=== PATIENT | female | born 1965 | race Caucasian/White ===

== ENCOUNTER 2017-11-10 19:30 | Inpatient (IN) | payer MEDICARE, MEDICAID ==
[2017-11-10 20:46] LABS: ABS Basophils 0.1 10^3/ul (0-0.2); ABS Eosinophils 0 10^3/ul (0-0.6); ABS Lymphocytes 2.2 10^3/ul (1.0-4.8); ABS Monocytes 0.8 10^3/ul (0-0.8); ABS Neutrophils 5.8 10^3/ul (1.5-7.7); ABS Nucleated RBC 0.01 10^3/ul; Eosinophil % 0.1 % (0-6); Hematocrit 45 % (35-47); Hemoglobin 15.4 g/dl (12.0-16.0); Lymphocyte % 24.7 % (25-47); Mean Corpuscular HGB Conc 34 g/dl (31-36); Mean Corpuscular Hemoglobin 29 pg (27-31); Mean Corpuscular Volume 86 fL (80-97); Mean Platelet Volume 9 um3 (7.4-10.4); Nucleated Red Blood Cells % 0.1; Platelet Count 198 10^3/ul (150-450); Red Blood Count 5.23 10^6/ul (4.0-5.4); Red Cell Distribution Width 16 % (10.5-15)
[2017-11-10 20:58] LABS: EGFR Non-African American 79.3 (>60)
[2017-11-10] MEDS ORDERED: Ibuprofen TAB* 600 MG PO ONE (21:26)
[2017-11-10 22:59] LABS: Urine Appearance Cloudy; Urine Blood Negative (Negative); Urine Color Amber; Urine Ketones Negative (Negative); Urine Protein Negative (Negative); Urine Specific Gravity 1.025 (1.010-1.030); Urine Urobilinogen Negative (Negative)
--- NOTE | 2017-11-11 | ED ---
Psychiatric Complaint - HPI Summary HPI Summary: Patient presents to the ED with CC of depression, SI and anxiety. She states she just feels "sick" with heart racing, nausea, fatigue. She also has been burning herself frequently on the bilateral arms and there are new and old scars to the arms. Denies urinary symptoms, chest pain. Notes to pain in the bilateral arms. Last suicide attempt many years ago, but states she has been feeling sick for 8 months. Denies HI. Notes to SI, but denies currently. - History Of Current Complaint Chief Complaint: EDMentalHealth Time Seen by Provider: 11/10/17 19:53 Hx Obtained From: Patient Hx Last Menstrual Period: one month ago ?: No Onset/Duration: Sudden Onset Timing: Constant Severity Initially: Moderate Severity Currently: Moderate Aggravating Factor(s): Nothing Alleviating Factor(s): Nothing Associated Signs And Symptoms: Positive: Negative Related History: Positive For: Prior Psychiatric Issues Has Suicidal: Reports: Thoughts - Risk Factor(s) Completed Suicide Risk Factors: Negative - Allergies/Home Medications Allergies/Adverse Reactions: Allergies Allergy/AdvReac Type Severity Reaction Status Date / Time Lurasidone [From Latuda] Allergy Swelling Verified 11/10/17 21:02 Of Face,Lips,& Throat Home Medications: Home Medications Aclidinium [place] [Tudorza Pressair] 400 mcg INHH BID 11/11/17 [History Confirmed 11/11/17] Budesonide/Formote 160/4.5(NF) [Symbicort 160/4.5 (NF)] 2 puff INH BID 11/11/17 [History Confirmed 11/11/17] Clozapine [Clozaril] 100 mg PO BID 11/11/17 [History Confirmed 11/11/17] Ibuprofen TAB* [Motrin TAB* 400 MG] 400 mg PO Q8HR PRN 11/11/17 [History Confirmed 11/11/17] Loperamide CAP* [Imodium CAP*] 2 mg PO SEE INSTRUCTIONS PRN MDD 4 tabs/24hr period 11/11/17 [History Confirmed 11/11/17] Lorazepam [Ativan 0.5 MG TAB] 0.5 mg PO DAILY 11/11/17 [History Confirmed ] Olanzapine [Zyprexa] 10 mg PO QAM 11/11/17 [History Confirmed 11/11/17] Paroxetine HCl [Paxil] 10 mg PO QAM 11/11/17 [History Confirmed 11/11/17] Pindolol 5 mg PO QAM 11/11/17 [History Confirmed 11/11/17] busPIRone TAB* [Buspar TAB *] 30 mg PO BID 11/11/17 [History Confirmed 11/11/17] PMH/Surg Hx/FS Hx/Imm Hx Previously Healthy: No Endocrine/Hematology History: Reports: Hx Anticoagulant Therapy, Hx Systemic Lupus Erythematosus, Hx Thyroid Disease Denies: Hx Blood Disorders, Hx Blood Transfusions, Hx Bone Marrow Disease, Hx Diabetes, Hx Sickle Cell Disease, Hx Anemia, Hx Unexplained Bleeding, Other Endocrine/Hematological Disorders Cardiovascular History: Reports: Hx Angina, Hx Deep Vein Thrombosis, Hx Hypercholesterolemia Denies: Hx Aneurysm, Hx Angioplasty, Hx Auto Implanted Cardiovert Defib, Hx Cardiac Arrest, Hx Cardiomegaly, Hx Congenital Heart Disease, Hx Congestive Heart Failure, Hx Coronary Artery Disease, Hx Hypotension, Hx Hypertension, Hx Myocardial Infarction, Hx Pacemaker/ICD, Hx Peripheral Vascular Disease, Hx Rheumatic Fever, Hx Syncope, Hx Valvular Heart Disease, Other Cardiovascular Problems/Disorders Respiratory History: Reports: Hx Asthma, Hx Chronic Bronchitis, Hx Chronic Obstructive Pulmonary Disease (COPD), Hx Lung Cancer - surgery 1999, Hx Pleural Effusion, Hx Pneumonia, Hx Pulmonary Embolism, Other Respiratory Problems/ Disorders Denies: Hx Cystic Fibrosis, Hx Pulmonary Edema, Hx Seasonal Allergies, Hx Sleep Apnea GI History: Reports: Hx Gastroesophageal Reflux Disease, Hx Irritable Bowel Denies: Hx Cirrhosis, Hx Crohn's Disease, Hx Diverticulosis, Hx Gall Bladder Disease, Hx Gastrointestinal Bleed, Hx Hiatal Hernia, Hx Jaundice, Hx Obstructive Bowel, Hx Ileostomy, Hx Pyloric Stenosis, Hx Ulcer, Other GI Disorders History: Denies: Hx Acute Renal Failure, Hx Benign Prostatic Hyperplasia, Hx Chronic Renal Failure, Hx Dialysis, Hx Kidney Infection, Hx Kidney Stones, Hx Renal Disease, Other Problems/Disorders Musculoskeletal History: Reports: Hx Back Problems Denies: Hx Arthritis, Hx Bursitis, Hx Congenital Bone Abnormalities, Hx Fibromyalgia, Hx Gout, Hx Orthopedic Injury, Hx Osteoporosis, Hx Scoliosis, Hx Tendonitis, Other Musculoskeletal History Sensory History: Reports: Hx Contacts or Glasses, Hx Vision Problem Denies: Hx Cataracts, Hx Eye Injury, Hx Eye Prosthesis, Hx Glaucoma, Hx Macular Degeneration, Hx Deafness, Hx Hearing Aid, Hx Hearing Problem, Other Sensory Impairments Opthamlomology History: Reports: Hx Contacts or Glasses, Hx Vision Problem Denies: Hx Cataracts, Hx Eye Injury, Hx Eye Prosthesis, Hx Glaucoma, Hx Macular Degeneration, Other Sensory Impairments Neurological History: Reports: Other Neuro Impairments/Disorders - tardive dyskinesia Denies: Hx Dementia, Hx Developmental Delay, Hx Headaches, Hx Migraine, Hx Seizures, Hx Spinal Cord Injury, Hx Transient Ischemic Attacks (TIA) Psychiatric History: Reports: Hx Anxiety, Hx Depression, Hx Panic Disorder - TAKES MEDICATION FOR ANXIETY, Hx Post Traumatic Stress Disorder, Hx Inpatient Treatment, Hx Community Mental Health Tx, Hx Schizophrenia - Schizodepressive discorder, Hx Bipolar Disorder, Hx Suicide Attempt, Hx Substance Abuse, Other Psychiatric Issues/Disorders - schioeffect disorder Denies: Hx Attention Deficit Hyperactivity Disorder, Hx Eating Disorder, Hx of Violent Episodes Against Others - Cancer History Cancer Type, Location and Year: rt lung 2006 Hx Chemotherapy: No Hx Radiation Therapy: No - Surgical History Surgery Procedure, Year, and Place: partial lobectomy right lung 2006, LSP SURGERY February 2014, back surgery 2014 Hx Anesthesia Reactions: No - Immunization History Date of Tetanus Vaccine: 2011 Date of Influenza Vaccine: None Hx Pertussis Vaccination: No Immunizations Up to Date: Unable to Obtain/Confirm Infectious Disease History: No Infectious Disease History: Denies: Hx Clostridium Difficile, Hx Hepatitis, Hx Human Immunodeficiency Virus (HIV), Hx Shingles, Hx Tuberculosis, Traveled Outside the in Last 30 Days - Social History Occupation: Unemployed Lives: With Family Alcohol Use: None Alcohol Amount: Pt denies Hx Substance Use: No Substance Use Type: Reports: None Hx Tobacco Use: Yes Smoking Status (MU): Heavy Every Day Tobacco Smoker Type: Cigarettes Amount Used/How Often: 1PPD X 30 YRS Length of Time of Smoking/Using Tobacco: 30 YEARS Have You Smoked in the Last Year: Yes Review of Systems Constitutional: Negative Negative: Fever, Chills, Fatigue Eyes: Negative Cardiovascular: Negative Respiratory: Negative Gastrointestinal: Negative Positive: no symptoms reported, see HPI Musculoskeletal: Negative Neurological: Negative Psychological: Normal All Other Systems Reviewed And Are Negative: Yes Physical Exam Triage Information Reviewed: Yes Vital Signs On Initial Exam: Initial Vitals Temp Pulse Resp BP Pulse Ox 97.1 F 109 22 131/79 96 11/10/17 19:51 11/10/17 19:51 11/10/17 19:51 11/10/17 19:51 11/10/17 19:51 Vital Signs Reviewed: Yes Appearance: Positive: Well-Appearing, Well-Nourished Skin: Positive: Warm, Skin Color Reflects Adequate Perfusion, Other - bilateral arms with perry Eyes: Positive: EOMI, SHANIA, Conjunctiva Clear Neck: Positive: Supple, No Lymphadenopathy Respiratory/Lung Sounds: Positive: Clear to Auscultation Cardiovascular: Positive: RRR, Pulses are Symmetrical in both Upper and Lower Extremities Musculoskeletal: Positive: Normal, Strength/ROM Intact Neurological: Positive: Speech Normal Psychiatric: Positive: Normal, Affect/Mood Appropriate AVPU Assessment: Alert Diagnostics - Vital Signs Vital Signs Temp Pulse Resp BP Pulse Ox 11/10/17 19:51 97.1 F 109 22 131/79 96 - Laboratory Lab Results: Lab Results 11/10/17 11/10/17 11/10/17 Range/Units 20:31 20:31 22:40 WBC 9.0 (3.5-10.8) 10^3/ul RBC 5.23 (4.0-5.4) 10^6/ul Hgb 15.4 (12.0-16.0) g/dl Hct 45 (35-47) % MCV 86 (80-97) fL MCH 29 (27-31) pg MCHC 34 (31-36) g/dl RDW 16 H (10.5-15) % Plt Count 198 (150-450) 10^3/ul MPV 9 (7.4-10.4) um3 Neut % (Auto) 65.2 (38-83) % Lymph % (Auto) 24.7 L (25-47) % [facility] % (Auto) 9.3 H (1-9) % Eos % (Auto) 0.1 (0-6) % Baso % (Auto) 0.7 (0-2) % Absolute Neuts (auto) 5.8 (1.5-7.7) 10^3/ul Absolute Lymphs (auto) 2.2 (1.0-4.8) 10^3/ul Absolute Monos (auto) 0.8 (0-0.8) 10^3/ul Absolute Eos (auto) 0 (0-0.6) 10^3/ul Absolute Basos (auto) 0.1 (0-0.2) 10^3/ul Absolute Nucleated RBC 0.01 10^3/ul Nucleated RBC % 0.1 Sodium 139 (133-145) mmol/L Potassium 3.8 (3.5-5.0) mmol/L Chloride 106 (101-111) mmol/L Carbon Dioxide 24 (22-32) mmol/L Anion Gap 9 (2-11) mmol/L BUN 13 (6-24) mg/dL Creatinine 0.76 (0.51-0.95) mg/dL Est GFR ( Amer) 102.0 (>60) Est GFR (Non-Af Amer) 79.3 (>60) BUN/Creatinine Ratio 17.1 (8-20) Glucose 113 H (70-100) mg/dL Calcium 9.0 (8.6-10.3) mg/dL Total Bilirubin 0.30 (0.2-1.0) mg/dL AST 14 (13-39) U/L ALT 14 (7-52) U/L Alkaline Phosphatase 105 H (34-104) U/L Total Protein 6.5 (6.4-8.9) g/dL Albumin 3.6 (3.2-5.2) g/dL Globulin 2.9 (2-4) g/dL Albumin/Globulin Ratio 1.2 (1-3) TSH 5.43 (0.34-5.60) mcIU/mL Urine Color Urine Appearance Urine pH (5-9) Ur Specific [place] (1.010-1.030) Urine Protein (Negative) Urine Ketones (Negative) Urine Blood (Negative) Urine Nitrate (Negative) Urine Bilirubin (Negative) Urine Urobilinogen (Negative) Ur Leukocyte Esterase (Negative) Urine WBC (Auto) (Absent) Urine RBC (Auto) (Absent) Ur Squamous Epith Cells (Absent) Urine Bacteria (Absent) Urine Glucose (Negative) Urine Ascorbic Acid (Negative) Salicylates < 2.50 (<30) mg/dL Urine Opiates Screen None detected (None Detect) Acetaminophen < 15 mcg/mL Ur Barbiturates Screen None detected (None Detect) Ur Phencyclidine Scrn None detected (None Detect) Ur Amphetamines Screen None detected (None Detect) U Benzodiazepines Scrn None detected (None Detect) Urine Cocaine Screen None detected (None Detect) U Cannabinoids Screen None detected (None Detect) Serum Alcohol < 10 (<10) mg/dL 11/10/17 Range/Units 22:40 WBC (3.5-10.8) 10^3/ul RBC (4.0-5.4) 10^6/ul Hgb (12.0-16.0) g/dl Hct (35-47) % MCV (80-97) fL MCH (27-31) pg MCHC (31-36) g/dl RDW (10.5-15) % Plt Count (150-450) 10^3/ul MPV (7.4-10.4) um3 Neut % (Auto) (38-83) % Lymph % (Auto) (25-47) % [facility] % (Auto) (1-9) % Eos % (Auto) (0-6) % Baso % (Auto) (0-2) % Absolute Neuts (auto) (1.5-7.7) 10^3/ul Absolute Lymphs (auto) (1.0-4.8) 10^3/ul Absolute Monos (auto) (0-0.8) 10^3/ul Absolute Eos (auto) (0-0.6) 10^3/ul Absolute Basos (auto) (0-0.2) 10^3/ul Absolute Nucleated RBC 10^3/ul Nucleated RBC % Sodium (133-145) mmol/L Potassium (3.5-5.0) mmol/L Chloride (101-111) mmol/L Carbon Dioxide (22-32) mmol/L Anion Gap (2-11) mmol/L BUN (6-24) mg/dL Creatinine (0.51-0.95) mg/dL Est GFR ( Amer) (>60) Est GFR (Non-Af Amer) (>60) BUN/Creatinine Ratio (8-20) Glucose (70-100) mg/dL Calcium (8.6-10.3) mg/dL Total Bilirubin (0.2-1.0) mg/dL AST (13-39) U/L ALT (7-52) U/L Alkaline Phosphatase (34-104) U/L Total Protein (6.4-8.9) g/dL Albumin (3.2-5.2) g/dL Globulin (2-4) g/dL Albumin/Globulin Ratio (1-3) TSH (0.34-5.60) mcIU/mL Urine Color Maty Urine Appearance Cloudy Urine pH 5.0 (5-9) Ur Specific [place] 1.025 (1.010-1.030) Urine Protein Negative (Negative) Urine Ketones Negative (Negative) Urine Blood Negative (Negative) Urine Nitrate Positive H (Negative) Urine Bilirubin Negative (Negative) Urine Urobilinogen Negative (Negative) Ur Leukocyte Esterase 1+ H (Negative) Urine WBC (Auto) 3+(>20/hpf) H (Absent) Urine RBC (Auto) Absent (Absent) Ur Squamous Epith Cells Present H (Absent) Urine Bacteria 1+ H (Absent) Urine Glucose Negative (Negative) Urine Ascorbic Acid * H (Negative) Salicylates (<30) mg/dL Urine Opiates Screen (None Detect) Acetaminophen mcg/mL Ur Barbiturates Screen (None Detect) Ur Phencyclidine Scrn (None Detect) Ur Amphetamines Screen (None Detect) U Benzodiazepines Scrn (None Detect) Urine Cocaine Screen (None Detect) U Cannabinoids Screen (None Detect) Serum Alcohol (<10) mg/dL Result Diagrams: 11/10/17 20:31 11/10/17 20:31 Lab Statement: Any lab studies that have been ordered have been reviewed, and results considered in the medical decision making process. Course/Dx - Course Course Of Treatment: Patient presents to the ED with CC of SI, feeling sick, and self harm. She is cleared for MHU at this time. - Differential Dx/Clinical Impression Provider Diagnosis: Depression Discharge - Discharge Plan Condition: Stable Disposition: ADMITTED TO [facility]
[2017-11-11] MEDS ORDERED: Al Hydrox/Mg Hydrox/Simet LIQ* 30 ML UDC PO PRN (02:53)
[2017-11-11] MEDS ORDERED: Acetaminophen TAB* 325 MG PO PRN (02:53)
[2017-11-11] MEDS ORDERED: Loperamide CAP* 2 MG PO PRN (03:22)
[2017-11-11] MEDS: Albuterol HFA INHALER* 8 gm MDI INH SCH ×5 (06:15→21:48)
[2017-11-11] MEDS: LORazepam TAB(*) 0.5 MG PO SCH ×2 (06:30→08:48)
[2017-11-11] MEDS ORDERED: LORazepam TAB(*) 0.5 MG ONE (06:33)
[2017-11-11] MEDS: Nicotine PATCH 21 MG/24 HR* PATCH TRANSDERM SCH (08:44)
[2017-11-11] MEDS: Gabapentin CAP(*) 300 MG PO SCH ×2 (08:46→21:47)
[2017-11-11] MEDS: CloZAPine TAB* 100 MG TAB PO SCH (08:47)
[2017-11-11] MEDS: OLANzapine TAB* 10 MG PO SCH (08:47)
[2017-11-11] MEDS: busPIRone TAB* 30 MG PO SCH ×2 (08:47→21:47)
[2017-11-11] MEDS: PARoxetine HCL TAB* 10 MG PO SCH (08:47)
[2017-11-11] MEDS: Vitamin B Complex TAB PO SCH (08:47)
[2017-11-11] MEDS: Vitamin THERAPEUTIC TAB PO SCH (08:48)
[2017-11-11] MEDS: Atorvastatin* 10 MG TAB PO SCH (08:48)
[2017-11-11] MEDS: Mouth Piece, Nicotine* 1 EACH CARTRIDGE INH SCH (08:52)
[2017-11-11] MEDS: Nicotine Inhaler* 10 MG AMP INH PRN ×2 (08:52→18:51)
[2017-11-11] MEDS: PTO: Aclidinium POWDER MDI(NF) INH SCH ×2 (09:02→21:48)
[2017-11-11] MEDS: PINDOLOL 10 MG PO SCH (09:08)
[2017-11-11] MEDS: Mometasone/Formoter 200/5 MDI INH SCH ×2 (09:09→21:49)
[2017-11-11] MEDS: Gabapentin CAP(*) 400 MG PO SCH (13:06)
[2017-11-11] MEDS: Warfarin TAB(*) 7.5 MG PO SCH (17:49)
[2017-11-11] MEDS: Omeprazole CAP* 20 MG PO SCH (17:49)
[2017-11-11] MEDS ORDERED: CloZAPine TAB* 100 MG TAB PO SCH (21:00)
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
[2017-11-11] MEDS: traZODone TAB* 100 MG PO SCH (21:48)
[2017-11-11] MEDS: Nicotine Patch Removal NOTE PATCH OFF SCH (21:49)
[2017-11-12] MEDS: Albuterol HFA INHALER* 8 gm MDI INH SCH ×6 (01:19→20:13)
[2017-11-12] MEDS: PTO: Aclidinium POWDER MDI(NF) INH SCH ×2 (07:25→20:11)
[2017-11-12 08:32] LABS: INR 1.44 (0.77-1.02)
[2017-11-12] MEDS: PINDOLOL 10 MG PO SCH (08:50)
[2017-11-12] MEDS: Atorvastatin* 10 MG TAB PO SCH (09:19)
[2017-11-12] MEDS: Mometasone/Formoter 200/5 MDI INH SCH ×2 (09:20→20:10)
[2017-11-12] MEDS: CloZAPine TAB* 100 MG TAB PO SCH (09:20)
[2017-11-12] MEDS: busPIRone TAB* 30 MG PO SCH ×2 (09:20→20:12)
[2017-11-12] MEDS: Gabapentin CAP(*) 300 MG PO SCH ×2 (09:20→20:12)
[2017-11-12] MEDS: Nicotine PATCH 21 MG/24 HR* PATCH TRANSDERM SCH (09:21)
[2017-11-12] MEDS: PARoxetine HCL TAB* 10 MG PO SCH (09:21)
[2017-11-12] MEDS: OLANzapine TAB* 10 MG PO SCH (09:21)
[2017-11-12] MEDS: Vitamin B Complex TAB PO SCH (09:21)
[2017-11-12] MEDS: Vitamin THERAPEUTIC TAB PO SCH (09:22)
[2017-11-12] MEDS: LORazepam TAB(*) 0.5 MG PO SCH (09:52)
[2017-11-12] MEDS: Nicotine Inhaler* 10 MG AMP INH PRN ×2 (10:08→18:07)
[2017-11-12] MEDS: Gabapentin CAP(*) 400 MG PO SCH (14:56)
[2017-11-12] MEDS ORDERED: CloZAPine TAB* 100 MG TAB PO SCH (15:44)
[2017-11-12] MEDS ORDERED: DiMENhydriNATE TAB* 50 MG TAB PO PRN (16:08)
--- NOTE | 2017-11-12 16:17 | PN ---
Subjective - Subjective Subjective: Patient reports increase in anxiety. She endorses command AH telling her to hurt herself. She states that burning her arms distracts from the AH. She reports ambivalence about being alive. She states she is isolative to her home and spends most of every day on her couch. She states that she had to put her 14yo dog to sleep a few months ago and this is still difficult for her. She endorses nausea, weakness and feeling "shaky." We discuss her current medical diagnoses. She declines desire to stop smoking and states that she smokes in her house most of the day. Varun states her VNS nurse, Brooklynn, told her that clozapine may be causing physical symptoms. Technical Illustrator informed patient that I spoke with Dr Ortiz and he mentioned that she was less symptomatic when taking higher dose. She agrees to increase dose in hospital setting. Technical Illustrator notifies her of message received from Dr Bradley and suggestion for amoxicillin for UTI. She c/o dizziness and board writer assists her to bed. Objective - Appearance Appearance: Well Developed/Nourished Dysmorphic Features: Yes Hygiene: Dirty Grooming: Disheveled - Behavior Psychomotor Activities: Abnormal-Increased - jaw movement back and forth Exhibits Abnormal Movement: Yes - Attitude and Relatedness Attitude and Relatedness: Cooperative Eye Contact: Good - Speech Quality: Unpressured Latencies: Normal Quantity: Appropriate - Mood Patient's Decription of Mood: "Anxious" - Affect Observed Affect: Depressed Affect Consistent with: Dysphoria - Thought Process Patient's Thought Process: Coherent, Goal Directed Thought Content: Yes Passive Wish, No Suicidal Planning, No Homicidal Ideation, No Paranoid Ideation - Sensorium Experiencing Hallucinations: Yes Type of Hallucinations: Visual: No, Auditory: Yes, Command: Yes - Level of Consciousness Level of Consciousness: Alert Orientation: Yes Intact, Yes Orientated to Time, Yes Orientated to Place, Yes Orientated to Person - Impulse Control Impulse Control: Tenuous - Insight and Judgement Insight and Judgement: Fair - Group Participation Particating in Group Activities: Yes - Medication Management Medication Management Adherence: Yes Assessment - Assessment Merits Inpatient Hospitalization: For Immediate Safety, For Stabilization, Pending Safe DC Plan Inpatient DSM-IV Dx: schizoaffective d/o; borderline personality d/o. UTI; HTN ; hypercholesteremia; COPD Clinical Impression: 52yo white female with hx of schizoaffective d/o, severe trauma history, borderline personality d/o. Admitted voluntary due to increase in command hallucinations and SIB. Clozapine dose decreased in outpatient setting per her request. According to outpatient psychiatrist, she was asymptomatic at 600mg. Patient agrees to titrate dose in hospital setting. She merits hospitalization for immediate safety and stabilization. Plan - Plan Treatment Plan: Name: VARUN GARCIA Birthdate: 1965 [id number] continue acute intensive psychiatric treatment. titrate clozapine hs dose 50mg/ day. increase lorazepam dose. Continue to collaborate with PCP and outpatient MH providers. Add amoxicillin for UTI. Continued Medication Management: Start Medication Medications: Current Medications Acetaminophen (Tylenol Tab*) 650 mg PO Q4H PRN PRN Reason: PAIN or TEMP > 101 F Aclidinium [place] (Tudorza Pressair Mdi(Nf)) 1 puff INH BID [facility] Last Admin: 11/12/17 07:25 Dose: Not Given Al Hydrox/Mg Hydrox/Simethicone (Maalox Plus*) 30 ml PO Q4H PRN PRN Reason: INDIGESTION Albuterol (Ventolin Hfa Inhaler*) 2 puff INH Q4H [facility] Last Admin: 11/12/17 11:20 Dose: 2 puff Amoxicillin (Amoxicillin Po (*)) 500 mg PO BID [facility] Atorvastatin Calcium (Lipitor*) 10 mg PO DAILY [facility] Last Admin: 11/12/17 09:19 Dose: 10 mg Buspirone HCl (Buspar Tab*) 30 mg PO BID [facility] Last Admin: 11/12/17 09:20 Dose: 30 mg Clozapine (Clozapine Tab*) 100 mg PO QAM [facility] Last Admin: 11/12/17 09:20 Dose: 100 mg Clozapine (Clozapine Tab*) 350 mg PO BEDTIME [facility] Stop: 11/13/17 09:00 Clozapine (Clozapine Tab*) 400 mg PO DAILY [facility] Stop: 11/14/17 09:00 Device (Nicotine Mouth Piece*) 1 each INH .CARTRIDGE [facility] Last Admin: 11/11/17 08:52 Dose: 1 each Dimenhydrinate (Dramamine Tab*) 50 mg PO Q6H PRN PRN Reason: dizziness Gabapentin (Neurontin Cap(*)) 600 mg PO BID [facility] Last Admin: 11/12/17 09:20 Dose: 600 mg Gabapentin (Neurontin Cap(*)) 1,200 mg PO DAILY@1400 [facility] Last Admin: 11/12/17 14:56 Dose: 1,200 mg Ibuprofen (Motrin Tab*) 400 mg PO Q8H PRN PRN Reason: PAIN Loperamide HCl (Imodium Cap*) 2 mg PO .SEE INSTRUCTIONS PRN PRN Reason: LOOSE STOOL Lorazepam (Ativan Tab(*)) 0.5 mg PO TID PRN PRN Reason: ANXIETY Mometasone Furoate/Formoterol Fumar (Dulera 200/5 Mdi*) 2 puff INH BID [facility] Last Admin: 11/12/17 09:20 Dose: 2 puff Multivitamins (Theragran Tab*) 1 tab PO DAILY [facility] Last Admin: 11/12/17 09:22 Dose: 1 tab Nicotine (Nicotine Inhaler*) 10 mg INH Q2H PRN PRN Reason: CRAVING Last Admin: 11/12/17 10:08 Dose: 10 mg Nicotine (Nicotine Patch 21 Mg/24 Hr*) 1 patch TRANSDERM DAILY [facility] Last Admin: 11/12/17 09:21 Dose: 1 patch Nicotine Polacrilex (Nicotine Gum*) 2 mg PO Q2H PRN PRN Reason: CRAVING Olanzapine (Zyprexa Tab*) 10 mg PO QAM [facility] Last Admin: 11/12/17 09:21 Dose: 10 mg Omeprazole (Prilosec Cap*) 20 mg PO DAILY@1700 [facility] Last Admin: 11/11/17 17:49 Dose: 20 mg Paroxetine HCl (Paxil Tab*) 10 mg PO QAM [facility] Last Admin: 11/12/17 09:21 Dose: 10 mg Pharmacy Profile Note (Nicotine Patch Removal Note*) 1 note PATCH OFF 2100 [facility] Last Admin: 11/11/17 21:49 Dose: 1 note Pindolol (Pindolol(Nf)) 5 mg PO QAM [facility] Last Admin: 11/12/17 08:50 Dose: Not Given Trazodone HCl (Desyrel Tab*) 100 mg PO BEDTIME [facility] Last Admin: 11/11/17 21:48 Dose: 100 mg Vitamin B Complex/Vitamin E (Complex B-100*) 1 tab PO DAILY [facility] Last Admin: 11/12/17 09:21 Dose: 1 tab Warfarin Sodium (Coumadin Tab(*)) 5 mg PO SuMoWeFrSa@1700 [facility] Warfarin Sodium (Coumadin Tab(*)) 7.5 mg PO TuTh@1700 [facility] Last Admin: 11/11/17 17:49 Dose: 7.5 mg - Discharge Plan Discharge Plan: Outpatient Follow Up Outpatient Program: [facility]
[2017-11-12] MEDS: Omeprazole CAP* 20 MG PO SCH (16:35)
[2017-11-12] MEDS: Warfarin TAB(*) 5 MG PO SCH (16:35)
[2017-11-12] MEDS ORDERED: Warfarin TAB(*) 5 MG PO ONE (17:00)
[2017-11-12] MEDS: LORazepam TAB(*) 0.5 MG PO PRN (17:41)
[2017-11-12] MEDS: traZODone TAB* 100 MG PO SCH (20:12)
[2017-11-12] MEDS: Amoxicillin PO (*) 500 MG CAP PO SCH (20:15)
[2017-11-12] MEDS: Nicotine Patch Removal NOTE PATCH OFF SCH (20:19)
[2017-11-12] MEDS: Meclizine TAB* 12.5 MG PO SCH (22:54)
[2017-11-13] MEDS: Albuterol HFA INHALER* 8 gm MDI INH SCH ×6 (04:00→22:12)
[2017-11-13] MEDS: Meclizine TAB* 12.5 MG PO SCH ×3 (07:38→22:18)
[2017-11-13] MEDS: Atorvastatin* 10 MG TAB PO SCH (09:12)
[2017-11-13] MEDS: OLANzapine TAB* 10 MG PO SCH (09:12)
[2017-11-13] MEDS: Vitamin THERAPEUTIC TAB PO SCH (09:12)
[2017-11-13] MEDS: CloZAPine TAB* 100 MG TAB PO SCH ×2 (09:13)
[2017-11-13] MEDS: busPIRone TAB* 30 MG PO SCH ×2 (09:14→22:13)
[2017-11-13] MEDS: Amoxicillin PO (*) 500 MG CAP PO SCH ×2 (09:14→22:15)
[2017-11-13] MEDS: Gabapentin CAP(*) 300 MG PO SCH ×2 (09:14→22:13)
[2017-11-13] MEDS: PARoxetine HCL TAB* 10 MG PO SCH (09:15)
[2017-11-13] MEDS: Vitamin B Complex TAB PO SCH (09:15)
[2017-11-13] MEDS: Mometasone/Formoter 200/5 MDI INH SCH ×2 (09:16→22:13)
[2017-11-13] MEDS: PINDOLOL 10 MG PO SCH (09:17)
[2017-11-13] MEDS: Nicotine PATCH 21 MG/24 HR* PATCH TRANSDERM SCH (09:22)
[2017-11-13] MEDS: PTO: Aclidinium POWDER MDI(NF) INH SCH ×2 (09:25→22:14)
[2017-11-13] MEDS: Gabapentin CAP(*) 400 MG PO SCH (13:05)
[2017-11-13] MEDS: Nicotine Inhaler* 10 MG AMP INH PRN ×3 (13:20→23:50)
[2017-11-13] MEDS: LORazepam TAB(*) 0.5 MG PO PRN ×3 (15:37→23:51)
--- NOTE | 2017-11-13 16:39 | PN ---
Subjective - Subjective Date of Service: 11/13/17 Service Type: 38124 Hosp care 15 min low complexity Subjective: Was laying on the couch in dayroom when I saw her. She wasnt willing to talk to me because of her fear that I might take her to [facility] if she talks to me. Even after reassurance she was reluctant to be open. Says she burs self to reduce the voices which tall he all negative staffs and at times to harm self. Complaining of insomnia. Denies SI/HI. Objective - Appearance Appearance: Obese Dysmorphic Features: No Hygiene: Normal Grooming: Fairly Well Kept - Behavior Psychomotor Activities: Normal Exhibits Abnormal Movement: No - Attitude and Relatedness Attitude and Relatedness: Superficially Cooperative Eye Contact: Fair - Speech Quality: Unpressured Latencies: Normal Quantity: Appropriate - Mood Patient's Decription of Mood: "Okay" - Affect Observed Affect: Constricted Affect Consistent with: Dysphoria - Thought Process Patient's Thought Process: Coherent Thought Content: No Passive Wish, No Suicidal Planning, No Homicidal Ideation, No Paranoid Ideation - Sensorium Experiencing Hallucinations: Yes Type of Hallucinations: Visual: No, Auditory: Yes, Command: Yes - Level of Consciousness Level of Consciousness: Alert Orientation: Yes Intact, Yes Orientated to Time, Yes Orientated to Place, Yes Orientated to Person - Impulse Control Impulse Control: Impaired - Insight and Judgement Insight and Judgement: Poor - Group Participation Particating in Group Activities: No - Medication Management Medication Management Adherence: Yes Assessment - Assessment Merits Inpatient Hospitalization: For Immediate Safety, For Stabilization, Pending Safe DC Plan Inpatient DSM-IV Dx: schizoaffective d/o; borderline personality d/o. UTI; HTN ; hypercholesteremia; COPD Plan - Plan Treatment Plan: Name: VARUN GARCIA Birthdate: 1965 [id number] Continued Medication Management: Continue Outpt Medication Medications: Current Medications Acetaminophen (Tylenol Tab*) 650 mg PO Q4H PRN PRN Reason: PAIN or TEMP > 101 F Aclidinium [place] (Tudorza Pressair Mdi(Nf)) 1 puff INH BID [facility] Last Admin: 11/13/17 09:25 Dose: Not Given Al Hydrox/Mg Hydrox/Simethicone (Maalox Plus*) 30 ml PO Q4H PRN PRN Reason: INDIGESTION Albuterol (Ventolin Hfa Inhaler*) 2 puff INH Q4H [facility] Last Admin: 11/13/17 15:37 Dose: 2 puff Amoxicillin (Amoxicillin Po (*)) 500 mg PO BID [facility] Last Admin: 11/13/17 09:14 Dose: 500 mg Atorvastatin Calcium (Lipitor*) 10 mg PO DAILY [facility] Last Admin: 11/13/17 09:12 Dose: 10 mg Buspirone HCl (Buspar Tab*) 30 mg PO BID [facility] Last Admin: 11/13/17 09:14 Dose: 30 mg Clozapine (Clozapine Tab*) 100 mg PO QAM [facility] Last Admin: 11/13/17 09:13 Dose: 100 mg Clozapine (Clozapine Tab*) 400 mg PO DAILY [facility] Stop: 11/14/17 09:00 Last Admin: 11/13/17 09:13 Dose: 400 mg Device (Nicotine Mouth Piece*) 1 each INH .CARTRIDGE [facility] Last Admin: 11/11/17 08:52 Dose: 1 each Gabapentin (Neurontin Cap(*)) 600 mg PO BID [facility] Last Admin: 11/13/17 09:14 Dose: 600 mg Gabapentin (Neurontin Cap(*)) 1,200 mg PO DAILY@1400 [facility] Last Admin: 11/13/17 13:05 Dose: 1,200 mg Ibuprofen (Motrin Tab*) 400 mg PO Q8H PRN PRN Reason: PAIN Loperamide HCl (Imodium Cap*) 2 mg PO .SEE INSTRUCTIONS PRN PRN Reason: LOOSE STOOL Lorazepam (Ativan Tab(*)) 0.5 mg PO TID PRN PRN Reason: ANXIETY Last Admin: 11/13/17 15:37 Dose: 0.5 mg Meclizine HCl (Antivert Tab*) 12.5 mg PO Q8HR [facility] Last Admin: 11/13/17 14:30 Dose: 12.5 mg Mometasone Furoate/Formoterol Fumar (Dulera 200/5 Mdi*) 2 puff INH BID [facility] Last Admin: 11/13/17 09:16 Dose: 2 puff Multivitamins (Theragran Tab*) 1 tab PO DAILY [facility] Last Admin: 11/13/17 09:12 Dose: 1 tab Nicotine (Nicotine Inhaler*) 10 mg INH Q2H PRN PRN Reason: CRAVING Last Admin: 11/13/17 13:20 Dose: 10 mg Nicotine (Nicotine Patch 21 Mg/24 Hr*) 1 patch TRANSDERM DAILY [facility] Last Admin: 11/13/17 09:22 Dose: 1 patch Nicotine Polacrilex (Nicotine Gum*) 2 mg PO Q2H PRN PRN Reason: CRAVING Olanzapine (Zyprexa Tab*) 10 mg PO QAM [facility] Last Admin: 11/13/17 09:12 Dose: 10 mg Omeprazole (Prilosec Cap*) 20 mg PO DAILY@1700 [facility] Last Admin: 11/12/17 16:35 Dose: 20 mg Paroxetine HCl (Paxil Tab*) 10 mg PO QAM [facility] Last Admin: 11/13/17 09:15 Dose: 10 mg Pharmacy Profile Note (Nicotine Patch Removal Note*) 1 note PATCH OFF 2100 [facility] Last Admin: 11/12/17 20:19 Dose: 1 note Pindolol (Pindolol(Nf)) 5 mg PO QAM [facility] Last Admin: 11/13/17 09:17 Dose: 5 mg Trazodone HCl (Desyrel Tab*) 100 mg PO BEDTIME [facility] Last Admin: 11/12/17 20:12 Dose: 100 mg Vitamin B Complex/Vitamin E (Complex B-100*) 1 tab PO DAILY [facility] Last Admin: 11/13/17 09:15 Dose: 1 tab Warfarin Sodium (Coumadin Tab(*)) 5 mg PO SuMoWeFrSa@1700 [facility] Last Admin: 11/12/17 16:35 Dose: 5 mg Warfarin Sodium (Coumadin Tab(*)) 7.5 mg PO TuTh@1700 [facility] Last Admin: 11/11/17 17:49 Dose: 7.5 mg - Discharge Plan Discharge Plan: Outpatient Follow Up Outpatient Program: [facility]
[2017-11-13] MEDS: Omeprazole CAP* 20 MG PO SCH (17:26)
[2017-11-13] MEDS: Warfarin TAB(*) 5 MG PO SCH (17:27)
[2017-11-13] MEDS: traZODone TAB* 100 MG PO SCH (22:15)
[2017-11-13] MEDS: Nicotine Patch Removal NOTE PATCH OFF SCH (22:20)
[2017-11-14] MEDS: Albuterol HFA INHALER* 8 gm MDI INH SCH ×6 (00:13→20:44)
[2017-11-14] MEDS: Meclizine TAB* 12.5 MG PO SCH ×3 (05:56→20:46)
[2017-11-14] MEDS: Nicotine Inhaler* 10 MG AMP INH PRN ×3 (07:30→23:49)
[2017-11-14] MEDS: Vitamin THERAPEUTIC TAB PO SCH (10:44)
[2017-11-14] MEDS: CloZAPine TAB* 100 MG TAB PO SCH ×2 (10:46→10:47)
[2017-11-14] MEDS: PINDOLOL 10 MG PO SCH (10:46)
[2017-11-14] MEDS: Vitamin B Complex TAB PO SCH (10:47)
[2017-11-14] MEDS: Atorvastatin* 10 MG TAB PO SCH (10:47)
[2017-11-14] MEDS: busPIRone TAB* 30 MG PO SCH ×2 (10:47→20:46)
[2017-11-14] MEDS: PARoxetine HCL TAB* 10 MG PO SCH (10:48)
[2017-11-14] MEDS: Amoxicillin PO (*) 500 MG CAP PO SCH ×2 (10:48→20:46)
[2017-11-14] MEDS: OLANzapine TAB* 10 MG PO SCH (10:48)
[2017-11-14] MEDS: Nicotine PATCH 21 MG/24 HR* PATCH TRANSDERM SCH (10:48)
[2017-11-14] MEDS: Mometasone/Formoter 200/5 MDI INH SCH ×2 (10:48→20:44)
[2017-11-14] MEDS: Gabapentin CAP(*) 300 MG PO SCH ×2 (10:49→20:45)
[2017-11-14] MEDS: PTO: Aclidinium POWDER MDI(NF) INH SCH ×2 (10:58→20:48)
[2017-11-14] MEDS: Gabapentin CAP(*) 400 MG PO SCH (14:40)
[2017-11-14] MEDS: Omeprazole CAP* 20 MG PO SCH (16:07)
[2017-11-14] MEDS: Warfarin TAB(*) 5 MG PO SCH (16:08)
[2017-11-14] MEDS: LORazepam TAB(*) 0.5 MG PO PRN (18:19)
[2017-11-14] MEDS: Nicotine GUM* 2 MG PO PRN (19:51)
[2017-11-14] MEDS: traZODone TAB* 100 MG PO SCH (20:46)
[2017-11-14] MEDS: Nicotine Patch Removal NOTE PATCH OFF SCH (20:48)
[2017-11-15] MEDS: Albuterol HFA INHALER* 8 gm MDI INH SCH ×6 (00:30→19:50)
[2017-11-15] MEDS: LORazepam TAB(*) 0.5 MG PO PRN ×3 (00:45→10:20)
[2017-11-15] MEDS: Nicotine Inhaler* 10 MG AMP INH PRN ×5 (06:06→18:41)
[2017-11-15] MEDS: Meclizine TAB* 12.5 MG PO SCH ×3 (06:06→21:31)
[2017-11-15] MEDS: Gabapentin CAP(*) 300 MG PO SCH ×2 (10:11→20:36)
[2017-11-15] MEDS: Vitamin THERAPEUTIC TAB PO SCH (10:12)
[2017-11-15] MEDS: OLANzapine TAB* 10 MG PO SCH (10:12)
[2017-11-15] MEDS: CloZAPine TAB* 100 MG TAB PO SCH ×2 (10:13→20:35)
[2017-11-15] MEDS: PARoxetine HCL TAB* 10 MG PO SCH (10:13)
[2017-11-15] MEDS: Mometasone/Formoter 200/5 MDI INH SCH ×2 (10:13→20:40)
[2017-11-15] MEDS: busPIRone TAB* 30 MG PO SCH ×2 (10:14→20:35)
[2017-11-15] MEDS: Amoxicillin PO (*) 500 MG CAP PO SCH ×2 (10:14→20:34)
[2017-11-15] MEDS: Atorvastatin* 10 MG TAB PO SCH (10:14)
[2017-11-15] MEDS: Vitamin B Complex TAB PO SCH (10:14)
[2017-11-15] MEDS: PINDOLOL 10 MG PO SCH (10:15)
[2017-11-15] MEDS: Nicotine PATCH 21 MG/24 HR* PATCH TRANSDERM SCH (10:16)
[2017-11-15] MEDS: PTO: Aclidinium POWDER MDI(NF) INH SCH ×2 (10:18→20:39)
--- NOTE | 2017-11-15 13:51 | PN ---
Subjective - Subjective Date of Service: 11/15/17 Service Type: 95359 Hosp care 15 min low complexity Subjective: Varun was unhappy the entire day today pe all reports and wasn't willing to take a call from he mom. Later went back to bed saying she wasn't feeling well physically. Reports of ongoing command auditory hallucinations, voices telling her to hurt self. However, she doesn't have any plan or desire to do so. Unable to fall asleep at night most possibly for sleeping during the day ( poor sleep hygiene ). Objective - Appearance Appearance: Obese Dysmorphic Features: No Hygiene: Mal-odorous Grooming: Disheveled - Behavior Psychomotor Activities: Abnormal-Decreased Exhibits Abnormal Movement: No - Attitude and Relatedness Attitude and Relatedness: Minimally Cooperative Eye Contact: Poor - Speech Quality: Unpressured Latencies: Normal Quantity: Terse - Mood Patient's Decription of Mood: "Terrible" - Affect Observed Affect: Constricted Affect Consistent with: Dysphoria - Thought Process Patient's Thought Process: Coherent, Circumstantial, Impoverished Thought Content: No Passive Wish, No Suicidal Planning, No Homicidal Ideation, No Paranoid Ideation - Sensorium Experiencing Hallucinations: Yes Type of Hallucinations: Visual: No, Auditory: Yes, Command: Yes - Level of Consciousness Level of Consciousness: Alert Orientation: Yes Intact, Yes Orientated to Time, Yes Orientated to Place, Yes Orientated to Person - Impulse Control Impulse Control: Tenuous - Insight and Judgement Insight and Judgement: Poor - Group Participation Particating in Group Activities: No - Medication Management Medication Management Adherence: Yes Assessment - Assessment Merits Inpatient Hospitalization: For Stabilization, Pending Safe DC Plan Inpatient DSM-IV Dx: schizoaffective d/o; borderline personality d/o. UTI; HTN ; hypercholesteremia; COPD Plan - Plan Treatment Plan: Name: VARUN GARCIA Birthdate: 1965 [id number] No improvement of mental status yet and unsafe for discharge. Continued Medication Management: Continue Outpt Medication Medications: Current Medications Acetaminophen (Tylenol Tab*) 650 mg PO Q4H PRN PRN Reason: PAIN or TEMP > 101 F Aclidinium [place] (Tudorza Press Mdi(Nf)) 1 puff INH BID [facility] Al Hydrox/Mg Hydrox/Simethicone (Maalox Plus*) 30 ml PO Q4H PRN PRN Reason: INDIGESTION Albuterol (Ventolin Hfa Inhaler*) 2 puff INH Q4H [facility] Last Admin: 11/15/17 12:22 Dose: 2 puff Amoxicillin (Amoxicillin Po (*)) 500 mg PO BID [facility] Last Admin: 11/15/17 10:14 Dose: 500 mg Atorvastatin Calcium (Lipitor*) 10 mg PO DAILY [facility] Last Admin: 11/15/17 10:14 Dose: 10 mg Buspirone HCl (Buspar Tab*) 30 mg PO BID [facility] Last Admin: 11/15/17 10:14 Dose: 30 mg Clozapine (Clozapine Tab*) 100 mg PO QAM [facility] Last Admin: 11/15/17 10:13 Dose: 100 mg Device (Nicotine Mouth Piece*) 1 each INH .CARTRIDGE [facility] Last Admin: 11/11/17 08:52 Dose: 1 each Gabapentin (Neurontin Cap(*)) 600 mg PO BID [facility] Last Admin: 11/15/17 10:11 Dose: 600 mg Gabapentin (Neurontin Cap(*)) 1,200 mg PO DAILY@1400 [facility] Last Admin: 11/14/17 14:40 Dose: 1,200 mg Ibuprofen (Motrin Tab*) 400 mg PO Q8H PRN PRN Reason: PAIN Loperamide HCl (Imodium Cap*) 2 mg PO .SEE INSTRUCTIONS PRN PRN Reason: LOOSE STOOL Lorazepam (Ativan Tab(*)) 0.5 mg PO TID PRN PRN Reason: ANXIETY Last Admin: 11/15/17 10:20 Dose: 0.5 mg Meclizine HCl (Antivert Tab*) 12.5 mg PO Q8HR [facility] Last Admin: 11/15/17 06:06 Dose: 12.5 mg Mometasone Furoate/Formoterol Fumar (Dulera 200/5 Mdi*) 2 puff INH BID [facility] Last Admin: 11/15/17 10:13 Dose: 2 puff Multivitamins (Theragran Tab*) 1 tab PO DAILY [facility] Last Admin: 11/15/17 10:12 Dose: 1 tab Nicotine (Nicotine Inhaler*) 10 mg INH Q2H PRN PRN Reason: CRAVING Last Admin: 11/15/17 09:57 Dose: 10 mg Nicotine (Nicotine Patch 21 Mg/24 Hr*) 1 patch TRANSDERM DAILY [facility] Last Admin: 11/15/17 10:16 Dose: 1 patch Nicotine Polacrilex (Nicotine Gum*) 2 mg PO Q2H PRN PRN Reason: CRAVING Last Admin: 11/14/17 19:51 Dose: 2 mg Olanzapine (Zyprexa Tab*) 10 mg PO QAM [facility] Last Admin: 11/15/17 10:12 Dose: 10 mg Omeprazole (Prilosec Cap*) 20 mg PO DAILY@1700 [facility] Last Admin: 11/14/17 16:07 Dose: 20 mg [facility]ox[facility] (Paxil Tab*) [facility] Last Admin: 11/15/17 10:13 Dose: 10 mg Pharmacy Profile Note (Nicotine Patch Removal Note*) 1 note PATCH OFF 2100 [facility] Last Admin: 11/14/17 20:48 Dose: 1 note Pindolol (Pindolol(Nf)) [facility] Last Admin: 11/15/17 10:15 Dose: 5 mg Trazodone HCl (Desyrel Tab*) 100 mg PO BEDTIME [facility] Last Admin: 11/14/17 20:46 Dose: 100 mg Vitamin B Complex/Vitamin E (Complex B-100*) 1 tab PO DAILY [facility] Last Admin: 11/15/17 10:14 Dose: 1 tab Warfarin Sodium (Coumadin Tab(*)) 5 mg PO SuMoWeFrSa@1700 [facility] Last Admin: 11/14/17 16:08 Dose: 5 mg Warfarin Sodium (Coumadin Tab(*)) 7.5 mg PO TuTh@1700 [facility] Last Admin: 11/11/17 17:49 Dose: 7.5 mg - Discharge Plan Discharge Plan: Consider Longer Term Tx
[2017-11-15] MEDS: Gabapentin CAP(*) 400 MG PO SCH (14:04)
[2017-11-15] MEDS: Nicotine GUM* 2 MG PO PRN (15:51)
[2017-11-15] MEDS: Omeprazole CAP* 20 MG PO SCH (16:38)
[2017-11-15] MEDS: Warfarin TAB(*) 5 MG PO SCH (16:38)
[2017-11-15] MEDS: traZODone TAB* 100 MG PO SCH (20:36)
[2017-11-15] MEDS: Nicotine Patch Removal NOTE PATCH OFF SCH (20:40)
[2017-11-16] MEDS: Albuterol HFA INHALER* 8 gm MDI INH SCH ×6 (04:00→20:38)
[2017-11-16] MEDS: PTO: Aclidinium POWDER MDI(NF) INH SCH ×2 (10:39→20:40)
[2017-11-16] MEDS: busPIRone TAB* 30 MG PO SCH (10:40)
[2017-11-16] MEDS: Mometasone/Formoter 200/5 MDI INH SCH ×2 (10:40→20:40)
[2017-11-16] MEDS: Atorvastatin* 10 MG TAB PO SCH (10:40)
[2017-11-16] MEDS: OLANzapine TAB* 10 MG PO SCH (10:41)
[2017-11-16] MEDS: Gabapentin CAP(*) 300 MG PO SCH ×2 (10:41→20:31)
[2017-11-16] MEDS: CloZAPine TAB* 100 MG TAB PO SCH ×2 (10:42→20:30)
[2017-11-16] MEDS: Meclizine TAB* 12.5 MG PO SCH (10:42)
[2017-11-16] MEDS: PARoxetine HCL TAB* 10 MG PO SCH (10:42)
[2017-11-16] MEDS: Vitamin B Complex TAB PO SCH (10:43)
[2017-11-16] MEDS: Amoxicillin PO (*) 500 MG CAP PO SCH ×2 (10:43→20:30)
[2017-11-16] MEDS: PINDOLOL 10 MG PO SCH (10:43)
[2017-11-16] MEDS: Vitamin THERAPEUTIC TAB PO SCH (10:43)
[2017-11-16] MEDS: Nicotine PATCH 21 MG/24 HR* PATCH TRANSDERM SCH (10:44)
[2017-11-16] MEDS: Nicotine Inhaler* 10 MG AMP INH PRN ×4 (10:46→20:32)
[2017-11-16] MEDS ORDERED: Meclizine TAB* 12.5 MG PO PRN (13:32)
--- NOTE | 2017-11-16 13:33 | RAD ---
INDICATION: Dizziness and weakness. COMPARISON: There are no prior studies available for comparison. TECHNIQUE: Contiguous axial sections of the brain were obtained from the skull base to the vertex without contrast. FINDINGS: The ventricles, cisterns and sulci are within normal limits. No significant focal abnormality or mass effect is seen. There is no evidence for hemorrhage. No significant focal osseous abnormality is seen. The visualized portion of the paranasal sinuses and mastoid air cells appear clear. IMPRESSION: NO EVIDENCE FOR ACUTE INTRACRANIAL ABNORMALITY.
[2017-11-16] MEDS: Gabapentin CAP(*) 400 MG PO SCH (15:59)
[2017-11-16] MEDS: Nicotine GUM* 2 MG PO PRN (16:01)
--- NOTE | 2017-11-16 16:18 | PN ---
Subjective - Subjective Service Type: [id number] Hosp care 35 min high complexity Subjective: Belle reports continued depressed mood. She is tearful and states "I feel like a freak. I don't want to but I feel like I have to." Patient reports frustration about isolation, low energy and loneliness when at home. She agrees to obtain brain CT due to dizziness. She also agrees to taper down on buspirone and decrease potential serotonin effect with paroxetine. She was cooperative with prompts to complete ADLs when offered a shower chair. Will obtain PT consult to evaluate mobility and assess need for walker. Assessment - Assessment Inpatient DSM-IV Dx: schizoaffective d/o; borderline personality d/o. UTI; HTN ; hypercholesteremia; COPD Clinical Impression: 52yo white female with hx of schizoaffective d/o, severe trauma history, borderline personality d/o. Admitted voluntary due to increase in command hallucinations and SIB. Clozapine dose decreased in outpatient setting per her request. According to outpatient psychiatrist, she was asymptomatic at 600mg. Patient agrees to titrate dose in hospital setting. She merits hospitalization for immediate safety and stabilization. Plan - Plan Treatment Plan: Name: BELLE GARCIA Birthdate: 1965 [id number] continue acute intensive psychiatric treatment. Change olanzapine to hs to promote sleep hygiene; start taper of buspirone; obtain brain CT due to dizziness, weakness; obtain PT/INR and CBC in am. Request PT consult to evaluate mobility and assess need for walker. Continued Medication Management: Different Medication Medications: Current Medications Aclidinium [place] (Ronaldza Jacques Mdi(Nf)) 1 puff INH BID [facility] Last Admin: 11/16/17 10:39 Dose: 1 inh Al Hydrox/Mg Hydrox/Simethicone (Maalox Plus*) 30 ml PO Q4H PRN PRN Reason: INDIGESTION Albuterol (Ventolin Hfa Inhaler*) 2 puff INH Q4H [facility] Last Admin: 11/16/17 15:59 Dose: 2 puff Amoxicillin (Amoxicillin Po (*)) 500 mg PO BID [facility] Last Admin: 11/16/17 10:43 Dose: 500 mg Atorvastatin Calcium (Lipitor*) 10 mg PO DAILY [facility] Last Admin: 11/16/17 10:40 Dose: 10 mg Buspirone HCl (Buspar Tab *) 15 mg PO DAILY [facility] Clozapine (Clozapine Tab*) 100 mg PO QAM [facility] Last Admin: 11/16/17 10:42 Dose: 100 mg Clozapine (Clozapine Tab*) 400 mg PO BEDTIME [facility] Last Admin: 11/15/17 20:35 Dose: 400 mg Device (Nicotine Mouth Piece*) 1 each INH .CARTRIDGE [facility] Last Admin: 11/11/17 08:52 Dose: 1 each Gabapentin (Neurontin Cap(*)) 600 mg PO BID [facility] Last Admin: 11/16/17 10:41 Dose: 600 mg Gabapentin (Neurontin Cap(*)) 1,200 mg PO DAILY@1400 [facility] Last Admin: 11/16/17 15:59 Dose: 1,200 mg Ibuprofen (Motrin Tab*) 400 mg PO Q8H PRN PRN Reason: PAIN Loperamide HCl (Imodium Cap*) 2 mg PO .SEE INSTRUCTIONS PRN PRN Reason: LOOSE STOOL Lorazepam (Ativan Tab(*)) 0.5 mg PO TID PRN PRN Reason: ANXIETY Last Admin: 11/15/17 10:20 Dose: 0.5 mg Meclizine HCl (Antivert Tab*) 12.5 mg PO Q8HR PRN PRN Reason: DIZZINESS Mometasone Furoate/Formoterol Fumar (Dulera 200/5 Mdi*) 2 puff INH BID [facility] Last Admin: 11/16/17 10:40 Dose: 2 puff Multivitamins (Theragran Tab*) 1 tab PO DAILY [facility] Last Admin: 11/16/17 10:43 Dose: 1 tab Nicotine (Nicotine Inhaler*) 10 mg INH Q2H PRN PRN Reason: CRAVING Last Admin: 11/16/17 16:01 Dose: 10 mg Nicotine (Nicotine Patch 21 Mg/24 Hr*) 1 patch TRANSDERM DAILY [facility] Last Admin: 11/16/17 10:44 Dose: 1 patch Nicotine Polacrilex (Nicotine Gum*) 2 mg PO Q2H PRN PRN Reason: CRAVING Last Admin: 11/16/17 16:01 Dose: 2 mg Olanzapine (Zyprexa Tab*) 10 mg PO BEDTIME [facility] Omeprazole (Prilosec Cap*) 20 mg PO DAILY@1700 [facility] Last Admin: 11/15/17 16:38 Dose: 20 mg Paroxetine HCl (Paxil Tab*) 10 mg PO QAM [facility] Last Admin: 11/16/17 10:42 Dose: 10 mg Pharmacy Profile Note (Nicotine Patch Removal Note*) 1 note PATCH OFF 2099 [facility] Last Admin: 11/15/17 20:40 Dose: 1 note Pindolol (Pindolol(Nf)) 5 mg PO QAM [facility] Last Admin: 11/16/17 10:43 Dose: 5 mg Trazodone HCl (Desyrel Tab*) 100 mg PO BEDTIME [facility] Last Admin: 11/15/17 20:36 Dose: 100 mg Vitamin B Complex/Vitamin E (Complex B-100*) 1 tab PO DAILY [facility] Last Admin: 11/16/17 10:43 Dose: 1 tab Warfarin Sodium (Coumadin Tab(*)) 5 mg PO SuMoWeFrSa@1700 [facility] Last Admin: 11/15/17 16:38 Dose: 5 mg Warfarin Sodium (Coumadin Tab(*)) 7.5 mg PO TuTh@1700 [facility] Last Admin: 11/11/17 17:49 Dose: 7.5 mg - Discharge Plan Discharge Plan: Outpatient Follow Up Outpatient Program: [facility]
[2017-11-16] MEDS: Omeprazole CAP* 20 MG PO SCH (16:57)
[2017-11-16] MEDS: Warfarin TAB(*) 7.5 MG PO SCH (16:57)
[2017-11-16] MEDS: Ibuprofen TAB* 400 MG PO PRN (18:35)
[2017-11-16] MEDS: traZODone TAB* 100 MG PO SCH (20:31)
[2017-11-16] MEDS: Nicotine Patch Removal NOTE PATCH OFF SCH (20:37)
[2017-11-17] MEDS: Albuterol HFA INHALER* 8 gm MDI INH SCH ×6 (04:00→20:01)
[2017-11-17 08:58] LABS: ABS Basophils 0 10^3/ul (0-0.2); ABS Eosinophils 0 10^3/ul (0-0.6); ABS Lymphocytes 1.8 10^3/ul (1.0-4.8); ABS Monocytes 0.5 10^3/ul (0-0.8); ABS Neutrophils 3.7 10^3/ul (1.5-7.7); ABS Nucleated RBC 0 10^3/ul; Eosinophil % 0.1 % (0-6); Hematocrit 45 % (35-47); Hemoglobin 14.8 g/dl (12.0-16.0); Lymphocyte % 29.7 % (25-47); Mean Corpuscular HGB Conc 33 g/dl (31-36); Mean Corpuscular Hemoglobin 29 pg (27-31); Mean Corpuscular Volume 87 fL (80-97); Mean Platelet Volume 9 um3 (7.4-10.4); Nucleated Red Blood Cells % 0; Platelet Count 160 10^3/ul (150-450); Red Blood Count 5.13 10^6/ul (4.0-5.4); Red Cell Distribution Width 16 % (10.5-15)
[2017-11-17] MEDS ORDERED: busPIRone TAB* 15 MG PO SCH (09:00)
[2017-11-17] MEDS: Mometasone/Formoter 200/5 MDI INH SCH ×2 (09:00→20:00)
[2017-11-17 09:01] LABS: INR 2.62 (0.77-1.02)
[2017-11-17] MEDS: PTO: Aclidinium POWDER MDI(NF) INH SCH ×2 (09:01→20:00)
[2017-11-17] MEDS: Nicotine PATCH 21 MG/24 HR* PATCH TRANSDERM SCH (09:02)
[2017-11-17] MEDS: Gabapentin CAP(*) 300 MG PO SCH ×2 (09:03→19:57)
[2017-11-17] MEDS: PINDOLOL 10 MG PO SCH (09:04)
[2017-11-17] MEDS: CloZAPine TAB* 100 MG TAB PO SCH ×2 (09:04→19:57)
[2017-11-17] MEDS: Vitamin B Complex TAB PO SCH (09:04)
[2017-11-17] MEDS: Atorvastatin* 10 MG TAB PO SCH (09:05)
[2017-11-17] MEDS: PARoxetine HCL TAB* 10 MG PO SCH (09:05)
[2017-11-17] MEDS: Amoxicillin PO (*) 500 MG CAP PO SCH ×2 (09:05→19:56)
[2017-11-17] MEDS: Vitamin THERAPEUTIC TAB PO SCH (09:05)
[2017-11-17] MEDS: Nicotine Inhaler* 10 MG AMP INH PRN ×4 (09:30→20:05)
[2017-11-17] MEDS: LORazepam TAB(*) 0.5 MG PO PRN ×2 (10:14→19:01)
[2017-11-17] MEDS ORDERED: DULoxetine DR CAP* 20 MG CAP.DR PO ONE (10:45)
--- NOTE | 2017-11-17 12:33 | PN ---
Subjective - Subjective Service Type: 86786 Hosp care 35 min high complexity Subjective: Patient ambulating with walker, c/o weakness and inability to stand on her own. According to staff, patient declined PT consult yesterday. Patient agrees to consult today. Patient continues to endorse depressed mood, passive wish and AH. She denies SIB. She reports being in milieu is a helpful distraction from command AH. She reports lower back pain. We discuss use of duloxetine in place of paroxetine and buspirone to better target mood/anxiety along with benefit of pain relief. She reports increase in drooling with clozapine titration. Patient notified of CT scan and INR results. She reports that her son encouraged her to use hemp oil at home, which may have affected efficacy of warfarin. Patient awaiting PT consult and neuro consult. Manager Auto received message from her VNS nurse, Brooklynn Kc. Returned call, awaiting call back. Objective - Appearance Appearance: Obese Dysmorphic Features: Yes Hygiene: Normal Grooming: Fairly Well Kept - Behavior Psychomotor Activities: Abnormal-Increased Exhibits Abnormal Movement: Yes - Attitude and Relatedness Attitude and Relatedness: Cooperative Eye Contact: Good - Speech Quality: Unpressured Latencies: Normal Quantity: Appropriate - Mood Patient's Decription of Mood: "Okay" - Affect Observed Affect: Depressed Affect Consistent with: Dysphoria - Thought Process Patient's Thought Process: Coherent, Goal Directed Thought Content: Yes Passive Wish, No Suicidal Planning, No Homicidal Ideation, No Paranoid Ideation - Sensorium Experiencing Hallucinations: Yes Type of Hallucinations: Visual: No, Auditory: Yes, Command: Yes - Level of Consciousness Level of Consciousness: Alert - Impulse Control Impulse Control: Tenuous - Insight and Judgement Insight and Judgement: Good - Group Participation Particating in Group Activities: Yes - Medication Management Medication Management Adherence: Yes Assessment - Assessment Merits Inpatient Hospitalization: For Immediate Safety, For Stabilization, To Initiate Treatment, Consolidate Improvements, Pending Safe DC Plan Inpatient DSM-IV Dx: schizoaffective d/o; borderline personality d/o. UTI; HTN ; hypercholesteremia; COPD Clinical Impression: 52yo white female with hx of schizoaffective d/o, severe trauma history, borderline personality d/o. Admitted voluntary due to increase in command hallucinations and SIB. Clozapine dose decreased in outpatient setting per her request. According to outpatient psychiatrist, she was asymptomatic at 600mg. Patient agrees to titrate dose in hospital setting. She merits hospitalization for immediate safety and stabilization. Plan - Plan Treatment Plan: Name: VARUN GARCIA Birthdate: 1965 [id number] continue acute intensive psychiatric treatment. DC paxil and buspirone; start duloxetine. Increase trazodone per patient request. Neuro consult requested. Awaiting PT consult to evaluate mobility and assess need for walker. Continued Medication Management: Different Medication Medications: Current Medications Aclidinium [place] (Tudorza Pressair Mdi(Nf)) 1 puff INH BID [facility] Last Admin: 11/17/17 09:01 Dose: 1 inh Al Hydrox/Mg Hydrox/Simethicone (Maalox Plus*) 30 ml PO Q4H PRN PRN Reason: INDIGESTION Albuterol (Ventolin Hfa Inhaler*) 2 puff INH Q4H [facility] Last Admin: 11/17/17 11:52 Dose: 2 puff Amoxicillin (Amoxicillin Po (*)) 500 mg PO BID [facility] Last Admin: 11/17/17 09:05 Dose: 500 mg Atorvastatin Calcium (Lipitor*) 10 mg PO DAILY [facility] Last Admin: 11/17/17 09:05 Dose: 10 mg Clozapine (Clozapine Tab*) 100 mg PO QAM [facility] Last Admin: 11/17/17 09:04 Dose: 100 mg Clozapine (Clozapine Tab*) 400 mg PO BEDTIME [facility] Last Admin: 11/16/17 20:30 Dose: 400 mg Device (Nicotine Mouth Piece*) 1 each INH .[facility] Last Admin: 11/11/17 08:52 Dose: 1 each Duloxetine HCl (Cymbalta Cap*) 30 mg PO BID [facility] Gabapentin (Neurontin Cap(*)) 600 mg PO BID [facility] Last Admin: 11/17/17 09:03 Dose: 600 mg Gabapentin (Neurontin Cap(*)) 1,200 mg PO DAILY@1400 [facility] Last Admin: 11/16/17 15:59 Dose: 1,200 mg Ibuprofen (Motrin Tab*) 400 mg PO Q8H PRN PRN Reason: PAIN Last Admin: 11/16/17 18:35 Dose: 400 mg Loperamide HCl (Imodium Cap*) 2 mg PO .SEE INSTRUCTIONS PRN PRN Reason: LOOSE STOOL Lorazepam (Ativan Tab(*)) 0.5 mg PO TID PRN PRN Reason: ANXIETY Last Admin: 11/17/17 10:14 Dose: 0.5 mg Meclizine HCl (Antivert Tab*) 12.5 mg PO Q8HR PRN PRN Reason: DIZZINESS Mometasone Furoate/Formoterol Fumar (Dulera 200/5 Mdi*) 2 puff INH BID [facility] Last Admin: 11/17/17 09:00 Dose: 2 puff Multivitamins (Theragran Tab*) 1 tab PO DAILY [facility] Last Admin: 11/17/17 09:05 Dose: 1 tab Nicotine (Nicotine Inhaler*) 10 mg INH Q2H PRN PRN Reason: CRAVING Last Admin: 11/17/17 12:20 Dose: 10 mg Nicotine (Nicotine Patch 21 Mg/24 Hr*) 1 patch TRANSDERM DAILY [facility] Last Admin: 11/17/17 09:02 Dose: 1 patch Nicotine Polacrilex (Nicotine Gum*) 2 mg PO Q2H PRN PRN Reason: CRAVING Last Admin: 11/16/17 16:01 Dose: 2 mg Olanzapine (Zyprexa Tab*) 10 mg PO BEDTIME [facility] Omeprazole (Prilosec Cap*) 20 mg PO DAILY@1700 [facility] Last Admin: 11/16/17 16:57 Dose: 20 mg Pharmacy Profile Note (Nicotine Patch Removal Note*) 1 note PATCH OFF 2100 [facility] Last Admin: 11/16/17 20:37 Dose: 1 note Pindolol (Pindolol(Nf)) 5 mg PO QAM [facility] Last Admin: 11/17/17 09:04 Dose: 5 mg Trazodone HCl (Desyrel Tab*) 200 mg PO BEDTIME [facility] Vitamin B Complex/Vitamin E (Complex B-100*) 1 tab PO DAILY [facility] Last Admin: 11/17/17 09:04 Dose: 1 tab Warfarin Sodium (Coumadin Tab(*)) 5 mg PO SuMoWeFrSa@1700 [facility] Last Admin: 11/15/17 16:38 Dose: 5 mg Warfarin Sodium (Coumadin Tab(*)) 7.5 mg PO TuTh@1700 [facility] Last Admin: 11/16/17 16:57 Dose: 7.5 mg - Discharge Plan Discharge Plan: Outpatient Follow Up Outpatient Program: [facility]
[2017-11-17] MEDS: Gabapentin CAP(*) 400 MG PO SCH (13:09)
[2017-11-17] MEDS: Nicotine GUM* 2 MG PO PRN (16:10)
[2017-11-17] MEDS: Omeprazole CAP* 20 MG PO SCH (17:18)
[2017-11-17] MEDS: Warfarin TAB(*) 5 MG PO SCH (17:19)
[2017-11-17] MEDS: traZODone TAB* 100 MG PO SCH (19:58)
[2017-11-17] MEDS: OLANzapine TAB* 10 MG PO SCH (19:58)
[2017-11-17] MEDS: Nicotine Patch Removal NOTE PATCH OFF SCH (20:04)
--- NOTE | 2017-11-18 00:31 | CONS ---
NEUROLOGY CONSULTATION: DATE OF CONSULT: 11/17/17 The patient is on the behavioral health unit. REQUESTING PHYSICIAN: Brooklynn Ho NP REASON FOR CONSULT: Weakness, dizziness, gait unsteadiness. 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 As an outpatient, her clozapine was being reduced secondary to her feeling that it was causing her physical symptoms. As a result, she had an increase in command , auditory hallucinations telling her to harm herself and kill herself, and as a result, she has been burning herself with cigarettes. She presented voluntarily for mental health evaluation and was admitted at that time. Apparently over the past 10 months or so, she has been consistently reporting symptoms including dizziness, shakiness, and generalized weakness. She denies any major changes in her medications around the time that these symptoms began. In terms of her shakiness, she says this is in her arms and her legs and it helps if she lays down, but if she is sitting or standing she feels generally shaky. In addition, she feels weak overall, but denies any focal weakness. She gets dizzy frequently and there is somewhat of a sense of motion with this, but she also describes a more nonspecific sensation of dizziness where she feels she might lose her balance. She denies any sense of lightheadedness or as though she is going to pass out. She denies any consistent falling in any particular direction. She also says that she is frequently nauseated, but does not vomit. She endorses a 10-pound weight loss in the past 2 weeks which she attributes to eating less. She indicates that Dr. Cheung told her that she should be evaluated by Neurology, but she did not do so because she did not feel well enough to go. She has had a couple of documented falls since she has been on the behavioral health unit and Neurology consultation was requested to evaluate these chronic symptoms. She denies any extremity numbness or tingling. She endorses blurry vision, but attributes this to cataracts and denies any diplopia or vision loss. She denies any dysphagia. She denies headaches. She has longstanding back pain, which radiates into her hips, but is not radiating into her buttocks or down her legs. She is treated with multiple psychiatric medications including clozapine, buspirone, trazodone, olanzapine and paroxetine. She is also on gabapentin. PAST MEDICAL HISTORY: 1. Schizoaffective disorder with a history of many psychiatric hospitalization since age 18 as well as self-injurious behavior and multiple suicide attempts via overdose. 2. Tachycardia. 3. Atrial fibrillation. 4. PEs and DVTs with a reported history of positive lupus anticoagulants. 5. Asthma and COPD. 6. Lung cancer status post partial right lobectomy in 2006. 7. Tardive dyskinesia is documented. 8. GERD. 9. Obesity. 10. Thyroid disease. 11. Hyperlipidemia. 12. Back pain with a reported history of disk herniation. PAST SURGICAL HISTORY: Includes the lung surgery as well as back surgery. HOME MEDICATIONS: 1. Aclidinium bromide 1 puff b.i.d. 2. Albuterol q.4 hours as needed. 3. Lipitor 10 mg daily. 4. Buspirone 30 mg twice daily. 5. Clozapine 100 mg in the morning. 6. Clozapine 300 mg at night. 7. Gabapentin 600 mg in the morning and at bedtime as well as 1200 mg daily at 2 p.m. 8. Ibuprofen 400 mg q.8 hours p.r.n. pain. 9. Imodium 2 mg p.r.n. loose stools. 10. Lorazepam 0.5 mg daily. 11. Dulera 200/5 two puffs b.i.d. 12. Multivitamin. 13. Olanzapine 10 mg q.a.m. 14. Omeprazole 20 mg daily. 15. Paroxetine 10 mg daily. 16. Timolol 5 mg daily. 17. Trazodone 100 mg at bedtime. 18. Vitamin B complex. 19. Vitamin E. 20. Coumadin 7.5 mg on Tuesdays and and 5 mg on other days of the week. ALLERGIES: LATUDA causes facial edema. FAMILY HISTORY: The patient denies any history of neurologic disease in the family. There is a family history of psychiatric illness including depression, psychosis and drug abuse. SOCIAL HISTORY: She is . She is a longstanding heavy smoker of a pack and a half per day. She denies any alcohol or drug use. REVIEW OF SYSTEMS: As per the HPI, otherwise negative. PHYSICAL EXAM: Vital Signs: Temperature, she is afebrile. Blood pressure measured last night at 2030 was 104/55 with a heart rate of 91 and an oxygen saturation of 97%. On general examination, Mrs. Jean Baptiste was initially sleeping on her right side when I entered the room on the behavioral health unit with the nurse. She awoke after we called her name several times. She turned on to her left side and was covered by a blanket for the initial portion of my evaluation. She had frequent restless movements of her feet and tardive movements of her mouth. Her heart is in a regular rate and rhythm with no obvious murmurs. Her lungs show coarse breath sounds bilaterally and wheezing. She has some scabs evident over her extremities. She reports her mood to be down. She was cooperative with the examiner. On neurologic examination, she is fully awake, alert, and oriented. Her speech was fluent without dysarthria or aphasia. She is edentulous. When she sat up for the physical exam, she began to exhibit large amplitude irregular movements of her trunk, her head, as well as her upper and lower extremities. These movements were distractible in that when she turned around to get something off of the window sill next to her bed, the movement ceased. In addition with certain maneuvers of the neurologic exam including testing coordination, the movements also calmed down significantly. These movements were not evident when she was laying on her side. Her pupils appeared equal, round, and reactive to light, but it was impossible to visualize her fundi and to really accurately assess her pupils because of her constant head movements. Her versions were full without nystagmus. Barrett were full to confrontation with no extinction to double simultaneous stimulation. Facial sensation is intact bilaterally to light touch. Facial musculature is full and symmetric. Hearing is intact to finger rub. Palate elevates symmetrically and the tongue is midline. Shoulder shrug was full and symmetric. Despite her nearly constant movements, her upper extremity tone was normal. Manual muscle testing was difficult secondary to diffuse give away weakness, but there was no clear lateralized weakness. There was no pronator drift. She continued to have the irregular large amplitude movements of her arms when they were outstretched as well as when they rested by her sides. Her sensation was intact to light touch in the upper and lower extremities. Reflexes were 2+ in the upper extremities and knees, but difficult to illicit at the ankles secondary to continuous movements of her feet. There was no ataxia on finger to nose testing. I did not ambulate her secondary to the recent reports of falls and indications in the chart that she is a 2-person assist and the patient's desire to be done with the physical exam by the end of the neurologic exam. DIAGNOSTIC STUDIES/LAB DATA: She had chemistry panel done on her admission which was overall unremarkable showing just a slightly elevated alkaline phosphatase of 105 and glucose of 113, which was nonfasting. Her liver functions otherwise were normal, renal function was normal, sodium was normal. TSH was 5.43. Hemoglobin A1c was elevated at 6.7%. CBC was checked this morning and was unremarkable aside from the slightly elevated RDW of 16. INR today is 2.62. Her urinalysis on admission was positive for nitrites, 1+ leukocyte esterase, 3+ wbc's, and 1+ bacteria and has grown out E. coli as well as normal maría. She was started on an antibiotic for this. Her toxicology screen was negative. She had a brain CT yesterday done without contrast which I personally reviewed and showed no evidence of an acute intracranial abnormality. She also had a chest x-ray on 10/25/17, which showed hyperinflation and otherwise no active cardiopulmonary disease. IMPRESSION: Belle Jean Baptiste is a 52-year-old woman with chronic schizoaffective disorder, on multiple psychiatric medications including clozapine, olanzapine, paroxetine, buspirone, and trazodone who has had nearly a years worth of nonspecific symptoms including weakness, shakiness, and dizziness. Much of her exam today with her abnormal movements as well as her apparent weakness appears to be functional in nature, but it is difficult to determine whether there could be some additional underlying organic problem here as well. I think it is possible that the combination of her medications could be causing at least some of these symptoms with multiple serotonergic medications as well as dopamine blocking agents. She does appear to have some tardive dyskinesia on her exam and efforts are being made by the psychiatry team to somewhat simplify her medication regimen, discontinuing Buspar and paroxetine and starting Cymbalta. It does sound as though she is dependent on clozapine at this point from a psychiatric standpoint. It is not clear that this is causing her symptoms. I suggest checking orthostatic vital signs given her complaints of nonspecific dizziness and weakness as well as her falls that she has had recently. I discussed with her whether she would be able to undergo an MRI scan of the brain or not and she says that she is significantly claustrophobic and does not think that she will be able to do so even with sedation with administration of benzodiazepines. Given her history of lung cancer, even though this is somewhat remote and I am not sure what the pathology was, I think we should check a serum paraneoplastic panel as well as other labs including vitamin B12, vitamin D, and ammonia level. I have entered those labs and the patient was agreeable to having some blood work done. If providers that she is more trusting of could continue to discuss with her whether she would be able to undergo MRI scan of the brain, as mentioned this would be helpful in helping to further evaluate whether there is any underlying organic component to her symptoms. I will follow up as her testing comes back. [id number]/[facility] #: [id number] JULIANA
[2017-11-18] MEDS: Albuterol HFA INHALER* 8 gm MDI INH SCH ×6 (02:23→20:34)
[2017-11-18] MEDS ORDERED: DULoxetine DR CAP* 30 MG CAP.DR PO SCH (09:00)
[2017-11-18] MEDS: Gabapentin CAP(*) 300 MG PO SCH ×2 (09:28→20:41)
[2017-11-18] MEDS: Vitamin B Complex TAB PO SCH (09:28)
[2017-11-18] MEDS: Atorvastatin* 10 MG TAB PO SCH (09:28)
[2017-11-18] MEDS: Vitamin THERAPEUTIC TAB PO SCH (09:28)
[2017-11-18] MEDS: CloZAPine TAB* 100 MG TAB PO SCH ×2 (09:29→20:43)
[2017-11-18] MEDS: PINDOLOL 10 MG PO SCH (09:29)
[2017-11-18] MEDS: Amoxicillin PO (*) 500 MG CAP PO SCH ×2 (09:29→20:40)
[2017-11-18] MEDS: Mometasone/Formoter 200/5 MDI INH SCH ×2 (09:32→20:36)
[2017-11-18] MEDS: PTO: Aclidinium POWDER MDI(NF) INH SCH ×2 (09:34→20:34)
[2017-11-18] MEDS: Nicotine PATCH 21 MG/24 HR* PATCH TRANSDERM SCH (10:42)
[2017-11-18] MEDS: Nicotine Inhaler* 10 MG AMP INH PRN ×5 (10:46→20:40)
[2017-11-18] MEDS: LORazepam TAB(*) 0.5 MG PO PRN (12:44)
[2017-11-18] MEDS: Nicotine GUM* 2 MG PO PRN ×2 (12:45→14:59)
[2017-11-18] MEDS: Gabapentin CAP(*) 400 MG PO SCH (14:24)
[2017-11-18] MEDS ORDERED: Mouth Piece, Nicotine* 1 EACH CARTRIDGE ONE (17:21)
[2017-11-18] MEDS: Omeprazole CAP* 20 MG PO SCH (18:28)
[2017-11-18] MEDS: Warfarin TAB(*) 7.5 MG PO SCH (18:28)
[2017-11-18] MEDS: OLANzapine TAB* 10 MG PO SCH (20:41)
[2017-11-18] MEDS: traZODone TAB* 100 MG PO SCH (20:41)
[2017-11-18] MEDS: Nicotine Patch Removal NOTE PATCH OFF SCH (20:48)
[2017-11-19] MEDS: Albuterol HFA INHALER* 8 gm MDI INH SCH ×5 (00:05→21:55)
[2017-11-19] MEDS: Vitamin THERAPEUTIC TAB PO SCH (08:43)
[2017-11-19] MEDS: Atorvastatin* 10 MG TAB PO SCH (08:43)
[2017-11-19] MEDS: DULoxetine DR CAP* 30 MG CAP.DR PO SCH (08:43)
[2017-11-19] MEDS: CloZAPine TAB* 100 MG TAB PO SCH ×2 (08:44→22:40)
[2017-11-19] MEDS: PTO: Aclidinium POWDER MDI(NF) INH SCH ×2 (08:44→22:16)
[2017-11-19] MEDS: Amoxicillin PO (*) 500 MG CAP PO SCH ×2 (08:44→22:09)
[2017-11-19] MEDS: Mometasone/Formoter 200/5 MDI INH SCH ×2 (08:45→22:17)
[2017-11-19] MEDS: PINDOLOL 10 MG PO SCH (08:45)
[2017-11-19] MEDS: Nicotine PATCH 21 MG/24 HR* PATCH TRANSDERM SCH (08:47)
[2017-11-19] MEDS: Gabapentin CAP(*) 300 MG PO SCH ×2 (08:48→22:08)
[2017-11-19] MEDS: Nicotine Inhaler* 10 MG AMP INH PRN ×5 (09:01→22:11)
[2017-11-19] MEDS: Vitamin B Complex TAB PO SCH (09:23)
[2017-11-19] MEDS: Gabapentin CAP(*) 400 MG PO SCH (14:17)
--- NOTE | 2017-11-19 15:20 | PN ---
Subjective - Subjective Service Type: 69186 Hosp care 15 min low complexity Subjective: Patient reports feeling "depressed" and "discouraged." She expresses frustration that she was discharged from [facility]. She endorses AH telling her to punish herself because "everyone is giving up on you." She reports thinking God is punishing her and wants her to . She states she is going to stop taking warfarin because voices are telling her to let God decide if she has blood clots. She goes on to describe a "pandora's box" within her and fear of exposing her thoughts and feelings. She reports an idea that she must open it but is "running out of time" [before she dies]. Patient also reports desire to be more functioning but also is easily overwhelmed. This turns to guilt and urges to harm herself. Objective - Appearance Appearance: Obese Dysmorphic Features: Yes Hygiene: Normal Grooming: Fairly Well Kept - Behavior Psychomotor Activities: Abnormal-Increased Exhibits Abnormal Movement: Yes - Attitude and Relatedness Attitude and Relatedness: Cooperative Eye Contact: Good - Speech Quality: Unpressured Latencies: Normal Quantity: Appropriate - Mood Patient's Decription of Mood: "discouraged" - Affect Observed Affect: Depressed Affect Consistent with: Dysphoria - Thought Process Patient's Thought Process: Coherent Thought Content: Yes Passive Wish, Yes Paranoid Ideation, No Suicidal Planning, No Homicidal Ideation - Sensorium Experiencing Hallucinations: Yes Type of Hallucinations: Auditory: Yes, Command: Yes - Level of Consciousness Level of Consciousness: Alert Orientation: Yes Intact, Yes Orientated to Time, Yes Orientated to Place, Yes Orientated to Person - Impulse Control Impulse Control: Tenuous - Insight and Judgement Insight and Judgement: Fair - Group Participation Particating in Group Activities: No - Medication Management Medication Management Adherence: Yes Assessment - Assessment Merits Inpatient Hospitalization: For Immediate Safety, For Stabilization, For Discharge Planning Inpatient DSM-IV Dx: schizoaffective d/o; borderline personality d/o. UTI; HTN ; hypercholesteremia; COPD Clinical Impression: 52yo white female with hx of schizoaffective d/o, severe trauma history, borderline personality d/o. Admitted voluntary due to increase in command hallucinations and SIB. Clozapine dose decreased in outpatient setting per her request. According to outpatient psychiatrist, she was asymptomatic at 600mg. Patient agrees to titrate dose in hospital setting. She merits hospitalization for immediate safety and stabilization. Plan - Plan Treatment Plan: Name: VARUN GARCIA Birthdate: 1965 [id number] continue acute intensive psychiatric treatment. titrate clozapine and increase duloxetine. add cogentin for EPS. Continued Medication Management: Different Medication Medications: Current Medications Aclidinium [place] (Tudorza Pressair Mdi(Nf)) 1 puff INH BID [facility] Last Admin: 11/19/17 08:44 Dose: 1 inh Al Hydrox/Mg Hydrox/Simethicone (Maalox Plus*) 30 ml PO Q4H PRN PRN Reason: INDIGESTION Albuterol (Ventolin Hfa Inhaler*) 2 puff INH Q4H [facility] Last Admin: 11/19/17 14:16 Dose: 2 puff Amoxicillin (Amoxicillin Po (*)) 500 mg PO BID [facility] Last Admin: 11/19/17 08:44 Dose: 500 mg Atorvastatin Calcium (Lipitor*) 10 mg PO DAILY [facility] Last Admin: 11/19/17 08:43 Dose: 10 mg Clozapine (Clozapine Tab*) 100 mg PO QAM [facility] Last Admin: 11/19/17 08:44 Dose: 100 mg Clozapine (Clozapine Tab*) 450 mg PO BEDTIME [facility] Last Admin: 11/18/17 20:43 Dose: 400 mg Device (Nicotine Mouth Piece*) 1 each INH .[facility] Last Admin: 11/11/17 08:52 Dose: 1 each Duloxetine HCl (Cymbalta Cap*) 60 mg PO DAILY [facility] Last Admin: 11/19/17 08:43 Dose: 60 mg Gabapentin (Neurontin Cap(*)) 600 mg PO BID [facility] Last Admin: 11/19/17 08:48 Dose: 600 mg Gabapentin (Neurontin Cap(*)) 1,200 mg PO DAILY@1400 [facility] Last Admin: 11/19/17 14:17 Dose: 1,200 mg Ibuprofen (Motrin Tab*) 400 mg PO Q8H PRN PRN Reason: PAIN Last Admin: 11/16/17 18:35 Dose: 400 mg Loperamide HCl (Imodium Cap*) 2 mg PO .SEE INSTRUCTIONS PRN PRN Reason: LOOSE STOOL Lorazepam (Ativan Tab(*)) 0.5 mg PO TID PRN PRN Reason: ANXIETY Last Admin: 11/18/17 12:44 Dose: 0.5 mg Meclizine HCl (Antivert Tab*) 12.5 mg PO Q8HR PRN PRN Reason: DIZZINESS Mometasone Furoate/Formoterol Fumar (Dulera 200/5 Mdi*) 2 puff INH BID [facility] Last Admin: 11/19/17 08:45 Dose: 2 puff Multivitamins (Theragran Tab*) 1 tab PO DAILY [facility] Last Admin: 11/19/17 08:43 Dose: 1 tab Nicotine (Nicotine Inhaler*) 10 mg INH Q2H PRN PRN Reason: CRAVING Last Admin: 11/19/17 12:52 Dose: 10 mg Nicotine (Nicotine Patch 21 Mg/24 Hr*) 1 patch TRANSDERM DAILY [facility] Last Admin: 11/19/17 08:47 Dose: 1 patch Nicotine Polacrilex (Nicotine Gum*) 2 mg PO Q2H PRN PRN Reason: CRAVING Last Admin: 11/18/17 14:59 Dose: 2 mg Olanzapine (Zyprexa Tab*) 5 mg PO BEDTIME [facility] Last Admin: 11/18/17 20:41 Dose: 10 mg Omeprazole (Prilosec Cap*) 20 mg PO DAILY@1700 [facility] Last Admin: 11/18/17 18:28 Dose: Not Given Pharmacy Profile Note (Nicotine Patch Removal Note*) 1 note PATCH OFF 2100 [facility] Last Admin: 11/18/17 20:48 Dose: 1 note Pindolol (Pindolol(Nf)) 5 mg PO QAM [facility] Last Admin: 11/19/17 08:45 Dose: 5 mg Trazodone HCl (Desyrel Tab*) 200 mg PO BEDTIME [facility] Last Admin: 11/18/17 20:41 Dose: 200 mg Vitamin B Complex/Vitamin E (Complex B-100*) 1 tab PO DAILY [facility] Last Admin: 11/19/17 09:23 Dose: 1 tab Warfarin Sodium (Coumadin Tab(*)) 5 mg PO SuMoWeFrSa@1700 [facility] Last Admin: 11/17/17 17:19 Dose: 5 mg Warfarin Sodium (Coumadin Tab(*)) 7.5 mg PO TuTh@1700 [facility] Last Admin: 11/18/17 18:28 Dose: Not Given add benztropine 1mg BID - Discharge Plan Discharge Plan: Outpatient Follow Up Outpatient Program: [facility]
[2017-11-19] MEDS: Benztropine TAB* 1 MG PO SCH ×2 (16:20→22:07)
[2017-11-19] MEDS: Nicotine GUM* 2 MG PO PRN (16:25)
[2017-11-19] MEDS: Warfarin TAB(*) 5 MG PO SCH (17:00)
[2017-11-19] MEDS: Omeprazole CAP* 20 MG PO SCH (17:01)
[2017-11-19] MEDS: OLANzapine TAB* 10 MG PO SCH (22:07)
[2017-11-19] MEDS: traZODone TAB* 100 MG PO SCH (22:09)
[2017-11-19] MEDS: Nicotine Patch Removal NOTE PATCH OFF SCH (22:11)
[2017-11-20] MEDS: Albuterol HFA INHALER* 8 gm MDI INH SCH ×5 (09:24→20:56)
[2017-11-20] MEDS: Nicotine PATCH 21 MG/24 HR* PATCH TRANSDERM SCH (09:30)
[2017-11-20] MEDS: DULoxetine DR CAP* 30 MG CAP.DR PO SCH (09:32)
[2017-11-20] MEDS: Atorvastatin* 10 MG TAB PO SCH (09:32)
[2017-11-20] MEDS: Vitamin B Complex TAB PO SCH (09:32)
[2017-11-20] MEDS: Benztropine TAB* 1 MG PO SCH ×2 (09:33→20:59)
[2017-11-20] MEDS: Vitamin THERAPEUTIC TAB PO SCH (09:33)
[2017-11-20] MEDS: Amoxicillin PO (*) 500 MG CAP PO SCH ×2 (09:33→21:00)
[2017-11-20] MEDS: CloZAPine TAB* 100 MG TAB PO SCH ×2 (09:34→20:57)
[2017-11-20] MEDS: PINDOLOL 10 MG PO SCH (09:34)
[2017-11-20] MEDS: Gabapentin CAP(*) 300 MG PO SCH ×2 (09:35→20:59)
[2017-11-20] MEDS: Mometasone/Formoter 200/5 MDI INH SCH ×2 (09:56→20:56)
[2017-11-20] MEDS: PTO: Aclidinium POWDER MDI(NF) INH SCH ×2 (09:57→20:55)
[2017-11-20] MEDS: Nicotine Inhaler* 10 MG AMP INH PRN ×3 (12:17→20:20)
[2017-11-20] MEDS: Gabapentin CAP(*) 400 MG PO SCH (13:33)
[2017-11-20] MEDS: Nicotine GUM* 2 MG PO PRN (14:21)
[2017-11-20] MEDS: LORazepam TAB(*) 0.5 MG PO PRN (14:30)
[2017-11-20] MEDS: Omeprazole CAP* 20 MG PO SCH (16:32)
[2017-11-20] MEDS: Warfarin TAB(*) 5 MG PO SCH (16:38)
[2017-11-20] MEDS: traZODone TAB* 100 MG PO SCH (20:57)
[2017-11-20] MEDS: OLANzapine TAB* 10 MG PO SCH (20:59)
[2017-11-20] MEDS: Nicotine Patch Removal NOTE PATCH OFF SCH (21:25)
[2017-11-21] MEDS: Albuterol HFA INHALER* 8 gm MDI INH SCH ×6 (07:30→20:54)
[2017-11-21] MEDS: PTO: Aclidinium POWDER MDI(NF) INH SCH ×2 (09:22→20:53)
[2017-11-21] MEDS: Vitamin B Complex TAB PO SCH (09:24)
[2017-11-21] MEDS: PINDOLOL 10 MG PO SCH (09:24)
[2017-11-21] MEDS: Benztropine TAB* 1 MG PO SCH ×2 (09:24→20:52)
[2017-11-21] MEDS: Atorvastatin* 10 MG TAB PO SCH (09:24)
[2017-11-21] MEDS: Vitamin THERAPEUTIC TAB PO SCH (09:24)
[2017-11-21] MEDS: Gabapentin CAP(*) 300 MG PO SCH ×2 (09:26→20:50)
[2017-11-21] MEDS: Mometasone/Formoter 200/5 MDI INH SCH ×2 (09:26→20:54)
[2017-11-21] MEDS: Nicotine PATCH 21 MG/24 HR* PATCH TRANSDERM SCH (09:26)
[2017-11-21] MEDS: CloZAPine TAB* 100 MG TAB PO SCH ×2 (09:27→20:51)
[2017-11-21] MEDS: DULoxetine DR CAP* 30 MG CAP.DR PO SCH (09:27)
[2017-11-21] MEDS: Nicotine Inhaler* 10 MG AMP INH PRN ×5 (09:33→21:00)
[2017-11-21] MEDS: Amoxicillin PO (*) 500 MG CAP PO SCH ×2 (10:07→20:50)
[2017-11-21] MEDS: Gabapentin CAP(*) 400 MG PO SCH (13:58)
[2017-11-21] MEDS: LORazepam TAB(*) 0.5 MG PO PRN (16:03)
[2017-11-21] MEDS: Nicotine GUM* 2 MG PO PRN ×2 (16:04→18:33)
[2017-11-21] MEDS: Warfarin TAB(*) 5 MG PO SCH (16:46)
[2017-11-21] MEDS: Omeprazole CAP* 20 MG PO SCH (16:46)
[2017-11-21] MEDS: traZODone TAB* 100 MG PO SCH (20:53)
[2017-11-21] MEDS: OLANzapine TAB* 10 MG PO SCH (20:53)
[2017-11-21] MEDS: Nicotine Patch Removal NOTE PATCH OFF SCH (21:02)
[2017-11-22] MEDS: Albuterol HFA INHALER* 8 gm MDI INH SCH ×6 (02:04→19:43)
[2017-11-22] MEDS: CloZAPine TAB* 100 MG TAB PO SCH ×2 (09:53→20:06)
[2017-11-22] MEDS: Vitamin B Complex TAB PO SCH (09:53)
[2017-11-22] MEDS: Atorvastatin* 10 MG TAB PO SCH (09:53)
[2017-11-22] MEDS: Amoxicillin PO (*) 500 MG CAP PO SCH ×2 (09:54→20:06)
[2017-11-22] MEDS: DULoxetine DR CAP* 30 MG CAP.DR PO SCH (09:55)
[2017-11-22] MEDS: Vitamin THERAPEUTIC TAB PO SCH (09:57)
[2017-11-22] MEDS: Benztropine TAB* 1 MG PO SCH ×3 (09:57→20:07)
[2017-11-22] MEDS: Gabapentin CAP(*) 300 MG PO SCH ×2 (09:57→20:08)
[2017-11-22] MEDS: PTO: Aclidinium POWDER MDI(NF) INH SCH ×2 (09:59→20:05)
[2017-11-22] MEDS: Mometasone/Formoter 200/5 MDI INH SCH ×2 (10:01→20:05)
[2017-11-22] MEDS: Nicotine GUM* 2 MG PO PRN ×2 (10:01→12:52)
[2017-11-22] MEDS: Nicotine Inhaler* 10 MG AMP INH PRN ×4 (10:01→20:11)
[2017-11-22] MEDS: Nicotine PATCH 21 MG/24 HR* PATCH TRANSDERM SCH (10:02)
[2017-11-22] MEDS: PINDOLOL 10 MG PO SCH ×2 (10:18→10:19)
--- NOTE | 2017-11-22 12:15 | PN ---
Subjective - Subjective Service Type: 79171 Hosp care 25 min moderate complexity Subjective: Patient reports "if I had thoughts of hurting myself, I could reach out" to others. She states that sitting in milieu is helpful in that other people's presence is distracting from AH. She goes on to describe frustration about being discharged from [facility] at [facility]. She clarifies that she wishes that her primary therapist would have discussed this with her. Gang Worker encourages her to call therapist today and begin conversation. Patient reports pain on arms r/t open wounds. She agrees to utilize bacitracin. Patient reports no change in AH with increase in clozapine and agrees to increase to 500mg at bedtime, along with 100mg in am. She reports mild efficacy in "shaking" with cogentin and denies new onset constipation. She denies offer of MRI due to anxiety/clausterphobia. She reports she is not ready for discharge. Objective - Appearance Appearance: Obese Dysmorphic Features: Yes Hygiene: Normal Grooming: Fairly Well Kept - Behavior Psychomotor Activities: Normal Exhibits Abnormal Movement: No - Attitude and Relatedness Attitude and Relatedness: Cooperative Eye Contact: Fair - Speech Quality: Unpressured Latencies: Normal Quantity: Appropriate - Mood Patient's Decription of Mood: "frustrated" - Affect Observed Affect: Depressed Affect Consistent with: Dysphoria - Thought Process Patient's Thought Process: Coherent, Goal Directed Thought Content: Yes Passive Wish, No Suicidal Planning, No Homicidal Ideation, No Paranoid Ideation - Sensorium Experiencing Hallucinations: Yes Type of Hallucinations: Visual: No, Auditory: Yes, Command: Yes - Level of Consciousness Level of Consciousness: Alert Orientation: Yes Intact, Yes Orientated to Time, Yes Orientated to Place, Yes Orientated to Person - Impulse Control Impulse Control: Tenuous - Insight and Judgement Insight and Judgement: Fair - Group Participation Particating in Group Activities: Yes - Medication Management Medication Management Adherence: Yes Assessment - Assessment Merits Inpatient Hospitalization: For Immediate Safety, For Stabilization, To Initiate Treatment, Consolidate Improvements, Pending Safe DC Plan Inpatient DSM-IV Dx: schizoaffective d/o; borderline personality d/o. UTI; HTN ; hypercholesteremia; COPD Clinical Impression: 52yo white female with hx of schizoaffective d/o, severe trauma history, borderline personality d/o. Admitted voluntary due to increase in command hallucinations and SIB. Clozapine dose decreased in outpatient setting per her request. According to outpatient psychiatrist, she was asymptomatic at 600mg. Patient agrees to titrate dose in hospital setting. She merits hospitalization for immediate safety and stabilization. Plan - Plan Treatment Plan: Name: VARUN GARCIA Birthdate: 1965 [id number] continue acute intensive psychiatric treatment. titrate clozapine and cogentin. patient remains on 15 min observation due to fall risk. Continued Medication Management: Different Medication Medications: Current Medications Aclidinium Robeline (Tudorza Pressair Mdi(Nf)) 1 puff INH BID [facility] Last Admin: 11/22/17 09:59 Dose: 1 inh Al Hydrox/Mg Hydrox/Simethicone (Maalox Plus*) 30 ml PO Q4H PRN PRN Reason: INDIGESTION Albuterol (Ventolin Hfa Inhaler*) 2 puff INH Q4H [facility] Last Admin: 11/22/17 08:16 Dose: Not Given Amoxicillin (Amoxicillin Po (*)) 500 mg PO BID [facility] Last Admin: 11/22/17 09:54 Dose: 500 mg Atorvastatin Calcium (Lipitor*) 10 mg PO DAILY [facility] Last Admin: 11/22/17 09:53 Dose: 10 mg Bacitracin (Bacitracin Ointment*) 1 applic TOPICAL TID [facility] Benztropine Mesylate (Cogentin Tab*) 1 mg PO TID [facility] Clozapine (Clozapine Tab*) 100 mg PO QAM [facility] Last Admin: 11/22/17 09:53 Dose: 100 mg Clozapine (Clozapine Tab*) 500 mg PO BEDTIME [facility] Device (Nicotine Mouth Piece*) 1 each INH .CARTRIDGE [facility] Last Admin: 11/11/17 08:52 Dose: 1 each Duloxetine HCl (Cymbalta Cap*) 60 mg PO DAILY [facility] Last Admin: 11/22/17 09:55 Dose: 60 mg Gabapentin (Neurontin Cap(*)) 600 mg PO BID [facility] Last Admin: 11/22/17 09:57 Dose: 600 mg Gabapentin (Neurontin Cap(*)) 1,200 mg PO DAILY@1400 [facility] Last Admin: 11/21/17 13:58 Dose: 1,200 mg Ibuprofen (Motrin Tab*) 400 mg PO Q8H PRN PRN Reason: PAIN Last Admin: 11/16/17 18:35 Dose: 400 mg Loperamide HCl (Imodium Cap*) 2 mg PO .SEE INSTRUCTIONS PRN PRN Reason: LOOSE STOOL Lorazepam (Ativan Tab(*)) 0.5 mg PO TID PRN PRN Reason: ANXIETY Last Admin: 11/21/17 16:03 Dose: 0.5 mg Meclizine HCl (Antivert Tab*) 12.5 mg PO Q8HR PRN PRN Reason: DIZZINESS Mometasone Furoate/Formoterol Fumar (Dulera 200/5 Mdi*) 2 puff INH BID [facility] Last Admin: 11/22/17 10:01 Dose: 2 puff Multivitamins (Theragran Tab*) 1 tab PO DAILY [facility] Last Admin: 11/22/17 09:57 Dose: 1 tab Nicotine (Nicotine Inhaler*) 10 mg INH Q2H PRN PRN Reason: CRAVING Last Admin: 11/22/17 10:01 Dose: 10 mg Nicotine (Nicotine Patch 21 Mg/24 Hr*) 1 patch TRANSDERM DAILY [facility] Last Admin: 11/22/17 10:02 Dose: 1 patch Nicotine Polacrilex (Nicotine Gum*) 2 mg PO Q2H PRN PRN Reason: CRAVING Last Admin: 11/22/17 10:01 Dose: 2 mg Olanzapine (Zyprexa Tab*) 5 mg PO BEDTIME [facility] Omeprazole (Prilosec Cap*) 20 mg PO DAILY@1700 [facility] Last Admin: 11/21/17 16:46 Dose: 20 mg Pharmacy Profile Note (Nicotine Patch Removal Note*) 1 note PATCH OFF 2100 [facility] Last Admin: 11/21/17 21:02 Dose: 1 note Pindolol (Pindolol(Nf)) 5 mg PO QAM [facility] Last Admin: 11/22/17 10:19 Dose: Not Given Trazodone HCl (Desyrel Tab*) 200 mg PO BEDTIME [facility] Last Admin: 11/21/17 20:53 Dose: 200 mg Vitamin B Complex/Vitamin E (Complex B-100*) 1 tab PO DAILY [facility] Last Admin: 11/22/17 09:53 Dose: 1 tab Warfarin Sodium (Coumadin Tab(*)) 5 mg PO SuMoWeFrSa@1700 [facility] Last Admin: 11/21/17 16:46 Dose: 5 mg Warfarin Sodium (Coumadin Tab(*)) 7.5 mg PO TuTh@1700 [facility] Last Admin: 11/18/17 18:28 Dose: Not Given - Discharge Plan Discharge Plan: Outpatient Follow Up Out[facility]
[2017-11-22] MEDS: LORazepam TAB(*) 0.5 MG PO PRN ×2 (12:52→20:56)
[2017-11-22] MEDS: Gabapentin CAP(*) 400 MG PO SCH (13:36)
[2017-11-22] MEDS: Bacitracin OINTMENT* 0.5% 0.5 oz TUBE TOPICAL SCH ×2 (14:05→23:05)
[2017-11-22] MEDS: Omeprazole CAP* 20 MG PO SCH (16:56)
[2017-11-22] MEDS: Warfarin TAB(*) 5 MG PO SCH (16:56)
[2017-11-22] MEDS: OLANzapine TAB* 10 MG PO SCH (20:07)
[2017-11-22] MEDS: traZODone TAB* 100 MG PO SCH (20:07)
[2017-11-22] MEDS: Nicotine Patch Removal NOTE PATCH OFF SCH (20:08)
[2017-11-23] MEDS: Albuterol HFA INHALER* 8 gm MDI INH SCH ×5 (08:36→19:55)
[2017-11-23] MEDS: Benztropine TAB* 1 MG PO SCH ×3 (08:51→20:38)
[2017-11-23] MEDS: Vitamin THERAPEUTIC TAB PO SCH (08:51)
[2017-11-23] MEDS: DULoxetine DR CAP* 30 MG CAP.DR PO SCH (08:51)
[2017-11-23] MEDS: CloZAPine TAB* 100 MG TAB PO SCH ×2 (08:51→20:37)
[2017-11-23] MEDS: Vitamin B Complex TAB PO SCH (08:51)
[2017-11-23] MEDS: Gabapentin CAP(*) 300 MG PO SCH ×2 (08:51→20:38)
[2017-11-23] MEDS: Amoxicillin PO (*) 500 MG CAP PO SCH ×2 (08:52→20:42)
[2017-11-23] MEDS: Bacitracin OINTMENT* 0.5% 0.5 oz TUBE TOPICAL SCH ×3 (08:52→22:31)
[2017-11-23] MEDS: Mometasone/Formoter 200/5 MDI INH SCH ×2 (08:52→20:41)
[2017-11-23] MEDS: Atorvastatin* 10 MG TAB PO SCH (08:52)
[2017-11-23] MEDS: PTO: Aclidinium POWDER MDI(NF) INH SCH ×2 (08:52→20:40)
[2017-11-23] MEDS: Nicotine PATCH 21 MG/24 HR* PATCH TRANSDERM SCH (08:53)
[2017-11-23] MEDS: PINDOLOL 10 MG PO SCH (09:09)
[2017-11-23] MEDS: LORazepam TAB(*) 0.5 MG PO PRN ×2 (12:15→18:16)
[2017-11-23] MEDS: Mouth Piece, Nicotine* 1 EACH CARTRIDGE INH SCH (12:15)
[2017-11-23] MEDS: Nicotine Inhaler* 10 MG AMP INH PRN ×4 (12:15→20:35)
[2017-11-23] MEDS: Nicotine GUM* 2 MG PO PRN ×3 (12:18→20:35)
[2017-11-23] MEDS: Gabapentin CAP(*) 400 MG PO SCH (14:07)
[2017-11-23] MEDS: Ibuprofen TAB* 400 MG PO PRN (16:02)
[2017-11-23] MEDS: Omeprazole CAP* 20 MG PO SCH (16:44)
[2017-11-23] MEDS: Warfarin TAB(*) 7.5 MG PO SCH (16:44)
[2017-11-23] MEDS: OLANzapine TAB* 10 MG PO SCH (20:36)
[2017-11-23] MEDS: traZODone TAB* 100 MG PO SCH (20:38)
[2017-11-23] MEDS: Nicotine Patch Removal NOTE PATCH OFF SCH (20:42)
[2017-11-24] MEDS: Albuterol HFA INHALER* 8 gm MDI INH SCH ×7 (01:05→23:25)
[2017-11-24] MEDS: PTO: Aclidinium POWDER MDI(NF) INH SCH ×2 (09:42→21:20)
[2017-11-24] MEDS: Vitamin B Complex TAB PO SCH (09:46)
[2017-11-24] MEDS: Amoxicillin PO (*) 500 MG CAP PO SCH ×2 (09:46→21:50)
[2017-11-24] MEDS: Gabapentin CAP(*) 300 MG PO SCH ×2 (09:46→21:51)
[2017-11-24] MEDS: DULoxetine DR CAP* 30 MG CAP.DR PO SCH (09:47)
[2017-11-24] MEDS: CloZAPine TAB* 100 MG TAB PO SCH ×2 (09:47→21:49)
[2017-11-24] MEDS: Benztropine TAB* 1 MG PO SCH ×3 (09:47→21:50)
[2017-11-24] MEDS: Atorvastatin* 10 MG TAB PO SCH (09:47)
[2017-11-24] MEDS: PINDOLOL 10 MG PO SCH (09:48)
[2017-11-24] MEDS: Vitamin THERAPEUTIC TAB PO SCH (09:48)
[2017-11-24] MEDS: Mometasone/Formoter 200/5 MDI INH SCH ×2 (09:50→21:21)
[2017-11-24] MEDS: Bacitracin OINTMENT* 0.5% 0.5 oz TUBE TOPICAL SCH ×3 (10:00→21:53)
[2017-11-24] MEDS: Mouth Piece, Nicotine* 1 EACH CARTRIDGE INH SCH (10:13)
[2017-11-24] MEDS: Nicotine Inhaler* 10 MG AMP INH PRN ×5 (10:13→21:49)
[2017-11-24] MEDS: Nicotine GUM* 2 MG PO PRN ×4 (10:13→18:17)
[2017-11-24] MEDS: Nicotine PATCH 21 MG/24 HR* PATCH TRANSDERM SCH (10:14)
[2017-11-24] MEDS: Gabapentin CAP(*) 400 MG PO SCH (13:56)
[2017-11-24] MEDS: LORazepam TAB(*) 0.5 MG PO PRN ×2 (14:31→23:25)
[2017-11-24] MEDS: Omeprazole CAP* 20 MG PO SCH (16:58)
[2017-11-24] MEDS: Warfarin TAB(*) 5 MG PO SCH (16:58)
--- NOTE | 2017-11-24 17:07 | PN ---
Subjective - Subjective Service Type: 33170 Hosp care 25 min moderate complexity Subjective: Patient reports improvement in mood and is exhibiting insight during groups and individual interactions. She continues to c/o weakness and shaking that impede her functioning. She continues to c/o frustration that her therapist "kicked her out" of [facility]. She agrees to call therapist to discuss and clarify her assumptions. Limo Driver left message with patient PCP, Dr Bradley, to discuss further medical tests/needs. PT and OT consults placed to increase patient's ADLs. Objective - Appearance Appearance: Obese Dysmorphic Features: Yes Hygiene: Mal-odorous Grooming: Disheveled - Behavior Psychomotor Activities: Abnormal-Increased Exhibits Abnormal Movement: Yes - Attitude and Relatedness Attitude and Relatedness: Cooperative Eye Contact: Good - Speech Quality: Unpressured Latencies: Normal Quantity: Appropriate - Mood Patient's Decription of Mood: "Anxious" - Affect Observed Affect: Depressed Affect Consistent with: Dysphoria - Thought Process Patient's Thought Process: Incoherent, Goal Directed Thought Content: Yes Passive Wish, Yes Paranoid Ideation, No Suicidal Planning, No Homicidal Ideation - Sensorium Experiencing Hallucinations: Yes Type of Hallucinations: Auditory: Yes, Command: Yes - Level of Consciousness Level of Consciousness: Alert Orientation: Yes Intact, Yes Orientated to Time, Yes Orientated to Place, Yes Orientated to Person - Impulse Control Impulse Control: Intact - Insight and Judgement Insight and Judgement: Fair - Group Participation Particating in Group Activities: Yes - Medication Management Medication Management Adherence: Yes Assessment - Assessment Merits Inpatient Hospitalization: For Immediate Safety, For Stabilization, Consolidate Improvements, Pending Safe DC Plan Inpatient DSM-IV Dx: schizoaffective d/o; borderline personality d/o. UTI; HTN ; hypercholesteremia; COPD Clinical Impression: 52yo white female with hx of schizoaffective d/o, severe trauma history, borderline personality d/o. Admitted voluntary due to increase in command hallucinations and SIB. Clozapine dose decreased in outpatient setting per her request. According to outpatient psychiatrist, she was asymptomatic at 600mg. Patient agrees to titrate dose in hospital setting. She merits hospitalization for immediate safety and stabilization. Plan - Plan Treatment Plan: Name: VARUN GARCIA Birthdate: 1965 [id number] continue acute intensive psychiatric treatment. continue current medications. patient remains on 15 min observation due to fall risk. PT and OT consults requested to promote ADLs. obtain CBC and PT/INR in am. Continued Medication Management: Different Medication Medications: Current Medications Aclidinium Sunflower (Tudorza Jacques Mdi(Nf)) 1 puff INH BID [facility] Last Admin: 11/24/17 09:42 Dose: 1 inh Al Hydrox/Mg Hydrox/Simethicone (Maalox Plus*) 30 ml PO Q4H PRN PRN Reason: INDIGESTION Albuterol (Ventolin Hfa Inhaler*) 2 puff INH Q4H [facility] Last Admin: 11/24/17 15:56 Dose: 2 puff Amoxicillin (Amoxicillin Po (*)) 500 mg PO BID [facility] Last Admin: 11/24/17 09:46 Dose: 500 mg Atorvastatin Calcium (Lipitor*) 10 mg PO DAILY [facility] Last Admin: 11/24/17 09:47 Dose: 10 mg Bacitracin (Bacitracin Ointment*) 1 applic TOPICAL TID [facility] Last Admin: 11/24/17 13:59 Dose: Not Given Benztropine Mesylate (Cogentin Tab*) 1 mg PO TID [facility] Last Admin: 11/24/17 13:56 Dose: 1 mg Clozapine (Clozapine Tab*) 100 mg PO QAM [facility] Last Admin: 11/24/17 09:47 Dose: 100 mg Clozapine (Clozapine Tab*) 500 mg PO BEDTIME [facility] Last Admin: 11/23/17 20:37 Dose: 500 mg Device (Nicotine Mouth Piece*) 1 each INH .CARTRIDGE [facility] Last Admin: 11/24/17 10:13 Dose: 1 each Duloxetine HCl (Cymbalta Cap*) 60 mg PO DAILY [facility] Last Admin: 11/24/17 09:47 Dose: 60 mg Gabapentin (Neurontin Cap(*)) 600 mg PO BID [facility] Last Admin: 11/24/17 09:46 Dose: 600 mg Gabapentin (Neurontin Cap(*)) 1,200 mg PO DAILY@1400 [facility] Last Admin: 11/24/17 13:56 Dose: 1,200 mg Ibuprofen (Motrin Tab*) 400 mg PO Q8H PRN PRN Reason: PAIN Last Admin: 11/23/17 16:02 Dose: 400 mg Loperamide HCl (Imodium Cap*) 2 mg PO .SEE INSTRUCTIONS PRN PRN Reason: LOOSE STOOL Lorazepam (Ativan Tab(*)) 0.5 mg PO TID PRN PRN Reason: ANXIETY Last Admin: 11/24/17 14:31 Dose: 0.5 mg Meclizine HCl (Antivert Tab*) 12.5 mg PO Q8HR PRN PRN Reason: DIZZINESS Mometasone Furoate/Formoterol Fumar (Dulera 200/5 Mdi*) 2 puff INH BID [facility] Last Admin: 11/24/17 09:50 Dose: 2 puff Multivitamins (Theragran Tab*) 1 tab PO DAILY [facility] Last Admin: 11/24/17 09:48 Dose: 1 tab Nicotine (Nicotine Inhaler*) 10 mg INH Q2H PRN PRN Reason: CRAVING Last Admin: 11/24/17 15:57 Dose: 10 mg Nicotine (Nicotine Patch 21 Mg/24 Hr*) 1 patch TRANSDERM DAILY [facility] Last Admin: 11/24/17 10:14 Dose: 1 patch Nicotine Polacrilex (Nicotine Gum*) 2 mg PO Q2H PRN PRN Reason: CRAVING Last Admin: 11/24/17 15:57 Dose: 2 mg Olanzapine (Zyprexa Tab*) 5 mg PO BEDTIME [facility] Last Admin: 11/23/17 20:36 Dose: 5 mg Omeprazole (Prilosec Cap*) 20 mg PO DAILY@1700 [facility] Last Admin: 11/24/17 16:58 Dose: 20 mg Pharmacy Profile Note (Nicotine Patch Removal Note*) 1 note PATCH OFF 2100 [facility] Last Admin: 11/23/17 20:42 Dose: 1 note Pindolol (Pindolol(Nf)) 5 mg PO QAM [facility] Last Admin: 11/24/17 09:48 Dose: 5 mg Trazodone HCl (Desyrel Tab*) 200 mg PO BEDTIME [facility] Last Admin: 11/23/17 20:38 Dose: 200 mg Vitamin B Complex/Vitamin E (Complex B-100*) 1 tab PO DAILY [facility] Last Admin: 11/24/17 09:46 Dose: 1 tab Warfarin Sodium (Coumadin Tab(*)) 5 mg PO SuMoWeFrSa@1700 [facility] Last Admin: 11/24/17 16:58 Dose: 5 mg Warfarin Sodium (Coumadin Tab(*)) 7.5 mg PO TuTh@1700 [facility] Last Admin: 11/23/17 16:44 Dose: 7.5 mg - Discharge Plan Discharge Plan: Outpatient Follow Up Outpatient Program: [facility]
[2017-11-24] MEDS: OLANzapine TAB* 10 MG PO SCH (21:50)
[2017-11-24] MEDS: traZODone TAB* 100 MG PO SCH (21:50)
[2017-11-24] MEDS: Nicotine Patch Removal NOTE PATCH OFF SCH (21:52)
[2017-11-24] MEDS: Ibuprofen TAB* 400 MG PO PRN (23:25)
[2017-11-25] MEDS: Albuterol HFA INHALER* 8 gm MDI INH SCH ×5 (04:00→20:50)
[2017-11-25] MEDS: CloZAPine TAB* 100 MG TAB PO SCH ×2 (08:38→20:47)
[2017-11-25] MEDS: DULoxetine DR CAP* 30 MG CAP.DR PO SCH (08:38)
[2017-11-25] MEDS: Amoxicillin PO (*) 500 MG CAP PO SCH ×2 (08:39→20:48)
[2017-11-25] MEDS: Vitamin THERAPEUTIC TAB PO SCH (08:39)
[2017-11-25] MEDS: Atorvastatin* 10 MG TAB PO SCH (08:39)
[2017-11-25] MEDS: Benztropine TAB* 1 MG PO SCH ×3 (08:40→20:48)
[2017-11-25] MEDS: Gabapentin CAP(*) 300 MG PO SCH ×2 (08:40→20:48)
[2017-11-25] MEDS: Vitamin B Complex TAB PO SCH (08:41)
[2017-11-25] MEDS: Mometasone/Formoter 200/5 MDI INH SCH ×2 (08:43→20:50)
[2017-11-25] MEDS: PTO: Aclidinium POWDER MDI(NF) INH SCH ×2 (08:43→20:50)
[2017-11-25] MEDS: Nicotine PATCH 21 MG/24 HR* PATCH TRANSDERM SCH (08:44)
[2017-11-25] MEDS: PINDOLOL 10 MG PO SCH (10:06)
[2017-11-25] MEDS: Bacitracin OINTMENT* 0.5% 0.5 oz TUBE TOPICAL SCH ×3 (10:11→20:50)
[2017-11-25 11:47] LABS: ABS Basophils 0 10^3/ul (0-0.2); ABS Eosinophils 0 10^3/ul (0-0.6); ABS Lymphocytes 1.6 10^3/ul (1.0-4.8); ABS Monocytes 0.5 10^3/ul (0-0.8); ABS Neutrophils 2.8 10^3/ul (1.5-7.7); ABS Nucleated RBC 0 10^3/ul; Eosinophil % 0.1 % (0-6); Hematocrit 41 % (35-47); Hemoglobin 13.6 g/dl (12.0-16.0); Lymphocyte % 33.4 % (25-47); Mean Corpuscular HGB Conc 33 g/dl (31-36); Mean Corpuscular Hemoglobin 29 pg (27-31); Mean Corpuscular Volume 87 fL (80-97); Mean Platelet Volume 9 um3 (7.4-10.4); Nucleated Red Blood Cells % 0.1; Platelet Count 162 10^3/ul (150-450); Red Blood Count 4.73 10^6/ul (4.0-5.4); Red Cell Distribution Width 16 % (10.5-15); White Blood Count 4.9 10^3/ul (3.5-10.8)
[2017-11-25 12:04] LABS: INR 2.69 (0.77-1.02)
[2017-11-25] MEDS: Nicotine GUM* 2 MG PO PRN ×2 (12:49→19:11)
[2017-11-25] MEDS: Nicotine Inhaler* 10 MG AMP INH PRN ×4 (12:50→22:03)
[2017-11-25] MEDS: LORazepam TAB(*) 0.5 MG PO PRN ×2 (12:53→18:29)
[2017-11-25] MEDS: Ibuprofen TAB* 400 MG PO PRN (12:53)
[2017-11-25] MEDS: Gabapentin CAP(*) 400 MG PO SCH (13:59)
[2017-11-25] MEDS: Warfarin TAB(*) 7.5 MG PO SCH (16:13)
[2017-11-25] MEDS: Omeprazole CAP* 20 MG PO SCH (16:13)
--- NOTE | 2017-11-25 16:24 | PN ---
[facility]: Group Therapy Note - Service Type Service Type: 38916 Group Psychotherapy - Medication Education Group: Patient attended group and presented with flat affect that did not vary with discussion. Although responsive to direct prompts to respond to questions, patient did not engage in spontaneous conversation.
[2017-11-25] MEDS: traZODone TAB* 100 MG PO SCH (20:48)
[2017-11-25] MEDS: OLANzapine TAB* 10 MG PO SCH (20:49)
[2017-11-25] MEDS: Nicotine Patch Removal NOTE PATCH OFF SCH (21:17)
[2017-11-26] MEDS: Albuterol HFA INHALER* 8 gm MDI INH SCH ×6 (04:00→20:18)
[2017-11-26] MEDS: Bacitracin OINTMENT* 0.5% 0.5 oz TUBE TOPICAL SCH ×3 (08:57→21:24)
[2017-11-26] MEDS: DULoxetine DR CAP* 30 MG CAP.DR PO SCH (09:21)
[2017-11-26] MEDS: Vitamin THERAPEUTIC TAB PO SCH (09:22)
[2017-11-26] MEDS: CloZAPine TAB* 100 MG TAB PO SCH ×2 (09:22→21:15)
[2017-11-26] MEDS: Atorvastatin* 10 MG TAB PO SCH (09:22)
[2017-11-26] MEDS: Vitamin B Complex TAB PO SCH (09:23)
[2017-11-26] MEDS: Gabapentin CAP(*) 300 MG PO SCH ×2 (09:23→21:21)
[2017-11-26] MEDS: PINDOLOL 10 MG PO SCH (09:24)
[2017-11-26] MEDS: Amoxicillin PO (*) 500 MG CAP PO SCH ×2 (09:25→21:20)
[2017-11-26] MEDS: Mometasone/Formoter 200/5 MDI INH SCH ×2 (09:27→21:14)
[2017-11-26] MEDS: PTO: Aclidinium POWDER MDI(NF) INH SCH ×2 (09:27→21:14)
[2017-11-26] MEDS: Nicotine PATCH 21 MG/24 HR* PATCH TRANSDERM SCH (09:29)
[2017-11-26] MEDS: Benztropine TAB* 1 MG PO SCH ×2 (10:10→21:20)
[2017-11-26] MEDS: Nicotine Inhaler* 10 MG AMP INH PRN ×5 (10:32→21:56)
[2017-11-26] MEDS: Nicotine GUM* 2 MG PO PRN ×4 (10:32→17:38)
[2017-11-26] MEDS: Benztropine TAB* 2 MG PO SCH ×2 (10:35→13:44)
[2017-11-26] MEDS: LORazepam TAB(*) 0.5 MG PO PRN ×2 (10:41→17:41)
[2017-11-26] MEDS: Gabapentin CAP(*) 400 MG PO SCH (13:45)
[2017-11-26] MEDS: Warfarin TAB(*) 5 MG PO SCH (16:43)
[2017-11-26] MEDS: Omeprazole CAP* 20 MG PO SCH (16:43)
--- NOTE | 2017-11-26 20:45 | PN ---
Subjective - Subjective Service Type: 83748 Hosp care 25 min moderate complexity Subjective: Patient is ambulating with walker and staff monitoring. She reports anxiety, and use of lorazepam with good effect. She continues to endorse AH and delusion that God is punishing her. She states that she knows something bad is going to happen and that God is not allowing any medical tests to report any positive results. Team meeting occurred with Belle, her Simon, Homoeopath Leelee Long, Pull Up Hand Chata Delatorre and creative services writer. Discussed presentation and treatment planning. See SW notes for details. Objective - Appearance Appearance: Obese Dysmorphic Features: Yes Hygiene: Mal-odorous Grooming: Disheveled - Behavior Psychomotor Activities: Abnormal-Increased Exhibits Abnormal Movement: Yes - Attitude and Relatedness Attitude and Relatedness: Cooperative Eye Contact: Fair - Speech Quality: Unpressured Latencies: Normal Quantity: Appropriate - Mood Patient's Decription of Mood: "Anxious" - Affect Observed Affect: Depressed Affect Consistent with: Dysphoria - Thought Process Patient's Thought Process: Coherent, Goal Directed Thought Content: Yes Passive Wish, No Suicidal Planning, No Homicidal Ideation, No Paranoid Ideation - Sensorium Experiencing Hallucinations: Yes Type of Hallucinations: Visual: No, Auditory: Yes, Command: Yes - Level of Consciousness Level of Consciousness: Alert Orientation: Yes Intact, Yes Orientated to Time, Yes Orientated to Place, Yes Orientated to Person - Impulse Control Impulse Control: Intact - Insight and Judgement Insight and Judgement: Fair - Group Participation Particating in Group Activities: Yes - Medication Management Medication Management Adherence: Yes Assessment - Assessment Merits Inpatient Hospitalization: For Immediate Safety, For Stabilization, Consolidate Improvements, For Discharge Planning Inpatient DSM-IV Dx: schizoaffective d/o; borderline personality d/o. UTI; HTN ; hypercholesteremia; COPD Clinical Impression: 52yo white female with hx of schizoaffective d/o, severe trauma history, borderline personality d/o. Admitted voluntary due to increase in command hallucinations and SIB. Clozapine dose decreased in outpatient setting per her request. According to outpatient psychiatrist, she was asymptomatic at 600mg. Patient agrees to titrate dose in hospital setting. She merits hospitalization for immediate safety and stabilization. Plan - Plan Treatment Plan: Name: BELLE GARCIA Birthdate: 1965 [id number] continue acute intensive psychiatric treatment. encourage daytime activity and proper sleep hygiene. continue current medications. patient remains on 15 min observation due to fall risk. Continued Medication Management: Start Medication Medications: Current Medications Aclidinium Wakeman (Tudorza Press Mdi(Nf)) 1 puff INH BID [facility] Last Admin: 11/26/17 09:27 Dose: 1 inh Al Hydrox/Mg Hydrox/Simethicone (Maalox Plus*) 30 ml PO Q4H PRN PRN Reason: INDIGESTION Albuterol (Ventolin Hfa Inhaler*) 2 puff INH Q4H [facility] Last Admin: 11/26/17 20:18 Dose: 2 puff Amoxicillin (Amoxicillin Po (*)) 500 mg PO BID [facility] Last Admin: 11/26/17 09:25 Dose: 500 mg Atorvastatin Calcium (Lipitor*) 10 mg PO DAILY [facility] Last Admin: 11/26/17 09:22 Dose: 10 mg Bacitracin (Bacitracin Ointment*) 1 applic TOPICAL TID [facility] Last Admin: 11/26/17 13:50 Dose: 1 applic Benztropine Mesylate (Cogentin Tab*) 1 mg PO TID [facility] Clozapine (Clozapine Tab*) 100 mg PO QAM [facility] Last Admin: 11/26/17 09:22 Dose: 100 mg Clozapine (Clozapine Tab*) 500 mg PO BEDTIME [facility] Last Admin: 11/25/17 20:47 Dose: 500 mg Device (Nicotine Mouth Piece*) 1 each INH .CARTRIDGE [facility] Last Admin: 11/24/17 10:13 Dose: 1 each Duloxetine HCl (Cymbalta Cap*) 60 mg PO DAILY [facility] Last Admin: 11/26/17 09:21 Dose: 60 mg Gabapentin (Neurontin Cap(*)) 600 mg PO BID [facility] Last Admin: 11/26/17 09:23 Dose: 600 mg Gabapentin (Neurontin Cap(*)) 1,200 mg PO DAILY@1400 [facility] Last Admin: 11/26/17 13:45 Dose: 1,200 mg Ibuprofen (Motrin Tab*) 400 mg PO Q8H PRN PRN Reason: PAIN Last Admin: 11/25/17 12:53 Dose: 400 mg Loperamide HCl (Imodium Cap*) 2 mg PO .SEE INSTRUCTIONS PRN PRN Reason: LOOSE STOOL Lorazepam (Ativan Tab(*)) 0.5 mg PO TID PRN PRN Reason: ANXIETY Last Admin: 11/26/17 17:41 Dose: 0.5 mg Meclizine HCl (Antivert Tab*) 12.5 mg PO Q8HR PRN PRN Reason: DIZZINESS Mometasone Furoate/Formoterol Fumar (Dulera 200/5 Mdi*) 2 puff INH BID [facility] Last Admin: 11/26/17 09:27 Dose: 2 puff Multivitamins (Theragran Tab*) 1 tab PO DAILY [facility] Last Admin: 11/26/17 09:22 Dose: 1 tab Nicotine (Nicotine Inhaler*) 10 mg INH Q2H PRN PRN Reason: CRAVING Last Admin: 11/26/17 17:38 Dose: 10 mg Nicotine (Nicotine Patch 21 Mg/24 Hr*) 1 patch TRANSDERM DAILY [facility] Last Admin: 11/26/17 09:29 Dose: 1 patch Nicotine Polacrilex (Nicotine Gum*) 2 mg PO Q2H PRN PRN Reason: CRAVING Last Admin: 11/26/17 17:38 Dose: 2 mg Olanzapine (Zyprexa Tab*) 5 mg PO BEDTIME [facility] Last Admin: 11/25/17 20:49 Dose: 5 mg Omeprazole (Prilosec Cap*) 20 mg PO DAILY@1700 [facility] Last Admin: 11/26/17 16:43 Dose: 20 mg Pharmacy Profile Note (Nicotine Patch Removal Note*) 1 note PATCH OFF 2100 [facility] Last Admin: 11/25/17 21:17 Dose: Not Given Pindolol (Pindolol(Nf)) 5 mg PO QAM [facility] Last Admin: 11/26/17 09:24 Dose: Not Given Trazodone HCl (Desyrel Tab*) 200 mg PO BEDTIME [facility] Last Admin: 11/25/17 20:48 Dose: 200 mg Vitamin B Complex/Vitamin E (Complex B-100*) 1 tab PO DAILY [facility] Last Admin: 11/26/17 09:23 Dose: 1 tab Warfarin Sodium (Coumadin Tab(*)) 5 mg PO SuMoWeFrSa@1700 [facility] Last Admin: 11/26/17 16:43 Dose: 5 mg Warfarin Sodium (Coumadin Tab(*)) 7.5 mg PO TuTh@1700 [facility] Last Admin: 11/25/17 16:13 Dose: 7.5 mg - Discharge Plan Discharge Plan: Outpatient Follow [facility]
[2017-11-26] MEDS: OLANzapine TAB* 10 MG PO SCH (21:16)
[2017-11-26] MEDS: Nicotine Patch Removal NOTE PATCH OFF SCH (21:20)
[2017-11-26] MEDS: traZODone TAB* 100 MG PO SCH (21:21)
[2017-11-27] MEDS: Albuterol HFA INHALER* 8 gm MDI INH SCH ×6 (04:00→20:55)
[2017-11-27] MEDS: PINDOLOL 10 MG PO SCH (09:29)
[2017-11-27] MEDS: Mometasone/Formoter 200/5 MDI INH SCH ×2 (09:29→20:54)
[2017-11-27] MEDS: PTO: Aclidinium POWDER MDI(NF) INH SCH ×2 (09:30→20:55)
[2017-11-27] MEDS: Vitamin B Complex TAB PO SCH (09:30)
[2017-11-27] MEDS: Gabapentin CAP(*) 300 MG PO SCH ×2 (09:31→20:53)
[2017-11-27] MEDS: CloZAPine TAB* 100 MG TAB PO SCH ×2 (09:33→20:51)
[2017-11-27] MEDS: Nicotine PATCH 21 MG/24 HR* PATCH TRANSDERM SCH (09:33)
[2017-11-27] MEDS: Vitamin THERAPEUTIC TAB PO SCH (09:33)
[2017-11-27] MEDS: Atorvastatin* 10 MG TAB PO SCH (09:34)
[2017-11-27] MEDS: Amoxicillin PO (*) 500 MG CAP PO SCH ×2 (09:34→20:52)
[2017-11-27] MEDS: Benztropine TAB* 1 MG PO SCH ×3 (09:34→20:52)
[2017-11-27] MEDS: DULoxetine DR CAP* 30 MG CAP.DR PO SCH (09:35)
[2017-11-27] MEDS: Bacitracin OINTMENT* 0.5% 0.5 oz TUBE TOPICAL SCH ×4 (09:40→21:12)
[2017-11-27] MEDS: LORazepam TAB(*) 0.5 MG PO PRN (12:55)
[2017-11-27] MEDS: Gabapentin CAP(*) 400 MG PO SCH (12:55)
[2017-11-27] MEDS: Nicotine Inhaler* 10 MG AMP INH PRN ×4 (12:56→21:58)
[2017-11-27] MEDS: Nicotine GUM* 2 MG PO PRN ×4 (12:56→21:58)
[2017-11-27] MEDS: Ibuprofen TAB* 400 MG PO PRN (15:42)
[2017-11-27] MEDS: Warfarin TAB(*) 5 MG PO SCH (17:04)
[2017-11-27] MEDS: Omeprazole CAP* 20 MG PO SCH (17:05)
[2017-11-27] MEDS: traZODone TAB* 100 MG PO SCH (20:52)
[2017-11-27] MEDS: OLANzapine TAB* 10 MG PO SCH (20:54)
[2017-11-27] MEDS: Nicotine Patch Removal NOTE PATCH OFF SCH (21:11)
[2017-11-28] MEDS: Albuterol HFA INHALER* 8 gm MDI INH SCH ×6 (03:13→20:21)
[2017-11-28] MEDS: Mometasone/Formoter 200/5 MDI INH SCH ×2 (10:14→20:22)
[2017-11-28] MEDS: Vitamin B Complex TAB PO SCH (10:15)
[2017-11-28] MEDS: Vitamin THERAPEUTIC TAB PO SCH (10:16)
[2017-11-28] MEDS: Gabapentin CAP(*) 300 MG PO SCH ×2 (10:16→20:18)
[2017-11-28] MEDS: Benztropine TAB* 1 MG PO SCH ×3 (10:17→20:19)
[2017-11-28] MEDS: Amoxicillin PO (*) 500 MG CAP PO SCH ×2 (10:17→20:18)
[2017-11-28] MEDS: Atorvastatin* 10 MG TAB PO SCH (10:17)
[2017-11-28] MEDS: DULoxetine DR CAP* 30 MG CAP.DR PO SCH (10:18)
[2017-11-28] MEDS: CloZAPine TAB* 100 MG TAB PO SCH ×2 (10:18→20:18)
[2017-11-28] MEDS: PTO: Aclidinium POWDER MDI(NF) INH SCH ×2 (10:24→20:21)
[2017-11-28] MEDS: Nicotine Inhaler* 10 MG AMP INH PRN ×3 (10:27→18:25)
[2017-11-28] MEDS: Nicotine PATCH 21 MG/24 HR* PATCH TRANSDERM SCH (10:28)
[2017-11-28] MEDS: PINDOLOL 10 MG PO SCH (10:30)
[2017-11-28] MEDS: Bacitracin OINTMENT* 0.5% 0.5 oz TUBE TOPICAL SCH ×3 (10:42→20:44)
[2017-11-28] MEDS: Nicotine GUM* 2 MG PO PRN ×2 (15:03→18:25)
[2017-11-28] MEDS: Gabapentin CAP(*) 400 MG PO SCH (15:03)
[2017-11-28] MEDS: Omeprazole CAP* 20 MG PO SCH (16:42)
[2017-11-28] MEDS: Warfarin TAB(*) 5 MG PO SCH (16:42)
[2017-11-28] MEDS: LORazepam TAB(*) 0.5 MG PO PRN (16:43)
[2017-11-28] MEDS: OLANzapine TAB* 10 MG PO SCH (20:18)
[2017-11-28] MEDS: traZODone TAB* 100 MG PO SCH (20:19)
[2017-11-28] MEDS: Nicotine Patch Removal NOTE PATCH OFF SCH (20:44)
[2017-11-29] MEDS: Albuterol HFA INHALER* 8 gm MDI INH SCH ×6 (00:30→21:55)
[2017-11-29] MEDS: PINDOLOL 10 MG PO SCH (09:17)
[2017-11-29] MEDS: Benztropine TAB* 1 MG PO SCH ×3 (10:37→21:51)
[2017-11-29] MEDS: DULoxetine DR CAP* 30 MG CAP.DR PO SCH (10:37)
[2017-11-29] MEDS: Vitamin B Complex TAB PO SCH (10:37)
[2017-11-29] MEDS: Gabapentin CAP(*) 300 MG PO SCH ×2 (10:37→21:51)
[2017-11-29] MEDS: Amoxicillin PO (*) 500 MG CAP PO SCH ×2 (10:37→21:54)
[2017-11-29] MEDS: Atorvastatin* 10 MG TAB PO SCH (10:37)
[2017-11-29] MEDS: Vitamin THERAPEUTIC TAB PO SCH (10:37)
[2017-11-29] MEDS: PTO: Aclidinium POWDER MDI(NF) INH SCH ×2 (10:38→21:57)
[2017-11-29] MEDS: CloZAPine TAB* 100 MG TAB PO SCH ×2 (10:38→21:51)
--- NOTE | 2017-11-29 10:50 | PN ---
Subjective - Subjective Date of Service: 11/29/17 Service Type: [id number] Hosp care 15 min low complexity Subjective: Belle is seen in coverage for NPP Brooklynn Ho. She is calm and cooperative , expressing that her family meeting with her on Wednesday went well and she would like to target sometime this week for discharge back home. She is tolerating her medications well and staff reports indicate that her symptom profile is improving. She has no acute complaints today and denies SI, HI or AH. Objective - Appearance Appearance: Well Developed/Nourished Dysmorphic Features: No Hygiene: Normal Grooming: Fairly Well Kept - Behavior Psychomotor Activities: Normal Exhibits Abnormal Movement: No - Attitude and Relatedness Attitude and Relatedness: Cooperative Eye Contact: Fair - Speech Quality: Unpressured Latencies: Normal Quantity: Appropriate - Mood Patient's Decription of Mood: "Okay" - Affect Observed Affect: Fair Affect Consistent with: Euthymia - Thought Process Patient's Thought Process: Coherent Thought Content: No Passive Wish, No Suicidal Planning, No Homicidal Ideation, No Paranoid Ideation - Sensorium Experiencing Hallucinations: No, Sensorium is Clear Type of Hallucinations: Visual: No, Auditory: No, Command: No - Level of Consciousness Level of Consciousness: Alert Orientation: Yes Intact, Yes Orientated to Time, Yes Orientated to Place, Yes Orientated to Person - Impulse Control Impulse Control: Tenuous - Insight and Judgement Insight and Judgement: Fair - Group Participation Particating in Group Activities: Yes - Medication Management Medication Management Adherence: Yes Assessment - Assessment Merits Inpatient Hospitalization: Consolidate Improvements, Pending Safe DC Plan Inpatient DSM-IV Dx: schizoaffective d/o; borderline personality d/o. UTI; HTN ; hypercholesteremia; COPD Clinical Impression: 52 y.o. , white female with a Hx of schizoaffective DO, severe PTSD and borderline PD, admitted voluntarily d/t increase in command AH and SIB. Plan - Plan Treatment Plan: Name: BELLE GARCIA Birthdate: 1965 [id number] The patient is being stabilized on a combination of clozapine, duloxetine and gabapentin. Continue inpatient-level treatment. Continued Medication Management: Different Medication Medications: Current Medications Aclidinium [place] (Tudorza Press Mdi(Nf)) 1 puff INH BID [facility] Last Admin: 11/28/17 20:21 Dose: 1 puff Al Hydrox/Mg Hydrox/Simethicone (Maalox Plus*) 30 ml PO Q4H PRN PRN Reason: INDIGESTION Albuterol (Ventolin Hfa Inhaler*) 2 puff INH Q4H [facility] Last Admin: 11/29/17 07:59 Dose: 2 puff Amoxicillin (Amoxicillin Po (*)) 500 mg PO BID [facility] Last Admin: 11/28/17 20:18 Dose: 500 mg Atorvastatin Calcium (Lipitor*) 10 mg PO DAILY [facility] Last Admin: 11/28/17 10:17 Dose: 10 mg Bacitracin (Bacitracin Ointment*) 1 applic TOPICAL TID [facility] Last Admin: 11/28/17 20:44 Dose: Not Given Benztropine Mesylate (Cogentin Tab*) 1 mg PO TID [facility] Last Admin: 11/28/17 20:19 Dose: 1 mg Clozapine (Clozapine Tab*) 100 mg PO QAM [facility] Last Admin: 11/28/17 10:18 Dose: 100 mg Clozapine (Clozapine Tab*) 500 mg PO BEDTIME [facility] Last Admin: 11/28/17 20:18 Dose: 500 mg Device (Nicotine Mouth Piece*) 1 each INH .CARTRIDGE [facility] Last Admin: 11/24/17 10:13 Dose: 1 each Duloxetine HCl (Cymbalta Cap*) 60 mg PO DAILY [facility] Last Admin: 11/28/17 10:18 Dose: 60 mg Gabapentin (Neurontin Cap(*)) 600 mg PO BID [facility] Last Admin: 11/28/17 20:18 Dose: 600 mg Gabapentin (Neurontin Cap(*)) 1,200 mg PO DAILY@1400 [facility] Last Admin: 11/28/17 15:03 Dose: 1,200 mg Ibuprofen (Motrin Tab*) 400 mg PO Q8H PRN PRN Reason: PAIN Last Admin: 11/27/17 15:42 Dose: 400 mg Loperamide HCl (Imodium Cap*) 2 mg PO .SEE INSTRUCTIONS PRN PRN Reason: LOOSE STOOL Lorazepam (Ativan Tab(*)) 0.5 mg PO TID PRN PRN Reason: ANXIETY Last Admin: 11/28/17 16:43 Dose: 0.5 mg Meclizine HCl (Antivert Tab*) 12.5 mg PO Q8HR PRN PRN Reason: DIZZINESS Mometasone Furoate/Formoterol Fumar (Dulera 200/5 Mdi*) 2 puff INH BID [facility] Last Admin: 11/28/17 20:22 Dose: 2 puff Multivitamins (Theragran Tab*) 1 tab PO DAILY [facility] Last Admin: 11/28/17 10:16 Dose: 1 tab Nicotine (Nicotine Inhaler*) 10 mg INH Q2H PRN PRN Reason: CRAVING Last Admin: 11/28/17 18:25 Dose: 10 mg Nicotine (Nicotine Patch 21 Mg/24 Hr*) 1 patch TRANSDERM DAILY [facility] Last Admin: 11/28/17 10:28 Dose: 1 patch Nicotine Polacrilex (Nicotine Gum*) 2 mg PO Q2H PRN PRN Reason: CRAVING Last Admin: 11/28/17 18:25 Dose: 2 mg Olanzapine (Zyprexa Tab*) 5 mg PO BEDTIME [facility] Last Admin: 11/28/17 20:18 Dose: 5 mg Omeprazole (Prilosec Cap*) 20 mg PO DAILY@1700 [facility] Last Admin: 11/28/17 16:42 Dose: 20 mg Pharmacy Profile Note (Nicotine Patch Removal Note*) 1 note PATCH OFF 2100 [facility] Last Admin: 11/28/17 20:44 Dose: 1 note Pindolol (Pindolol(Nf)) 5 mg PO QAM [facility] Last Admin: 11/29/17 09:17 Dose: Not Given Trazodone HCl (Desyrel Tab*) 200 mg PO BEDTIME [facility] Last Admin: 11/28/17 20:19 Dose: 200 mg Vitamin B Complex/Vitamin E (Complex B-100*) 1 tab PO DAILY [facility] Last Admin: 11/28/17 10:15 Dose: 1 tab Warfarin Sodium (Coumadin Tab(*)) 5 mg PO SuMoWeFrSa@1700 [facility] Last Admin: 11/28/17 16:42 Dose: 5 mg Warfarin Sodium (Coumadin Tab(*)) 7.5 mg PO TuTh@1700 [facility] Last Admin: 11/25/17 16:13 Dose: 7.5 mg - Discharge Plan Discharge Plan: [facility]
[2017-11-29] MEDS: Bacitracin OINTMENT* 0.5% 0.5 oz TUBE TOPICAL SCH ×3 (10:57→21:59)
[2017-11-29] MEDS: Nicotine PATCH 21 MG/24 HR* PATCH TRANSDERM SCH (10:57)
[2017-11-29] MEDS: Mometasone/Formoter 200/5 MDI INH SCH ×2 (10:57→21:56)
[2017-11-29] MEDS: Nicotine GUM* 2 MG PO PRN ×3 (11:00→21:58)
[2017-11-29] MEDS: Nicotine Inhaler* 10 MG AMP INH PRN ×4 (11:00→21:57)
[2017-11-29] MEDS: Gabapentin CAP(*) 400 MG PO SCH (13:20)
[2017-11-29] MEDS: Omeprazole CAP* 20 MG PO SCH (16:44)
[2017-11-29] MEDS: Warfarin TAB(*) 5 MG PO SCH (16:44)
[2017-11-29] MEDS: LORazepam TAB(*) 0.5 MG PO PRN (18:38)
[2017-11-29] MEDS: traZODone TAB* 100 MG PO SCH (21:52)
[2017-11-29] MEDS: OLANzapine TAB* 10 MG PO SCH (21:52)
[2017-11-29] MEDS: Nicotine Patch Removal NOTE PATCH OFF SCH (21:53)
[2017-11-30] MEDS: Albuterol HFA INHALER* 8 gm MDI INH SCH ×6 (04:00→19:42)
[2017-11-30] MEDS: Mometasone/Formoter 200/5 MDI INH SCH ×2 (10:54→23:52)
[2017-11-30] MEDS: PTO: Aclidinium POWDER MDI(NF) INH SCH ×2 (10:55→23:52)
[2017-11-30] MEDS: Vitamin THERAPEUTIC TAB PO SCH (10:56)
[2017-11-30] MEDS: Gabapentin CAP(*) 300 MG PO SCH ×2 (10:56→22:49)
[2017-11-30] MEDS: Atorvastatin* 10 MG TAB PO SCH (10:56)
[2017-11-30] MEDS: Amoxicillin PO (*) 500 MG CAP PO SCH ×2 (10:57→22:46)
[2017-11-30] MEDS: CloZAPine TAB* 100 MG TAB PO SCH ×2 (10:58→22:45)
[2017-11-30] MEDS: DULoxetine DR CAP* 30 MG CAP.DR PO SCH (10:58)
[2017-11-30] MEDS: Vitamin B Complex TAB PO SCH (10:58)
[2017-11-30] MEDS: Benztropine TAB* 1 MG PO SCH ×3 (10:58→22:47)
[2017-11-30] MEDS: Bacitracin OINTMENT* 0.5% 0.5 oz TUBE TOPICAL SCH ×3 (11:00→22:45)
[2017-11-30] MEDS: Nicotine PATCH 21 MG/24 HR* PATCH TRANSDERM SCH (11:20)
[2017-11-30] MEDS: PINDOLOL 10 MG PO SCH (11:20)
[2017-11-30] MEDS: Nicotine Inhaler* 10 MG AMP INH PRN ×4 (11:22→23:55)
[2017-11-30] MEDS: Gabapentin CAP(*) 400 MG PO SCH (13:44)
--- NOTE | 2017-11-30 15:15 | PN ---
Subjective - Subjective Service Type: 86956 Hosp care 15 min low complexity Subjective: Varun's , son and his girlfriend visited over the noon hour. Patient reports decreased anxiety in that her 's surgery has been postponed until a dental infection is treated. She states concern for his continued hip pain but also is looking forward to not being home alone. Patient's son and girlfriend reiterated intent to visit her daily, especially when Simon is hospitalized. Met with patient after visiting hours. We discuss importance of having daily goals and routine and she agrees. 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 Patient is able to identify examples of realistic daily goals (clean clothes, call a support person, eat one full meal). She states desire for tentative discharge day on , 12/02. Objective - Appearance Appearance: Obese Dysmorphic Features: Yes Hygiene: Mal-odorous Grooming: Disheveled - Behavior Psychomotor Activities: Abnormal-Increased Exhibits Abnormal Movement: Yes - Attitude and Relatedness Attitude and Relatedness: Cooperative Eye Contact: Good - Speech Quality: Unpressured Latencies: Normal Quantity: Appropriate - Mood Patient's Decription of Mood: "Good" - Affect Observed Affect: Good Affect Consistent with: Euthymia - Thought Process Patient's Thought Process: Coherent, Goal Directed Thought Content: No Passive Wish, No Suicidal Planning, No Homicidal Ideation, No Paranoid Ideation - Sensorium Experiencing Hallucinations: Yes Type of Hallucinations: Visual: No, Auditory: Yes - improving, Command: No - Level of Consciousness Level of Consciousness: Alert Orientation: Yes Intact, Yes Orientated to Time, Yes Orientated to Place, Yes Orientated to Person - Impulse Control Impulse Control: Intact - Insight and Judgement Insight and Judgement: Good - Group Participation Particating in Group Activities: Yes Group Participation Comments: afternoon/evening groups - Medication Management Medication Management Adherence: Yes Assessment - Assessment Merits Inpatient Hospitalization: For Immediate Safety, For Stabilization, Consolidate Improvements, Pending Safe DC Plan Inpatient DSM-IV Dx: schizoaffective d/o; borderline personality d/o. UTI; HTN ; hypercholesteremia; COPD Clinical Impression: 52yo white female with hx of schizoaffective d/o, severe trauma history, borderline personality d/o. Admitted voluntary due to increase in command hallucinations and SIB. Clozapine dose decreased in outpatient setting per her request. According to outpatient psychiatrist, she was asymptomatic at 600mg. Patient agrees to titrate dose in hospital setting. She merits hospitalization for immediate safety and stabilization. Plan - Plan Treatment Plan: Name: VARUN GARCIA Birthdate: 1965 [id number] continue acute intensive psychiatric treatment. encourage daytime activity and proper sleep hygiene. continue current medications. patient remains on 15 min observation due to fall risk. Continued Medication Management: Different Medication Medications: Current Medications Aclidinium [place] (Tudorza Pressair Mdi(Nf)) 1 puff INH BID [facility] [place] Last Admin: 11/30/17 10:55 Dose: 1 puff Al Hydrox/Mg Hydrox/Simethicone (Maalox Plus*) 30 ml PO Q4H PRN PRN Reason: INDIGESTION Albuterol (Ventolin Hfa Inhaler*) 2 puff INH Q4H [facility] [place] Last Admin: 11/30/17 13:45 Dose: 2 puff Amoxicillin (Amoxicillin Po (*)) 500 mg PO BID [facility] [place] Last Admin: 11/30/17 10:57 Dose: 500 mg Atorvastatin Calcium (Lipitor*) 10 mg PO DAILY [facility] Last Admin: 11/30/17 10:56 Dose: 10 mg Bacitracin (Bacitracin Ointment*) 1 applic TOPICAL TID [facility] [place] Last Admin: 11/30/17 13:46 Dose: 1 applic Benztropine Mesylate (Cogentin Tab*) 1 mg PO TID [facility] [place] Last Admin: 11/30/17 13:44 Dose: 1 mg Clozapine (Clozapine Tab*) 100 mg PO QAM [facility] [place] Last Admin: 11/30/17 10:58 Dose: 100 mg Clozapine (Clozapine Tab*) 500 mg PO BEDTIME [facility] Last Admin: 11/29/17 21:51 Dose: 500 mg Device (Nicotine Mouth Piece*) 1 each INH .CARTRID[place] [facility] [place] Last Admin: 11/24/17 10:13 Dose: 1 each Duloxetine HCl (Cymbalta Cap*) 60 mg PO DAILY [facility] [place] Last Admin: 11/30/17 10:58 Dose: 60 mg Gabapentin (Neurontin Cap(*)) 600 mg PO BID [facility] [place] Last Admin: 11/30/17 10:56 Dose: 600 mg Gabapentin (Neurontin Cap(*)) 1,200 mg PO DAILY@1400 [facility] Last Admin: 11/30/17 13:44 Dose: 1,200 mg Ibuprofen (Motrin Tab*) 400 mg PO Q8H PRN PRN Reason: PAIN Last Admin: 11/27/17 15:42 Dose: 400 mg Loperamide HCl (Imodium Cap*) 2 mg PO .SEE INSTRUCTIONS PRN PRN Reason: LOOSE STOOL Lorazepam (Ativan Tab(*)) 0.5 mg PO TID PRN PRN Reason: ANXIETY Last Admin: 11/29/17 18:38 Dose: 0.5 mg Meclizine HCl (Antivert Tab*) 12.5 mg PO Q8HR PRN PRN Reason: DIZZINESS Mometasone Furoate/Formoterol Fumar (Dulera 200/5 Mdi*) 2 puff INH BID [facility] [place] Last Admin: 11/30/17 10:54 Dose: 2 puff Multivitamins (Theragran Tab*) 1 tab PO DAILY [facility] Last Admin: 11/30/17 10:56 Dose: 1 tab Nicotine (Nicotine Inhaler*) 10 mg INH Q2H PRN PRN Reason: CRAVING Last Admin: 11/30/17 11:22 Dose: 10 mg Nicotine (Nicotine Patch 21 Mg/24 Hr*) 1 patch TRANSDERM DAILY [facility] Last Admin: 11/30/17 11:20 Dose: 1 patch Nicotine Polacrilex (Nicotine Gum*) 2 mg PO Q2H PRN PRN Reason: CRAVING Last Admin: 11/29/17 21:58 Dose: 2 mg Olanzapine (Zyprexa Tab*) 5 mg PO BEDTIME [facility] Last Admin: 11/29/17 21:52 Dose: 5 mg Omeprazole (Prilosec Cap*) 20 mg PO DAILY@1700 [facility] [place] Last Admin: 11/29/17 16:44 Dose: 20 mg Pharmacy Profile Note (Nicotine Patch Removal Note*) 1 note PATCH OFF 2100 [facility] Last Admin: 11/29/17 21:53 Dose: 1 note Pindolol (Pindolol(Nf)) 5 mg PO QAM [facility] [place] Last Admin: 11/30/17 11:20 Dose: 5 mg Trazodone HCl (Desyrel Tab*) 200 mg PO BEDTIME [facility] [place] Last Admin: 11/29/17 21:52 Dose: 200 mg Vitamin B Complex/Vitamin E (Complex B-100*) 1 tab PO DAILY [facility] [place] Last Admin: 11/30/17 10:58 Dose: 1 tab Warfarin Sodium (Coumadin Tab(*)) 5 mg PO SuMoWeFrSa@1700 [facility] Last Admin: 11/29/17 16:44 Dose: 5 mg Warfarin Sodium (Coumadin Tab(*)) 7.5 mg PO TuTh@1700 [facility] [place] Last Admin: 11/25/17 16:13 Dose: 7.5 mg - Discharge Plan Discharge Plan: Outpatient Follow Up Outpatient Program: [facility]
[2017-11-30] MEDS: Nicotine GUM* 2 MG PO PRN ×2 (15:25→18:11)
[2017-11-30] MEDS: Omeprazole CAP* 20 MG PO SCH (16:11)
[2017-11-30] MEDS: LORazepam TAB(*) 0.5 MG PO PRN ×2 (16:11→23:55)
[2017-11-30] MEDS: Warfarin TAB(*) 7.5 MG PO SCH (16:11)
[2017-11-30] MEDS: traZODone TAB* 100 MG PO SCH (22:46)
[2017-11-30] MEDS: OLANzapine TAB* 10 MG PO SCH (22:47)
[2017-11-30] MEDS: Ibuprofen TAB* 400 MG PO PRN (22:55)
[2017-11-30] MEDS: Nicotine Patch Removal NOTE PATCH OFF SCH (22:55)
[2017-12-01] MEDS: Albuterol HFA INHALER* 8 gm MDI INH SCH ×6 (04:00→20:41)
[2017-12-01 08:58] VITALS: BP 101/43
[2017-12-01] MEDS: PTO: Aclidinium POWDER MDI(NF) INH SCH ×2 (09:18→21:26)
[2017-12-01] MEDS: Nicotine PATCH 21 MG/24 HR* PATCH TRANSDERM SCH (09:19)
[2017-12-01] MEDS: Mometasone/Formoter 200/5 MDI INH SCH ×2 (09:20→21:27)
[2017-12-01] MEDS: DULoxetine DR CAP* 30 MG CAP.DR PO SCH (09:21)
[2017-12-01] MEDS: Benztropine TAB* 1 MG PO SCH ×3 (09:21→21:29)
[2017-12-01] MEDS: Vitamin THERAPEUTIC TAB PO SCH (09:21)
[2017-12-01] MEDS: Gabapentin CAP(*) 300 MG PO SCH ×2 (09:22→21:30)
[2017-12-01] MEDS: CloZAPine TAB* 100 MG TAB PO SCH ×2 (09:22→21:30)
[2017-12-01] MEDS: Vitamin B Complex TAB PO SCH (09:23)
[2017-12-01] MEDS: Atorvastatin* 10 MG TAB PO SCH (09:23)
[2017-12-01] MEDS: Amoxicillin PO (*) 500 MG CAP PO SCH ×2 (09:23→21:30)
[2017-12-01] MEDS: Bacitracin OINTMENT* 0.5% 0.5 oz TUBE TOPICAL SCH ×3 (09:24→21:30)
[2017-12-01] MEDS: PINDOLOL 10 MG PO SCH (09:24)
[2017-12-01] MEDS: Nicotine GUM* 2 MG PO PRN ×4 (12:38→19:07)
[2017-12-01] MEDS: Nicotine Inhaler* 10 MG AMP INH PRN ×4 (12:38→22:04)
[2017-12-01] MEDS: Gabapentin CAP(*) 400 MG PO SCH (14:26)
[2017-12-01] MEDS: Omeprazole CAP* 20 MG PO SCH (16:04)
[2017-12-01] MEDS: LORazepam TAB(*) 0.5 MG PO PRN (16:05)
[2017-12-01] MEDS: Warfarin TAB(*) 5 MG PO SCH (16:05)
[2017-12-01] MEDS: OLANzapine TAB* 10 MG PO SCH (21:28)
[2017-12-01] MEDS: traZODone TAB* 100 MG PO SCH (21:28)
[2017-12-01] MEDS: Nicotine Patch Removal NOTE PATCH OFF SCH (21:38)
[2017-12-02] MEDS: Albuterol HFA INHALER* 8 gm MDI INH SCH ×4 (07:46→16:14)
[2017-12-02] MEDS: Nicotine PATCH 21 MG/24 HR* PATCH TRANSDERM SCH (09:00)
[2017-12-02] MEDS: PINDOLOL 10 MG PO SCH (09:00)
[2017-12-02] MEDS: DULoxetine DR CAP* 30 MG CAP.DR PO SCH (09:00)
[2017-12-02] MEDS: Vitamin THERAPEUTIC TAB PO SCH (09:01)
[2017-12-02] MEDS: CloZAPine TAB* 100 MG TAB PO SCH (09:01)
[2017-12-02] MEDS: Atorvastatin* 10 MG TAB PO SCH (09:01)
[2017-12-02] MEDS: Amoxicillin PO (*) 500 MG CAP PO SCH (09:01)
[2017-12-02] MEDS: Vitamin B Complex TAB PO SCH (09:01)
[2017-12-02] MEDS: Gabapentin CAP(*) 300 MG PO SCH (09:01)
[2017-12-02] MEDS: Bacitracin OINTMENT* 0.5% 0.5 oz TUBE TOPICAL SCH ×2 (09:02→13:41)
[2017-12-02] MEDS: Benztropine TAB* 1 MG PO SCH ×2 (09:02→14:15)
[2017-12-02] MEDS: PTO: Aclidinium POWDER MDI(NF) INH SCH (09:17)
[2017-12-02] MEDS: Mometasone/Formoter 200/5 MDI INH SCH (09:18)
[2017-12-02] MEDS: Nicotine Inhaler* 10 MG AMP INH PRN ×2 (13:40→16:17)
[2017-12-02] MEDS: Gabapentin CAP(*) 400 MG PO SCH (13:40)
[2017-12-02] MEDS: LORazepam TAB(*) 0.5 MG PO PRN (13:41)
[2017-12-02] MEDS: Nicotine GUM* 2 MG PO PRN (16:17)
[2017-12-02] MEDS: Omeprazole CAP* 20 MG PO SCH (17:43)
[2017-12-02] MEDS: Warfarin TAB(*) 7.5 MG PO SCH (17:43)
[2017-12-02] MEDS ORDERED: OLANzapine TAB* 5 MG ONE (18:29)
[2017-12-02] MEDS ORDERED: Benztropine TAB* 1 MG ONE (18:29)
--- NOTE | 2017-12-04 04:32 | DS ---
CC: [facility]; Vero Bradley MD * DISCHARGE SUMMARY: DATE OF ADMISSION: 11/11/17 DATE OF DISCHARGE: 12/02/17 SUPERVISING PSYCHIATRIST: Robles Yuen MD * (DICTATED BY JEAN PAUL FERREIRA NP) DISCHARGE DIAGNOSES: 1. Schizophrenia. 2. Posttraumatic stress disorder. 3. Borderline personality disorder. 4. Tobacco use disorder. Please see H and P for full psychiatric history and medical history. CONDITION AT TIME OF DISCHARGE: Improved. The patient reports desire for discharge. She states that she is having mild auditory hallucinations, which are much improved and no longer command in nature. She and her have discussed treatment planning with this verse writer and the pillowcase cleaner, Chata Delatorre. The patient reports agreement to pursue a right routine at home to prevent isolation and decompensation. The patient plans to return to [facility] to re-engage in therapy and outpatient groups. During the course of the stay, her , Simon, has utilized as a resource to obtain a commode for the patient to use in the living room to avoid having to use the stairs multiple times a day. He has also obtained a rolling walker to help her with ambulation. The patient reports that both of these are helpful to her here in the mental health unit. Medications were reviewed by nursing staff and this verse writer also spoke with her visiting nurse and notified her of the patient's discharge. There were no changes in the patient's Coumadin dose and her INR remained consistent after the patient was compliant with Coumadin dosing. MENTAL STATUS EXAM: The patient is sitting in chair and ambulates with walker and does not need assistance from staff. She is an obese middle-aged female with multiple open wounds on her forearms that are covered with bacitracin and gauze and Telfa. She is noted to have involuntary jaw movements , which are consistent with previous admissions. She is no longer having large body movements in her arms and legs as she did at the beginning of this admission. She is alert and oriented. Her speech is soft and articulate. Her eye contact is good. Her mood is "okay" and her affect is blunted. Thought process is circumstantial, logical, coherent. Thought content positive for audio hallucination. She denies SI. She endorses chronic passive wish. She denies urges for SIB in this setting. Her insight and judgment are fair. Impulse control is good in this setting, tenuous at home. DISCHARGE INSTRUCTIONS GIVEN TO THE PATIENT: A. Medications will be between psychiatric and those that are prescribed by her primary care provider, Dr. Bradley. 1. Bacitracin topically bilateral arms. 2. Benztropine 1 mg p.o. daily at bedtime. 3. Clozapine 100 mg p.o. q.a.m. and 500 mg p.o. q.h.s. 4. Duloxetine 60 mg p.o. daily. 5. Gabapentin 600 mg in a.m. and at bedtime. 6. Gabapentin 1200 mg at 2 p.m. 7. Olanzapine 5 mg p.o. q.h.s. 8. Trazodone 200 mg p.o. q.h.s. 9. Lorazepam 0.5 mg 1 p.o. daily p.r.n. anxiety. Those prescriptions were electronically transmitted to [facility] in order for them to be delivered to [facility] per the patient's request. The following medications will be continued by her primary care provider, Dr. Bradley. 1. Tudorza Pressair 400 mcg. 2. Albuterol inhaler 2 puffs q.4 hours. 3. Lipitor 10 mg p.o. daily. 4. B complex vitamins 1 tab p.o. daily. 5. Symbicort 160/4.5 two puffs b.i.d. 6. Nexium 40 mg p.o. 1700. 7. Dulera 200/5 two puffs b.i.d. 8. Pindolol 5 mg p.o. q.a.m. 9. Coumadin 5 mg p.o. on Wednesday, Wednesday, Wednesday, Wednesday, Wednesday at 5 p.m. ; Coumadin 7.5 mg p.o. on Tuesdays and at 5 p.m. B. Diet: Regular. C. Ambulation as tolerated, may use walker. D. Tobacco cessation was strongly urged by staff and respiratory therapy. The patient has declined offer of nicotine replacement. E. There are no studies pending at time of discharge. F. Followup care: The patient will follow up with [facility] and she has an intake appointment on 12/03/17 at 12:30 p.m. She will also be referred to [facility] for intensive group therapy. Visiting nurse service, the patient's primary nurse, Jean Paul Kc, was notified of the patient's discharge. Dr. Vero Bradley, the patient has an appointment on 12/07/17 at 11:20 on the [facility]. G. Substance abuse followup: Not applicable. HOSPITAL COURSE - PART A: Reason for admission: The patient presented to the emergency department with complaints of command hallucinations telling her to and harm herself. She agreed to voluntary admission to adult [facility]. She was placed on 15-minute checks for safety, encouraged to participate in supportive milieu, individual sessions with staff and psychoeducational groups. While in the emergency department, she was cooperative with labs. Her CBC showed an RDW of 16, lymph percent is 24.7, mono percent is 9.3. Her ANC was normal and has been monitored at least monthly due to Clozaril treatment. INR upon arrival was 1.44, PTT was 58.1. Chemistry: Glucose was 113. Alkaline phosphatase 105. Triglycerides 126, cholesterol 147, LDL 84, and HDL 37.9. TSH 5.43. Her vitamin B and vitamin D levels were tested and noted to be within normal limits. Hemoglobin A1c was high at 6.7. Urinalysis was indicative of urinary tract infections, the patient identified having symptoms and was agreeable to and treated with amoxicillin. Her toxicology was negative for salicylates, acetaminophen, alcohol and her urine drug screen was negative. Her clozapine levels were tested and noted to be subtherapeutic. HOSPITAL COURSE - PART B: Psychiatric treatment rendered: The patient reported that she and her outpatient psychiatrist, Dr. Oz Ortiz, were concerned about the side effects of clozapine treatment and that he was tapering clozapine for this reason. The patient reports since the onset of decreasing clozapine dosing, she was experiencing command hallucinations telling her to harm herself and also upon interview, it was noteworthy that she was experiencing paranoid ideation. The patient reported significant stressors related to weakness and shakiness. She states that over the past 10 months, she has been increasingly isolative and spends up to 24 hours a day on her couch at home. She has not been attending appointments. She has not been caring for herself. She goes weeks to months at a time without performing ADLs. She smokes an exorbitant amount and when she has command hallucinations, she has historically burnt her arms with her cigarettes. This verse writer spoke with her outpatient psychiatrist, Dr. Ortiz. He verified that he was not concerned about clozapine treatment and identified that she did best when on a total of 600 mg daily. He states that as far as he knows, it was Belle's idea to change the clozapine and he was trying to avoid doing so. He notified verse writer of the patient's pending administrative discharge from [facility] program due to her absence for up to [address] Ortiz stated that the patient was more than welcome to return to [facility] for individual therapy and medication management. This verse writer discussed the patient's presentation and treatment after receiving phone call with her [facility] nurse and the patient's primary care provider was also included in treatment and discharge planning. While on the unit, this verse writer requested consultation with Neurology. The patient was seen by Dr. Radha Choi, please see full consultation report. 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 The patient had a brain CT and this was unremarkable. The patient was encouraged by neurologist, this verse writer, and her primary care provider to obtain an MRI, but the patient refuses to do so due to fear of MRIs and claustrophobic spaces. The patient was evaluated by Physical Therapy and Occupational Therapy. It was noted that she was able to perform difficult movements independently and it is likely that her weakness and movements were psychogenic. The patient was encouraged by treatment team and staff to increase strength by ambulating often. She was encouraged to participate full in programming and she was pleasant and cooperative when in groups. The patient was encouraged to increase sleep hygiene. She often slept until noon and was awake till midnight despite prompts from staff for her to attempt to wake earlier. The patient was given feedback and information about her improvement physically on the unit, encouraged to decrease or continue cessation of smoking. Family meeting was held per family request. This verse writer, social insurance administrator, patient, her , and her real estate recruiter, Chata Delatorre were present and discussed all of the above including barriers to the patient's functioning at home. The patient perseverated on "being kicked out of [facility]" despite multiple attempts to reframe this as being administratively discharged because of her lack of attendance. The patient also reported multiple times to multiple staffs that her , Simon, has told her "if they don't fix you, I am just going to drive you down to [place]." The patient states that she does not want to go to [place] and she feels comfortable returning home when she is ready. Week of 11/29/17, the patient was presented by treatment team with encouragement to identify discharge date due to acute nature of psychiatric setting. The patient decided upon , the . Throughout the week, it was noted that the patient was increasingly ambulating without difficulty. She was encouraged to perform ADLs, but declined to do so. She states she would rather do it at home with the assistance of her home health aide. We discussed ideas to improve her daily routines. The patient had reported frustration about the lack of assistance received from her home health aide. The patient was given written information about some tasks that she could ask her home health aide to do. On day of discharge, the patient denied suicidal ideation. She denies urges for self-injurious behavior. She was able to identify progress made while in this hospital setting. She reported mild ambivalence about returning home and continuing with isolation and decreased activities. The patient was strongly encouraged to utilize her pillowcase cleaner, her VNS nurse, friends and family as supports. It was noted that the patient's son, his girlfriend, and the patient's visited habitually during her inpatient stay. IMPRESSION: Belle is a 52-year-old female with chronic self-harm behavior, chronic psychosis, and many psychiatric hospitalizations, self-harm and suicide attempts. She presented with multiple somatic complaints and most of these were able to be attributed to functional movements and psychogenic movements. It is noteworthy that her presentation and treatment course for this hospitalization was strikingly similar to her last admission in July 2016. On 12/02/17, the patient is cleared for release. She was stable and in behavioral control. She is noted to improve clinically. We have decreased the Zyprexa for concern of movement disorders. We have increased the clozapine back to the dose that she has historically done well on. Blood work on included INR of 2.69. Her CBC on that date was unchanged. Clozaril [facility] program was completed by this verse writer. Please see above for other laboratory data. The patient remains at chronic high risk for suicide based on her conditions and history. Risk is low at the time of discharge and her somatic symptoms have declined greatly. Belle has done very well on the unit with support and prompting. It is my opinion that she does best when empowered to be more independent. JEAN PAUL FERREIRA, DEREJE [id number]/[facility] #: [id number] JULIANA
== END 2017-12-02 18:45 | disposition home health service (06) | DRG 885 ==
LOC: ED 19:30 → BSU 11-11 01:22
PROVIDERS: ADMIT Psychiatry & Neurology Psychiatry; ATTEND Psychiatry & Neurology Psychiatry
PROC: GZHZZZZ Group Psychotherapy (ICD-10-PCS; principal; 2017-11-25)
DX: F25.9 Schizoaffective disorder, unspecified (principal); I48.91 Unspecified atrial fibrillation; M32.9 Systemic lupus erythematosus, unspecified; G24.01 Drug induced subacute dyskinesia; E66.9 Obesity, unspecified; E78.00 Pure hypercholesterolemia, unspecified; N39.0 Urinary tract infection, site not specified; F43.10 Post-traumatic stress disorder, unspecified; F60.3 Borderline personality disorder; J44.9 Chronic obstructive pulmonary disease, unspecified; K21.9 Gastro-esophageal reflux disease without esophagitis; F17.210 Nicotine dependence, cigarettes, uncomplicated; Z62.810 Personal history of physical and sexual abuse in childhood; F32.9 Major depressive disorder, single episode, unspecified; K58.9 Irritable bowel syndrome, unspecified; F41.0 Panic disorder [episodic paroxysmal anxiety]; Z56.0 Unemployment, unspecified; Z87.01 Personal history of pneumonia (recurrent); Z79.01 Long term (current) use of anticoagulants; Z91.5 Personal history of self-harm; Z86.711 Personal history of pulmonary embolism; Z68.32 Body mass index [BMI] 32.0-32.9, adult; Z86.718 Personal history of other venous thrombosis and embolism; Z85.118 Personal history of other malignant neoplasm of bronchus and lung; Z88.8 Allergy status to other drugs, medicaments and biological substances; Z81.8 Family history of other mental and behavioral disorders; Z81.1 Family history of alcohol abuse and dependence; Z81.4 Family history of other substance abuse and dependence
CPT/HCPCS: 36415; 70450; 80053; 80061; 80159; 80307; 80320; 80329; 81003; 81015; 82140; 82306; 82607; 82652; 83036; 83519; 83520; 84443; 85025; 85610; 85730; 86255; 86256; 87077; 87086; 87186; 90853; 99222; 99231; 99232; 99233; 99238; 99285; 99406; A9270-GY; G0480

== ENCOUNTER 2018-01-11 11:51 | Day surgery (SDC) | payer MEDICARE, MEDICAID ==
[2018-01-11] MEDS ORDERED: Lidocaine 1% MPF* 2 ML VIAL ONE (12:55)
[2018-01-11] MEDS ORDERED: Tetracaine 0.5% OPTH.SOL 4 ML* 1 DROP BTL ONE (12:55)
[2018-01-11] MEDS ORDERED: Tropicamide 1% OPTH.SOL* BTL ONE (12:55)
[2018-01-11] MEDS ORDERED: Ketorolac 0.5% OPHTH (NF) 0.5 % 5 ML BTL ONE (12:55)
[2018-01-11] MEDS ORDERED: Cyclopentolate 1% OPTH.SOL* 2 ML BTL ONE (12:55)
[2018-01-11] MEDS ORDERED: Neomycin/Polymy/Dex OPHTH.OIN* 3.5 GM ONE (12:55)
[2018-01-11] MEDS ORDERED: Phenylephrine 2.5% OPTH.SOL* 2 ML BTL ONE (12:55)
[2018-01-11] MEDS ORDERED: Phenylephr/Ketorolac 1%/0.3% OPH DROP BTL ONE (14:28)
[2018-01-11] MEDS ORDERED: Albuterol 2.5 MG/3 ML NEB.SOL* (0.083%) ONE (14:36)
[2018-01-11] MEDS ORDERED: Propofol* 10 MG/ML 20 ML BTL IV PUSH ONE (14:54)
[2018-01-11] MEDS ORDERED: Lidocaine 2% PF * 5 ML VIAL ONE (14:54)
--- NOTE | 2018-01-11 16:05 | OP ---
DATE OF OPERATION/DATE OF DICTATION: 01/11/2018 - [facility] DATE OF : 1965. SURGEON: Dr. Umberto Hernandez. LECTURER IN MARKETING: None. ANESTHESIA: Topical with intravenous sedation. PRE-OP DIAGNOSIS: Cataract, right eye. POST-OP DIAGNOSIS: Cataract, right eye. OPERATIVE PROCEDURE: Phacoemulsification and cataract extraction with posterior chamber intraocular lens implant, right eye. COMPLICATIONS: None. BLOOD LOSS: None. DESCRIPTION OF PROCEDURE: The patient was brought to the operating room and received a small amount of intra-venous sedation. A drop of Tetracaine was placed in her right eye. She was prepped and draped in the usual sterile fashion for ophthalmic surgery and attention was directed to the right eye where a speculum was placed. A paracentesis was created at the 11 o'clock position and 0.1 cc of 1 percent preservative-free Lidocaine was injected into the anterior chamber followed by DisCoVisc. The eye was digitally stabilized while a 2.75 mm keratome was used to create a triplanar clear corneal incision at the 9 o'clock position. A continuous curvilinear capsulorrhexis was created with a cystotome and Utrata forceps. BSS on a cannula was used to hydrodissect the lens from the capsule. Phacoemulsification was performed in a divide-and- conquer technique to create four fragments which were removed. Residual cortical material was removed with irrigation and aspiration. DisCoVisc was used to inflate the capsular bag and an AUOOTO 11.0 diopter lens was folded and inserted into the capsular bag. DisCoVisc was removed using irrigation and aspiration. BSS on a cannula was used to hydrate the corneal stroma and seal the wound. At the end of the case the pupil was round and the lens was centered. The eye was of normal pressure and the wound was water tight. The speculum was removed and topical Maxitrol ointment was placed on the surface of the eye. The eye was closed, patched and shielded and the patient was sent to the recovery room in stable condition with post operative instructions and follow-up appointment given. [id number]/[facility] #: [id number] MTDD
[2018-01-17] MEDS ORDERED: Buffered Lidocaine 0.9% SYRIN* 5 ML/SYR SYRINGE INTRADERM ONE (11:48)
[2018-01-18] MEDS ORDERED: Acetaminophen TAB* 325 MG PO PRN (05:00)
[2018-01-18 12:01] VITALS: BP 106/59
== END 2018-01-11 15:35 | disposition home or self-care (01) ==
LOC: OREAST 11:51
PROVIDERS: ATTEND Ophthalmology
DX: H25.11 Age-related nuclear cataract, right eye (principal); J44.9 Chronic obstructive pulmonary disease, unspecified; F17.210 Nicotine dependence, cigarettes, uncomplicated; Z86.711 Personal history of pulmonary embolism; Z79.01 Long term (current) use of anticoagulants; I47.1 Supraventricular tachycardia; F20.9 Schizophrenia, unspecified
CPT/HCPCS: A9270-GY; C9447; J2704; V2632

== ENCOUNTER 2018-01-18 09:35 | Day surgery (SDC) | payer MEDICARE, MEDICAID ==
[2018-01-11 15:22] VITALS: BP 135/82
[~2018-01-18 09:35] MED LIST: Acetaminophen TAB* 325 MG PO PRN; Buffered Lidocaine 0.9% SYRIN* 5 ML/SYR SYRINGE INTRADERM ONE
[2018-01-18] MEDS ORDERED: Ketorolac 0.5% OPHTH (NF) 0.5 % 5 ML BTL ONE (10:08)
[2018-01-18] MEDS ORDERED: Lidocaine 1% MPF* 2 ML VIAL ONE (10:08)
[2018-01-18] MEDS ORDERED: Phenylephrine 2.5% OPTH.SOL* 2 ML BTL ONE (10:08)
[2018-01-18] MEDS ORDERED: Neomycin/Polymy/Dex OPHTH.OIN* 3.5 GM ONE (10:08)
[2018-01-18] MEDS ORDERED: Tropicamide 1% OPTH.SOL* BTL ONE (10:08)
[2018-01-18] MEDS ORDERED: Tetracaine 0.5% OPTH.SOL 4 ML* 1 DROP BTL ONE (10:08)
[2018-01-18] MEDS ORDERED: Cyclopentolate 1% OPTH.SOL* 2 ML BTL ONE (10:08)
[2018-01-18] MEDS ORDERED: Midazolam* 1 MG/ML 2 ML VIAL (2 MG) ONE ×3 (11:01→11:32)
[2018-01-18] MEDS ORDERED: fentaNYL* 50 MCG/ML 2 ML VIAL (100 MCG VIAL) ONE (11:22)
[2018-01-18] MEDS ORDERED: Phenylephr/Ketorolac 1%/0.3% OPH DROP BTL ONE (11:37)
--- NOTE | 2018-01-18 15:35 | OP ---
DATE OF OPERATION/DATE OF DICTATION: 01/18/2018 - [facility] DATE OF : 1965. SURGEON: Dr. Umberto Hernadnez. DATA WAREHOUSE DEVELOPER: None. ANESTHESIA: Topical with intravenous sedation. PRE-OP DIAGNOSIS: Cataract, left eye. POST-OP DIAGNOSIS: Cataract, left eye. OPERATIVE PROCEDURE: Phacoemulsification and cataract extraction with posterior chamber intraocular lens implant, left eye. COMPLICATIONS: None. BLOOD LOSS: None. DESCRIPTION OF PROCEDURE: The patient was brought to the operating room and received a small amount of intravenous sedation. A drop of Tetracaine was placed in her left eye. She was prepped and draped in the usual sterile fashion for ophthalmic surgery and attention was directed to the left eye where a speculum was placed. A paracentesis was created at the 5 o'clock position and 0.1 cc of 1 percent preservative-free Lidocaine was injected into the anterior chamber followed by DisCoVisc. The eye was digitally stabilized while a 2.75 mm keratome was used to create a triplanar clear corneal incision at the 3 o'clock position. A continuous curvilinear capsulorrhexis was created with a cystotome and Utrata forceps. BSS on a cannula was used to hydrodissect the lens from the capsule. Phacoemulsification was performed in a divide-and- conquer technique to create four fragments which were removed. Residual cortical material was removed with irrigation and aspiration. DisCoVisc was used to inflate the capsular bag and an AUOOTO 11.0 diopter lens was folded and inserted into the capsular bag. DisCoVisc was removed using irrigation and aspiration. BSS on a cannula was used to hydrate the corneal stroma and seal the wound. At the end of the case the pupil was round and the lens was centered. The eye was of normal pressure and the wound was water tight. The speculum was removed and topical Maxitrol ointment was placed on the surface of the eye. The eye was closed, patched and shielded and the patient was sent to the recovery room in stable condition with post operative instructions and follow-up appointment given. [id number]/[facility] #: [id number] MTDD
== END 2018-01-18 11:44 | disposition home or self-care (01) ==
LOC: OREAST 09:35
PROVIDERS: ATTEND Ophthalmology
DX: H25.11 Age-related nuclear cataract, right eye (principal); J44.9 Chronic obstructive pulmonary disease, unspecified; F41.8 Other specified anxiety disorders; K21.9 Gastro-esophageal reflux disease without esophagitis; F17.210 Nicotine dependence, cigarettes, uncomplicated; Z85.118 Personal history of other malignant neoplasm of bronchus and lung; I47.1 Supraventricular tachycardia; Z79.01 Long term (current) use of anticoagulants
CPT/HCPCS: A9270-GY; C9447; J2250; J3010; V2632

== ENCOUNTER → 2019-07-14 08:42 | Day surgery (SDC) | payer MEDICARE, MEDICAID ==
--- NOTE | 2019-06-14 19:46 | HP ---
PREOPERATIVE HISTORY AND PHYSICAL: DATE OF SURGERY/ADMISSION: 06/23/19 - [facility] DATE OF OFFICE VISIT/ENCOUNTER: 06/14/19 ATTENDING SURGEON: Joan Siddiqi MD.* (DICTATED BY TISH DURBIN) PROCEDURE: Left wrist carpal tunnel release, left ulnar nerve decompression at the elbow. HISTORY OF PRESENT ILLNESS: This is a 54-year-old disabled female who is complaining of symptoms including numbness, tingling, and occasional pain in her left hand for the past 6 months. She reports numbness and tingling primarily in the pinky and the ring finger but sometimes it travels into the middle finger. She notices at various times throughout the day particularly when she is leaning on her left elbow in the car on the console. She denies any injury to the left upper extremity. This is her nondominant hand. She had an EMG nerve conduction study, which showed an ulnar nerve compression at the elbow. She is also clinically presenting with carpal tunnel syndrome on the left. She has consented to proceed with surgical intervention for both of these problems. The patient has COPD and is often times in a wheelchair. She can walk short distances but has trouble secondary to breathing issues. She also has history of 2 pulmonary embolisms, and she is positive for lupus anticoagulant. We will get clearance from her primary care physician Dr. Fitzgerald prior to proceeding the surgery. We will plan on having her stop warfarin prior to surgery per direction of Dr. Fitzgerald. PAST MEDICAL HISTORY: 1. History of pulmonary embolism x2. 2. Positive for lupus anticoagulant. 3. History of lung cancer. 4. COPD. 5. GERD. 6. Anxiety/depression. 7. Asthma. 8. History of diverticulitis. 9. Hiatal hernia. 10. Schizoaffective disorder. PAST SURGICAL HISTORY: 1. Removal of one-third of right lung. 2. Cholecystectomy and umbilical hernia repair. 3. Low back surgery x2. 4. Intervertebral disks. CURRENT MEDICATIONS: 1. Anoro Ellipta 62.5/25 mcg per inhalation, 1 inhalation daily. 2. Atenolol 25 mg 1 by mouth 2 times a day as needed for rapid heart rate. 3. Austedo 6 mg twice daily. 4. Benztropine mesylate 1 mg daily. 5. Celecoxib 200 mg 1 capsule twice a day p.r.n. joint pain. 6. Cholestyramine 4 mg as needed for nausea. 7. Clozapine 100 mg 1 tab in the a.m. and 5 q.h.s. 8. Cyproheptadine HCl 4 mg before dinner. 9. Duloxetine HCl 30 mg daily. 10. Duloxetine HCl 60 mg daily. 11. Hemp extract oil 4 pumps b.i.d. 12. Ipratropium bromide 0.02% 1 vial in nebulizer with additional vial of albuterol sulfate. 13. Levalbuterol HCl 0.31 mg/3 mL 1 unit in nebulizer q.4 hours as needed for shortness of breath. 14. Lipitor 10 mg daily. 15. Loperamide HCl 2 mg as needed. 16. Nexium 40 mg 1 daily with dinner. 17. Oxygen 4 L per minute at night and p.r.n. during the day. 18. ProAir HFA inhaler 2 puffs q.4 hours p.r.n. 19. RA B-complex with B12 one tab daily. 20. Ranitidine HCl 150 mg daily as needed for heartburn. 21. Senna 8.6 mg 2 tabs every day for constipation. 22. Tizanidine HCl 4 mg daily as needed for muscle spasm. 23. Trazodone HCl 100 mg every night. 24. Warfarin sodium 4 mg daily or as directed. ALLERGIES: LATUDA, causes anaphylaxis. FAMILY MEDICAL HISTORY: Diabetes, heart disease, hypertension, cancer. SOCIAL HISTORY: The patient is disabled. She lives with her . She is a current smoker, a pack per day and has smoked for 40 years. She denies illicit drug use and does not drink alcohol. REVIEW OF SYSTEMS: Positive for aforementioned issues in the patient's medical history. Negative for other general, cephalic, cardiovascular, respiratory, GI , , other musculoskeletal, integumentary, endocrine, neurologic, and hematologic symptoms. Infectious disease: Negative for MRSA, hepatitis C, HIV. PHYSICAL EXAMINATION GENERAL: Well-developed, well-nourished female, in no acute distress, presents in a wheelchair today. VITAL SIGNS: Height 5 feet 10 inches, weight 223 pounds. Pulse rate 70, blood pressure 110/70. HEENT: Normocephalic, atraumatic. Pupils are equal, round, and reactive to light and accommodation. Extraocular movements are intact. Throat is clear. NECK: Supple. No palpable lymph nodes. PULMONARY: Lungs are clear to auscultation bilaterally. No wheezes, rales, or rhonchi. CARDIOVASCULAR: Regular rate and rhythm. S1, S2. No murmurs, rubs, or gallops. No edema. ABDOMEN: Positive bowel sounds, soft, nontender. NEUROLOGICAL: Alert and oriented x3. Cranial nerves II through XII are intact. Sensation is intact to light touch. MUSCULOSKELETAL: On exam of her left upper extremity, there is no visible interosseous or thenar wasting, but there is weakness in both thumb abduction and finger abduction. She also had decreased contract agent strength. Negative Tinel's at the elbow but positive Tinel's at the median nerve at the wrist. She has a positive median nerve compression test and a positive Phalen test, which sends symptoms into the entire hand. Sensation to light touch feels decreased in the ulnar nerve distribution of the left hand when compared to the right. It is equal in the median nerve distribution. Repetitive elbow flexion and extension does not cause an exacerbation of her symptoms. DIAGNOSTIC STUDIES/LAB DATA: EMG nerve conduction study showed an ulnar neuropathy at the left elbow. IMPRESSION: Left carpal tunnel syndrome and ulnar neuropathy at the elbow. PLAN: The patient is scheduled to undergo a left wrist carpal tunnel release and an ulnar nerve decompression at the left elbow with Dr. Siddiqi on 06/23/19. She will return to the office 10 days postop for followup and suture removal. Prescription for Revloc was e-scribed to the patient's pharmacy for postoperative pain management. TISH DURBIN [id number]/[facility] #: [id number]
[~2019-07-14 08:42] MED LIST changes: -Acetaminophen TAB* 325 MG PO PRN; -Buffered Lidocaine 0.9% SYRIN* 5 ML/SYR SYRINGE INTRADERM ONE; +Buffered Lidocaine 1% SYRIN* 1 ML/SYRINGE INTRADERM ONE; +Bupivacaine 0.5%* 50 ML MDV VIAL ONE; +Lactated Ringers 1000 ML Bag* 1,000 ML IV SCH; +Levalbuterol 0.63MG/3ML NEB* UNIT OF USE INH ONE; +Lidocaine 1% INJ* 10 MG/ML 30 ML SDV ONE; +Midazolam* 1 MG/ML 5 ML VIAL (5 MG) ONE; +Propofol* 10 MG/ML 20 ML BTL ONE; +ceFAZolin 2 GM in NS PREMIX(*) 2 GM/100 ML BAG IVPB ONE; +fentaNYL* 50 MCG/ML 2 ML VIAL (100 MCG VIAL) ONE
[2019-07-14 10:08] LABS: Activated Partial Thrombo Time 60.7 seconds (26.0-38.0); INR 0.94 (0.82-1.09)
[2019-07-14 13:19] VITALS: BP 116/85
--- NOTE | 2019-07-14 13:25 | OP ---
CC: Dr. Siddiqi* OPERATIVE REPORT: DATE OF OPERATION: 07/14/19 - SDS DATE OF : 61 SURGEON: Joan Siddiqi MD SUSTAINABLE DESIGN COORDINATOR: TISH Arguello ANESTHESIOLOGIST: Radha Garay MD ANESTHESIA: Local MAC. PRE-OP DIAGNOSIS: Left carpal tunnel syndrome and ulnar nerve compression at the left elbow. POST-OP DIAGNOSIS: Left carpal tunnel syndrome and ulnar nerve compression at the left elbow. OPERATIVE PROCEDURE: Ulnar nerve decompression at the left elbow and left carpal tunnel release. ESTIMATED BLOOD LOSS: Zero. TOURNIQUET TIME: About 40 minutes. INDICATION FOR PROCEDURE: Belle is a 54-year-old female who has numbness and tingling in her left hand. Nerve conduction studies shows ulnar nerve compression at the elbow and median nerve compression at the wrist. She presents for left carpal tunnel release and ulnar nerve decompression at the elbow. DESCRIPTION OF PROCEDURE: The patient was brought to the operating room and was given a sedation anesthetic and a local infiltration of 10 cc of 1% plain lidocaine in the palm of the left hand and 20 cc of 0.5% plain Marcaine on the medial aspect of the left elbow. The skin of her left upper extremity was prepped and draped in the usual sterile fashion. The hand and forearm and elbow were exsanguinated and the tourniquet elevated to 250 mmHg. A longitudinal incision was made in the palm in line with the ring finger. We dissected through the subcutaneous tissue down to the transverse carpal ligament. The ligament was divided sharply with a knife and then more proximally with the scissors. The nerve was dissected free from the surrounding tissue and there was an area of moderate compression at the mid portion of the ligament. The wound was irrigated and the skin edges were reapproximated with 4-0 nylon suture. Next, a medial incision was made curvilinear between the medial epicondyle and the tip of the olecranon process. We dissected through the subcutaneous tissue down to the cubital tunnel. The nerve was located in the proximal aspect of the cubital tunnel and completely dissected out proximally for several centimeters. The Tinajero's ligament over the cubital tunnel was released, this was the area of maximum compression of the nerve. The superficial and deep portions of the FCU fascia were incised down into the forearm completely freeing the nerve. The medial intramuscular septum was then divided. The wound was copiously irrigated with saline. Hemostasis was achieved with the Bovie. The subcutaneous tissue was closed with 2-0 Polysorb and the skin with skin jose. The wounds were dressed with Xeroform, 4x4, Webril, and Justin wrap. The patient tolerated the procedure well, was brought to the recovery room in good condition. [id number] #: [id number] MTDD
== END | disposition home or self-care (01) ==
LOC: OR 08:42
PROVIDERS: ATTEND Orthopaedic Surgery
DX: G56.02 Carpal tunnel syndrome, left upper limb (principal); G56.22 Lesion of ulnar nerve, left upper limb; Z86.711 Personal history of pulmonary embolism; Z79.01 Long term (current) use of anticoagulants; J44.9 Chronic obstructive pulmonary disease, unspecified; K21.9 Gastro-esophageal reflux disease without esophagitis; F41.8 Other specified anxiety disorders; Z85.118 Personal history of other malignant neoplasm of bronchus and lung; Z79.899 Other long term (current) drug therapy
CPT/HCPCS: 36415; 85610; 85730; J0690; J2250; J2704; J3010; J3490

== ENCOUNTER 2021-03-24 19:32 | Inpatient (IN) ==
[2021-03-24 20:59] LABS: Urine Appearance Clear; Urine Bilirubin Negative (Negative); Urine Blood Negative (Negative); Urine Color Yellow; Urine Glucose Negative (Negative); Urine Ketones Negative (Negative); Urine Nitrite Negative (Negative); Urine Protein Negative (Negative); Urine Specific Gravity 1.006 (1.002-1.030); Urine Urobilinogen Negative (Negative)
[2021-03-24 21:03] LABS: Urine Benzodiazepine Screen None Detected (None Detect); Urine Cannabinoids Screen None Detected (None Detect); Urine Opiates Screen Presumptive Positive (None Detect)
[2021-03-24 22:20] LABS: ABS Basophils 0.1 10^3/ul (0-0.2); ABS Lymphocytes 2.3 10^3/ul (1.0-4.8); ABS Monocytes 0.7 10^3/ul (0-0.8); ABS Neutrophils 8.2 10^3/ul (1.5-7.7); Eosinophil % 0.1 %; Hematocrit 42 % (35-47); Hemoglobin 14.1 g/dL (12.0-16.0); Lymphocyte % 20.6 %; Mean Corpuscular HGB Conc 33 g/dL (31-36); Mean Corpuscular Hemoglobin 30 pg (27-31); Mean Corpuscular Volume 89 fL (80-97); Mean Platelet Volume 9.4 fL (7.4-10.4); Platelet Count 178 10^3/uL (150-450); Red Blood Count 4.72 10^6 /uL (3.70-4.87); Red Cell Distribution Width 15 % (10-15); White Blood Count 11.3 10^3/uL (3.5-10.8)
[2021-03-24 22:40] LABS: ALT 28 U/L (7-52); AST 17 U/L (13-39); Albumin 3.8 g/dL (3.2-5.2); Albumin/Globulin Ratio 1.3 (1-3); Alkaline Phosphatase 122 U/L (34-104); Anion Gap 9 mmol/L (2-11); Blood Urea Nitrogen 10 mg/dL (6-24); CO2 Carbon Dioxide 27 mmol/L (22-32); Calcium 8.8 mg/dL (8.6-10.3); Chloride 101 mmol/L (101-111); EGFR African American 97.5 (>60); EGFR Non-African American 80.6 (>60); Globulin 2.9 g/dL (2-4); Glucose 90 mg/dL (70-100); Potassium 3.9 mmol/L (3.5-5.0); Sodium 137 mmol/L (135-145); Total Protein 6.7 g/dL (6.4-8.9)
[2021-03-24 22:41] LABS: Acetaminophen < 15 mcg/mL; Alcohol, S < 10 mg/dL (<10); Salicylate < 2.50 mg/dL (<30)
[2021-03-24 22:56] LABS: TSH Ultra Thyroid Stim Horm 3.07 mcIU/mL (0.34-5.60)
[2021-03-25 00:15] LABS: INR 2.09 (0.82-1.09)
[2021-03-25] MEDS ORDERED: HYDROcodone/ACET. 7.5/325 LIQ 15 ML UDC PO PRN (01:32)
[2021-03-25] MEDS ORDERED: Al Hydrox/Mg Hydrox/Simet LIQ 30 ML UDC PO PRN (02:49)
[2021-03-25] MEDS ORDERED: Warfarin per PHARMACY **NOTE FOLLOW UP SCH (10:00)
[2021-03-25] MEDS: DULoxetine DR 30 mg CAP PO SCH (10:04)
[2021-03-25] MEDS: Tiotropium Brom/Olodaterol MDI INH SCH (10:05)
[2021-03-25] MEDS: Vitamin THERAPEUTIC TAB PO SCH (10:05)
[2021-03-25] MEDS: Nicotine PATCH 21 MG/24 HR PATCH TRANSDERM SCH (16:37)
[2021-03-25] MEDS: Warfarin DAILY REMINDER **NOTE FOLLOW UP SCH (16:48)
[2021-03-25] MEDS: HYDROcodone/ACET. 7.5/325 LIQ 15 ML UDC PO PRN (19:15)
[2021-03-25] MEDS: Albuterol HFA INHALER 8 gm MDI INH PRN (19:23)
[2021-03-26 08:08] LABS: HDL Cholesterol 46.6 mg/dL
[2021-03-26 08:15] LABS: INR 2.06 (0.82-1.09)
[2021-03-26] MEDS: Nicotine PATCH 21 MG/24 HR PATCH TRANSDERM SCH (09:17)
[2021-03-26] MEDS: DULoxetine DR 30 mg CAP PO SCH (09:19)
[2021-03-26] MEDS: Vitamin THERAPEUTIC TAB PO SCH (09:21)
[2021-03-26] MEDS: Tiotropium Brom/Olodaterol MDI INH SCH (09:22)
[2021-03-26] MEDS: Albuterol HFA INHALER 8 gm MDI INH PRN ×2 (09:29→22:14)
[2021-03-26] MEDS: Nicotine GUM 2MG FRUIT FLAVOR PO PRN ×4 (11:42→18:17)
[2021-03-26] MEDS: Warfarin DAILY REMINDER **NOTE FOLLOW UP SCH (16:21)
[2021-03-26] MEDS: HYDROcodone/ACET. 7.5/325 LIQ 15 ML UDC PO PRN (18:38)
[2021-03-27] MEDS: Vitamin THERAPEUTIC TAB PO SCH (10:19)
[2021-03-27] MEDS: DULoxetine DR 30 mg CAP PO SCH (10:19)
[2021-03-27] MEDS: Nicotine PATCH 21 MG/24 HR PATCH TRANSDERM SCH (10:20)
[2021-03-27] MEDS: Tiotropium Brom/Olodaterol MDI INH SCH (10:21)
[2021-03-27] MEDS: Nicotine GUM 2MG FRUIT FLAVOR PO PRN (10:23)
[2021-03-27] MEDS: HYDROcodone/ACET. 7.5/325 LIQ 15 ML UDC PO PRN ×2 (11:24→17:14)
[2021-03-27] MEDS: Albuterol HFA INHALER 8 gm MDI INH PRN ×2 (11:43→14:50)
[2021-03-27] MEDS ORDERED: Nicotine GUM 4MG FRUIT FLAVOR PO ONE (12:16)
[2021-03-27] MEDS: Nicotine GUM 4MG FRUIT FLAVOR PO PRN ×3 (13:42→18:05)
[2021-03-27] MEDS: Warfarin DAILY REMINDER **NOTE FOLLOW UP SCH (17:31)
[2021-03-28 08:43] LABS: INR 1.61 (0.82-1.09)
[2021-03-28] MEDS: Vitamin THERAPEUTIC TAB PO SCH (09:58)
[2021-03-28] MEDS: Nicotine PATCH 21 MG/24 HR PATCH TRANSDERM SCH (09:58)
[2021-03-28] MEDS: DULoxetine DR 30 mg CAP PO SCH (09:59)
[2021-03-28] MEDS: Tiotropium Brom/Olodaterol MDI INH SCH (10:02)
[2021-03-28] MEDS: Nicotine GUM 4MG FRUIT FLAVOR PO PRN ×3 (10:03→15:15)
[2021-03-28 10:07] VITALS: BP 119/94
[2021-03-28] MEDS: Albuterol HFA INHALER 8 gm MDI INH PRN ×2 (11:00→16:21)
[2021-03-28] MEDS ORDERED: Nicotine Lozenge mini 4 MG LOZNG.MINI MT PRN (12:05)
[2021-03-28] MEDS: HYDROcodone/ACET. 7.5/325 LIQ 15 ML UDC PO PRN ×2 (12:56→17:38)
[2021-03-28] MEDS: Warfarin DAILY REMINDER **NOTE FOLLOW UP SCH (17:38)
== END 2021-03-28 18:30 | disposition home or self-care (01) | DRG 885 ==
LOC: ED 19:32 → BSU 03-25 01:13
PROVIDERS: ADMIT Psychiatry & Neurology Psychiatry; ATTEND Psychiatry & Neurology Psychiatry

== ENCOUNTER 2022-01-09 18:43 | Inpatient (IN) ==
[2022-01-09 20:12] LABS: ABS Lymphocytes 2.1 10^3/ul (1.0-4.8); ABS Monocytes 0.8 10^3/ul (0-0.8); ABS Neutrophils 6.9 10^3/ul (1.5-7.7); Eosinophil % 0.2 %; Hematocrit 44 % (35-47); Hemoglobin 15.1 g/dL (12.0-16.0); Lymphocyte % 21.2 %; Mean Corpuscular HGB Conc 34 g/dL (31-36); Mean Corpuscular Hemoglobin 31 pg (27-31); Mean Corpuscular Volume 90 fL (80-97); Mean Platelet Volume 8.9 fL (7.4-10.4); Nucleated Red Blood Cells % 0.1; Platelet Count 147 10^3/uL (150-450); Red Blood Count 4.94 10^6 /uL (3.70-4.87); Red Cell Distribution Width 14 % (10-15); White Blood Count 9.8 10^3/uL (3.5-10.8)
[2022-01-09 20:14] LABS: Urine Appearance Cloudy; Urine Bilirubin Negative (Negative); Urine Blood Negative (Negative); Urine Color Yellow; Urine Glucose Negative (Negative); Urine Ketones Negative (Negative); Urine Nitrite Negative (Negative); Urine Protein Negative (Negative); Urine Specific Gravity 1.003 (1.002-1.030); Urine Urobilinogen Negative (Negative)
[2022-01-09 20:20] LABS: Urine Bacteria 1+ (Absent); Urine Red Blood Cell Trace(0-2/hpf) (Absent); Urine Squamous Epithelial Cell Present (Absent); Urine White Blood Cell Trace(0-5/hpf) (Absent)
[2022-01-09 20:28] LABS: ALT 108 U/L (7-52); AST 90 U/L (13-39); Albumin 4.4 g/dL (3.2-5.2); Albumin/Globulin Ratio 1.6 (1-3); Alkaline Phosphatase 156 U/L (35-149); Anion Gap 11 mmol/L (2-11); Blood Urea Nitrogen 9 mg/dL (6-24); CO2 Carbon Dioxide 25 mmol/L (22-32); Calcium 9.3 mg/dL (8.6-10.3); Chloride 101 mmol/L (101-111); Globulin 2.7 g/dL (2-4); Glucose 91 mg/dL (70-100); Potassium 3.8 mmol/L (3.5-5.0); Sodium 137 mmol/L (135-145); Total Protein 7.1 g/dL (6.4-8.9); eGFR CKD-EPI 89.4 (>60)
[2022-01-09 20:38] LABS: Acetaminophen < 15 mcg/mL; Alcohol, S < 13 mg/dL (<13); Salicylate < 2.50 mg/dL (<30)
[2022-01-09 20:44] LABS: Urine Benzodiazepine Screen None Detected (None Detect); Urine Cannabinoids Screen None Detected (None Detect); Urine Opiates Screen None Detected (None Detect)
[2022-01-09 20:53] LABS: TSH Ultra Thyroid Stim Horm 5.51 mcIU/mL (0.34-5.60)
[2022-01-09 21:57] LABS: INR 2.51 (0.86-1.15)
[2022-01-09] MEDS ORDERED: Albuterol HFA INHALER 8 gm MDI INH PRN (22:32)
[2022-01-09] MEDS: oxyCODONE/Acetamin 5/325 mg TAB PO PRN (23:11)
[2022-01-10 09:18] LABS: HDL Cholesterol 50.6 mg/dL
[2022-01-10] MEDS: Tiotropium Brom/Olodaterol MDI INH SCH (10:06)
[2022-01-10] MEDS: Vitamin THERAPEUTIC TAB PO SCH (10:06)
[2022-01-10] MEDS: Nicotine PATCH 21 MG/24 HR PATCH TRANSDERM SCH (11:51)
[2022-01-10] MEDS: Nicotine GUM 4MG FRUIT FLAVOR PO PRN ×2 (12:10→14:14)
[2022-01-10] MEDS: oxyCODONE/Acetamin 5/325 mg TAB PO PRN (16:24)
[2022-01-10] MEDS: CIMETIDINE 800 MG PO SCH (19:47)
[2022-01-11] MEDS: Tiotropium Brom/Olodaterol MDI INH SCH (09:14)
[2022-01-11] MEDS: Nicotine PATCH 21 MG/24 HR PATCH TRANSDERM SCH (09:15)
[2022-01-11] MEDS: Vitamin THERAPEUTIC TAB PO SCH (09:15)
[2022-01-11] MEDS: Nicotine GUM 4MG FRUIT FLAVOR PO PRN ×3 (09:28→13:39)
[2022-01-11] MEDS: oxyCODONE/Acetamin 5/325 mg TAB PO PRN ×2 (10:54→17:45)
[2022-01-11 18:13] LABS: Urine Appearance Cloudy; Urine Bilirubin Negative (Negative); Urine Blood Negative (Negative); Urine Color Yellow; Urine Glucose Negative (Negative); Urine Ketones Negative (Negative); Urine Nitrite Negative (Negative); Urine Protein Negative (Negative); Urine Urobilinogen Negative (Negative)
[2022-01-11 18:20] LABS: Urine Bacteria Absent (Absent); Urine Red Blood Cell Absent (Absent); Urine Squamous Epithelial Cell Present (Absent); Urine White Blood Cell 1+(6-10/hpf) (Absent)
[2022-01-11] MEDS: CIMETIDINE 800 MG PO SCH (20:46)
[2022-01-12] MEDS: Vitamin THERAPEUTIC TAB PO SCH (08:38)
[2022-01-12] MEDS: Tiotropium Brom/Olodaterol MDI INH SCH (08:41)
[2022-01-12] MEDS: Nicotine PATCH 21 MG/24 HR PATCH TRANSDERM SCH (08:44)
[2022-01-12] MEDS: Nicotine GUM 4MG FRUIT FLAVOR PO PRN ×5 (08:45→21:09)
[2022-01-12] MEDS: oxyCODONE/Acetamin 5/325 mg TAB PO PRN ×2 (11:00→20:01)
[2022-01-12] MEDS: CIMETIDINE 800 MG PO SCH (19:54)
[2022-01-13 04:34] LABS: Clozapine 165 ng/mL (350-600); Clozapine & Norclozapine Level 258 ng/mL; Norclozapine 93 ng/mL
[2022-01-13] MEDS: Vitamin THERAPEUTIC TAB PO SCH (09:17)
[2022-01-13] MEDS: Nicotine PATCH 21 MG/24 HR PATCH TRANSDERM SCH (09:19)
[2022-01-13] MEDS: Tiotropium Brom/Olodaterol MDI INH SCH (09:19)
[2022-01-13] MEDS: Nicotine GUM 4MG FRUIT FLAVOR PO PRN (09:21)
[2022-01-13 09:45] VITALS: BP 111/81
[2022-01-13] MEDS: oxyCODONE/Acetamin 5/325 mg TAB PO PRN (09:53)
== END 2022-01-13 13:37 | disposition home or self-care (01) | DRG 885 ==
LOC: ED 18:43 → BSU 21:05
PROVIDERS: ADMIT Psychiatry & Neurology Psychiatry; ATTEND Psychiatry & Neurology Psychiatry

== ENCOUNTER 2022-08-22 18:13 | Inpatient (IN) ==
[2022-08-22] MEDS ORDERED: Ondansetron ODT 4 mg TAB 4 MG TAB PO ONE ×2 (19:09→22:23)
[2022-08-22 20:40] LABS: ABS Basophils 0.1 10^3/ul (0-0.2); ABS Monocytes 0.8 10^3/ul (0-0.8); ABS Neutrophils 9.2 10^3/ul (1.5-7.7); Eosinophil % 0.2 %; Hematocrit 45 % (35-47); Hemoglobin 15.1 g/dL (12.0-16.0); Lymphocyte % 23.1 %; Mean Corpuscular HGB Conc 34 g/dL (31-36); Mean Corpuscular Hemoglobin 31 pg (27-31); Mean Corpuscular Volume 91 fL (80-97); Mean Platelet Volume 8.6 fL (7.4-10.4); Platelet Count 203 10^3/uL (150-450); Red Blood Count 4.92 10^6 /uL (3.70-4.87); Red Cell Distribution Width 15 % (10-15); White Blood Count 13.1 10^3/uL (3.5-10.8)
[2022-08-22 21:14] LABS: ALT 15 U/L (7-52); AST 13 U/L (13-39); Acetaminophen < 15 mcg/mL; Albumin 4.2 g/dL (3.2-5.2); Albumin/Globulin Ratio 1.8 (1-3); Alcohol, S < 13 mg/dL (<13); Alkaline Phosphatase 97 U/L (35-149); Anion Gap 14 mmol/L (2-11); Blood Urea Nitrogen 7 mg/dL (6-24); CO2 Carbon Dioxide 24 mmol/L (22-32); Calcium 9.3 mg/dL (8.6-10.3); Chloride 102 mmol/L (101-111); Globulin 2.4 g/dL (2-4); Glucose 95 mg/dL (70-100); Potassium 3.9 mmol/L (3.5-5.0); Salicylate < 2.50 mg/dL (<30); Sodium 140 mmol/L (135-145); Total Protein 6.6 g/dL (6.4-8.9); eGFR CKD-EPI 94.7 (>60)
[2022-08-22 21:28] LABS: TSH Ultra Thyroid Stim Horm 3.22 mcIU/mL (0.34-5.60)
[2022-08-22 22:01] LABS: Urine Appearance Clear; Urine Bilirubin Negative (Negative); Urine Blood Negative (Negative); Urine Color Yellow; Urine Glucose Negative (Negative); Urine Ketones Trace (Negative); Urine Nitrite Negative (Negative); Urine Protein Negative (Negative); Urine Specific Gravity 1.005 (1.002-1.030); Urine Urobilinogen Negative (Negative)
[2022-08-22 22:16] LABS: Urine Benzodiazepine Screen None Detected (None Detect); Urine Cannabinoids Screen None Detected (None Detect); Urine Opiates Screen None Detected (None Detect)
[2022-08-22] MEDS ORDERED: Iohexol 350 (CONTRAST) 500 ML MDV IV ONE (22:27)
[2022-08-23] MEDS ORDERED: Al Hydrox/Mg Hydrox/Simet LIQ 30 ML UDC PO PRN (00:39)
[2022-08-23] MEDS: Ondansetron ODT 4 mg TAB 4 MG TAB PO PRN ×3 (04:12→21:21)
[2022-08-23] MEDS: Nicotine PATCH 21 MG/24 HR PATCH TRANSDERM SCH (10:51)
[2022-08-23] MEDS: Vitamin THERAPEUTIC TAB PO SCH (10:53)
[2022-08-23] MEDS: Tiotropium Brom/Olodaterol MDI INH SCH (10:54)
[2022-08-23] MEDS: Nicotine GUM 4MG FRUIT FLAVOR PO PRN ×2 (14:39→17:19)
[2022-08-23] MEDS ORDERED: Nicotine GUM 4MG FRUIT FLAVOR PO ONE (14:39)
[2022-08-23] MEDS: Warfarin DAILY REMINDER **NOTE FOLLOW UP SCH (18:08)
[2022-08-23] MEDS: oxyCODONE/Acetamin 5/325 mg TAB PO PRN (18:52)
[2022-08-23] MEDS: DULoxetine DR 30 mg CAP PO SCH (20:34)
[2022-08-23] MEDS: Albuterol HFA INHALER 8 gm MDI INH PRN (22:44)
[2022-08-24] MEDS: Tiotropium Brom/Olodaterol MDI INH SCH (09:59)
[2022-08-24] MEDS: Vitamin THERAPEUTIC TAB PO SCH (10:00)
[2022-08-24] MEDS: Nicotine PATCH 21 MG/24 HR PATCH TRANSDERM SCH (10:02)
[2022-08-24] MEDS: Nicotine GUM 4MG FRUIT FLAVOR PO PRN ×3 (10:36→17:31)
[2022-08-24] MEDS: Ondansetron ODT 4 mg TAB 4 MG TAB PO PRN (14:05)
[2022-08-24 18:14] LABS: INR 2.1 (0.89-1.11)
[2022-08-24] MEDS: oxyCODONE/Acetamin 5/325 mg TAB PO PRN (18:28)
[2022-08-24] MEDS: Warfarin DAILY REMINDER **NOTE FOLLOW UP SCH (19:51)
[2022-08-24] MEDS: DULoxetine DR 30 mg CAP PO SCH (20:47)
[2022-08-25] MEDS: Ondansetron ODT 4 mg TAB 4 MG TAB PO PRN (09:45)
[2022-08-25] MEDS: Tiotropium Brom/Olodaterol MDI INH SCH (09:48)
[2022-08-25] MEDS: Vitamin THERAPEUTIC TAB PO SCH (09:48)
[2022-08-25] MEDS: Nicotine PATCH 21 MG/24 HR PATCH TRANSDERM SCH (09:51)
[2022-08-25 10:30] VITALS: BP 112/82
[2022-08-25] MEDS: Nicotine GUM 4MG FRUIT FLAVOR PO PRN ×2 (11:06→14:31)
[2022-08-25] MEDS: Albuterol HFA INHALER 8 gm MDI INH PRN (13:26)
== END 2022-08-25 17:30 | disposition home health service (06) | DRG 885 ==
LOC: ED 18:13 → EDHOLD 22:35 → BSU 08-23 04:01
PROVIDERS: ADMIT Psychiatry & Neurology Psychiatry; ATTEND Psychiatry & Neurology Psychiatry

== ENCOUNTER 2024-11-15 22:54 | Inpatient (IN) ==
[2024-11-15] MEDS: Lactated Ringers 1000 ml BAG 1,000 ML IV ONE (23:10)
[2024-11-15 23:40] LABS: INR 2.58 (0.85-1.14)
[2024-11-15 23:54] LABS: High Sens Troponin Baseline 9 pg/mL (<15)
[2024-11-16] LABS: ABS Lymphocytes 1.9 10^3/uL (1.0-4.8); ABS Monocytes 1.2 10^3/uL (0.0-0.9); ABS Neutrophils 16.9 10^3/uL (1.5-7.6); ABS Nucleated RBC 0.02 10^3/ul; Hematocrit 34.6 % (35-45); Hemoglobin 11.8 g/dL (11.5-14.3); Lymphocyte % 9.3 %; Mean Corpuscular Hemoglobin 31.2 pg (27-33); Mean Corpuscular Hgb Conc 34.1 g/dL (31-36); Mean Corpuscular Volume 91.5 fL (80-97); Nucleated Red Blood Cells % 0.1 %/100WBC (0.0-0.8); Platelet Count 156 10^3/uL (150-450); Red Blood Count 3.78 10^6/uL (3.63-4.92); Red Cell Distribution Width 14.5 % (12-17); White Blood Count 19.9 10^3/uL (3.8-11.8)
[2024-11-16 00:17] LABS: ALT 17 U/L (7-52); AST 17 U/L (13-39); Albumin 3.5 g/dL (3.5-5.7); Albumin/Globulin Ratio 2.1 (1-3); Alcohol, S < 13 mg/dL (<13); Alkaline Phosphatase 90 U/L (35-149); Anion Gap 7 mmol/L (2-16); Blood Urea Nitrogen 17 mg/dL (6-24); C Reactive Protein 2.96 mg/L (<8.01); CO2 Carbon Dioxide 26 mmol/L (22-32); Calcium 8.7 mg/dL (8.6-10.3); Chloride 96 mmol/L (101-111); Creatinine, Serum 0.88 mg/dL (0.51-0.95); Globulin 1.7 g/dL (2-4); Glucose 237 mg/dL (70-100); Sodium 129 mmol/L (135-145); Total Bilirubin 0.4 mg/dL (0.2-1.0); Total Protein 5.2 g/dL (6.4-8.9); eGFR CKD-EPI 74.7 (>60)
[2024-11-16] MEDS: NS 0.9% 500 ml BAG 500 ML IV ONE (00:31)
[2024-11-16] MEDS: cefTRIAXone 1 gm/50 mL D5W 1 GM/50 ML BAG IV ONE (00:31)
[2024-11-16] MEDS: Prothrombin Complex Conc. DOSE = Units Factor IX (nine) IV SLOW PU ONE (01:10)
[2024-11-16 01:18] LABS: High Sensitivity Troponin 1 Hr 21 pg/mL (<15)
[2024-11-16 01:46] LABS: Hematocrit 30.7 % (35-45); Hemoglobin 10.6 g/dL (11.5-14.3)
[2024-11-16] MEDS ORDERED: Phenylephrine IV 10 MG/ML 1 ml VIAL ONE (01:50)
[2024-11-16] MEDS ORDERED: Lidocaine 2% PF 5 ML VIAL ONE (01:50)
[2024-11-16] MEDS ORDERED: Propofol 10 MG/ML 20 ML BTL ONE (01:53)
[2024-11-16] MEDS ORDERED: Succinylcholine 200 mg VIAL 20 mg/ml 10 ml VIAL (200 mg) ONE (01:55)
[2024-11-16] MEDS ORDERED: Bupivacaine 0.25% EPI 200,000 30 ML SDV ONE (02:23)
[2024-11-16] MEDS ORDERED: Midazolam 2 mg/2 ml VIAL 1 mg/ml 2 ml VIAL (2 mg) ONE (02:41)
[2024-11-16] MEDS ORDERED: fentaNYL 100 mcg/2 ml 50 MCG/ML VIAL ONE (02:41)
[2024-11-16] MEDS: Iodixanol 320 (CONTRAST) 100 ML SDV IV ONE (03:05)
[2024-11-16] MEDS ORDERED: Rocuronium 50 mg VIAL 10 mg/ml 5 ml VIAL (50 mg) ONE ×2 (03:22→04:04)
[2024-11-16] MEDS ORDERED: Ondansetron 4 mg VIAL 2 MG/ML 2 ml VIAL ONE (03:42)
[2024-11-16] MEDS ORDERED: Dexamethasone IV 4 MG/ML VIAL 1 ml VIAL ONE (03:42)
[2024-11-16] MEDS ORDERED: Atropine 0.1 MG/ML 10 ml SYR (1 mg) ONE (04:05)
[2024-11-16] MEDS ORDERED: EPINEPHrine SYR 0.1MG/ML 10 ml SYRINGE IV ONE (04:05)
[2024-11-16] MEDS: Ondansetron 4 mg VIAL 2 MG/ML 2 ml VIAL IV PRN (05:35)
[2024-11-16 05:59] LABS: Hematocrit 31.4 % (35-45); Mean Corpuscular Hemoglobin 30.4 pg (27-33); Mean Corpuscular Volume 86.9 fL (80-97); Red Blood Count 3.62 10^6/uL (3.63-4.92); Red Cell Distribution Width 16.3 % (12-17); White Blood Count 21.5 10^3/uL (3.8-11.8)
[2024-11-16] MEDS ORDERED: Chlorhexidine MOUTHWASH 0.12% 15 ML UDC TOPICAL SCH (06:00)
[2024-11-16 06:28] LABS: Albumin 2.9 g/dL (3.5-5.7); Albumin/Globulin Ratio 2.2 (1-3); Calcium 7.5 mg/dL (8.6-10.3); Creatinine, Serum 0.56 mg/dL (0.51-0.95); Globulin 1.3 g/dL (2-4); Potassium 4.2 mmol/L (3.5-5.0); Total Bilirubin 0.6 mg/dL (0.2-1.0); Total Protein 4.2 g/dL (6.4-8.9); eGFR CKD-EPI 103.8 (>60)
[2024-11-16 06:37] LABS: ABS Basophils 0.1 10^3/uL (0.0-0.1); ABS Lymphocytes 0.8 10^3/uL (1.0-4.8); ABS Monocytes 0.9 10^3/uL (0.0-0.9); ABS Neutrophils 19.8 10^3/uL (1.5-7.6); Lymphocyte % 3.9 %; Mean Platelet Volume 9.6 fL (7.5-11.2); Platelet Count 100 10^3/uL (150-450)
[2024-11-16 07:59] LABS: Magnesium 1.6 mg/dL (1.9-2.7); Phosphorus 4.3 mg/dL (2.5-5.0)
[2024-11-16] MEDS: Lactated Ringers 1000 ml BAG 1,000 ML IV SCH (09:14)
[2024-11-16] MEDS: Magnesium Sulf 4 GM/100 ML IV 4,000 MG/100 ML BAG IVPB ONE (09:42)
[2024-11-16] MEDS: HYDROmorphone 1 MG/1 ML SYRINGE IV SLOW PU PRN ×2 (09:44→21:53)
[2024-11-16] MEDS: Famotidine IV 10 MG/ML 2 ml VIAL (20 mg) IV SLOW PU SCH (09:44)
[2024-11-16 12:31] LABS: Hematocrit 31.4 % (35-45); Hemoglobin 10.8 g/dL (11.5-14.3); Mean Corpuscular Hemoglobin 29.5 pg (27-33); Mean Corpuscular Hgb Conc 34.3 g/dL (31-36); Mean Corpuscular Volume 85.9 fL (80-97); Mean Platelet Volume 9.2 fL (7.5-11.2); Platelet Count 114 10^3/uL (150-450); Red Blood Count 3.66 10^6/uL (3.63-4.92); White Blood Count 28.3 10^3/uL (3.8-11.8)
[2024-11-16] MEDS: cefTRIAXone 1 gm/50 mL D5W 1 GM/50 ML BAG IV SCH (12:55)
[2024-11-16] MEDS: oxyCODONE/Acetamin 5/325 mg TAB PO PRN (12:58)
[2024-11-16 13:07] LABS: ABS Lymphocytes 0.6 10^3/uL (1.0-4.8); ABS Monocytes 1.1 10^3/uL (0.0-0.9); ABS Neutrophils 26.5 10^3/uL (1.5-7.6); ABS Nucleated RBC 0.01 10^3/ul; Lymphocyte % 2.2 %; RBC Morphology Normal (Normal)
[2024-11-16] MEDS ORDERED: Senna TAB 8.6 mg TAB PO PRN (15:00)
[2024-11-16] MEDS ORDERED: Ondansetron ODT 4 mg TAB 4 MG TAB PO PRN (15:04)
[2024-11-16 16:28] LABS: INR 1.73 (0.85-1.14)
[2024-11-16] MEDS: Enoxaparin 40 MG/0.4 ML SYR SUBCUT SCH (17:01)
[2024-11-16 17:02] LABS: Calcium 7.8 mg/dL (8.6-10.3); Creatinine, Serum 0.6 mg/dL (0.51-0.95); Potassium 4.6 mmol/L (3.5-5.0); eGFR CKD-EPI 102.1 (>60)
[2024-11-16] MEDS: Albuterol HFA INHALER 8 gm MDI INH PRN (18:08)
[2024-11-16] MEDS: DULoxetine DR 30 mg CAP PO SCH (21:48)
[2024-11-16] MEDS ORDERED: cefTRIAXone 1 gm/50 mL D5W 1 GM/50 ML BAG IV SCH (23:00)
[2024-11-17 06:20] LABS: Hematocrit 25.2 % (35-45); Hemoglobin 8.7 g/dL (11.5-14.3); Mean Corpuscular Hemoglobin 29.9 pg (27-33); Mean Corpuscular Hgb Conc 34.7 g/dL (31-36); Mean Platelet Volume 9.3 fL (7.5-11.2); Platelet Count 110 10^3/uL (150-450); Red Blood Count 2.92 10^6/uL (3.63-4.92); Red Cell Distribution Width 16.7 % (12-17); White Blood Count 21.7 10^3/uL (3.8-11.8)
[2024-11-17 06:27] LABS: INR 2.02 (0.85-1.14)
[2024-11-17 06:45] LABS: Albumin/Globulin Ratio 1.8 (1-3); Calcium 7.8 mg/dL (8.6-10.3); Creatinine, Serum 0.59 mg/dL (0.51-0.95); Globulin 1.7 g/dL (2-4); Magnesium 2.1 mg/dL (1.9-2.7); Phosphorus 2.7 mg/dL (2.5-5.0); Potassium 4.1 mmol/L (3.5-5.0); Total Bilirubin 0.3 mg/dL (0.2-1.0); Total Protein 4.7 g/dL (6.4-8.9); eGFR CKD-EPI 102.5 (>60)
[2024-11-17] MEDS: Tiotropium Brom/Olodaterol MDI (ACUTE) INH SCH (07:09)
[2024-11-17 07:24] LABS: ABS Lymphocytes 2.6 10^3/uL (1.0-4.8); ABS Monocytes 1.9 10^3/uL (0.0-0.9); ABS Neutrophils 17.3 10^3/uL (1.5-7.6); Lymphocyte % 11.8 %
[2024-11-17] MEDS: Albuterol HFA INHALER 8 gm MDI INH PRN (09:43)
[2024-11-17] MEDS: Mometasone 220 MCG MDI INH SCH (12:45)
[2024-11-17 12:52] LABS: Hematocrit 25.1 % (35-45); Hemoglobin 8.7 g/dL (11.5-14.3)
[2024-11-17] MEDS: NS 0.9% 1000 ml BAG 1,000 ML IV SCH ×2 (13:02→14:19)
[2024-11-17] MEDS: Enoxaparin 40 MG/0.4 ML SYR SUBCUT SCH (16:20)
[2024-11-17 16:28] LABS: Urine Appearance Clear; Urine Bilirubin Negative (Negative); Urine Blood Negative (Negative); Urine Color Yellow; Urine Glucose Negative (Negative); Urine Ketones Negative (Negative); Urine Nitrite Negative (Negative); Urine Protein Negative (Negative); Urine Specific Gravity 1.014 (1.002-1.030); Urine Urobilinogen Negative (Negative); Urine pH 6.5 (5.0-8.0)
[2024-11-17] MEDS: Magnesium Hydroxide LIQ 30 ML UDC PO SCH (21:27)
[2024-11-18 06:01] LABS: ABS Eosinophils 0.2 10^3/uL (0.0-0.5); ABS Lymphocytes 2.4 10^3/uL (1.0-4.8); ABS Monocytes 1.3 10^3/uL (0.0-0.9); ABS Neutrophils 10.4 10^3/uL (1.5-7.6); ABS Nucleated RBC 0.02 10^3/ul; Eosinophil % 1.2 %; Hematocrit 21.4 % (35-45); Hemoglobin 7.5 g/dL (11.5-14.3); Lymphocyte % 16.8 %; Mean Corpuscular Hemoglobin 30.6 pg (27-33); Mean Corpuscular Hgb Conc 34.9 g/dL (31-36); Mean Corpuscular Volume 87.8 fL (80-97); Nucleated Red Blood Cells % 0.1 %/100WBC (0.0-0.8); Platelet Count 128 10^3/uL (150-450); Red Blood Count 2.44 10^6/uL (3.63-4.92); Red Cell Distribution Width 16.5 % (12-17); White Blood Count 14.3 10^3/uL (3.8-11.8)
[2024-11-19 14:42] LABS: Hemoglobin 7.7 g/dL (11.5-14.3)
[2024-11-19 20:56] LABS: ABS Eosinophils 0.2 10^3/uL (0.0-0.5); ABS Lymphocytes 2.3 10^3/uL (1.0-4.8); ABS Monocytes 1.1 10^3/uL (0.0-0.9); ABS Neutrophils 6.5 10^3/uL (1.5-7.6); ABS Nucleated RBC 0.04 10^3/ul; Eosinophil % 1.9 %; Hematocrit 25.7 % (35-45); Hemoglobin 8.9 g/dL (11.5-14.3); Lymphocyte % 22.7 %; Mean Corpuscular Hemoglobin 30.9 pg (27-33); Mean Corpuscular Hgb Conc 34.7 g/dL (31-36); Mean Platelet Volume 8.4 fL (7.5-11.2); Nucleated Red Blood Cells % 0.4 %/100WBC (0.0-0.8); Platelet Count 206 10^3/uL (150-450); Red Blood Count 2.89 10^6/uL (3.63-4.92); Red Cell Distribution Width 16.1 % (12-17); White Blood Count 10.1 10^3/uL (3.8-11.8)
[2024-11-20] MEDS ORDERED: Magnesium Hydroxide LIQ 30 ML UDC PO PRN (06:21)
[2024-11-20] MEDS: Calcium Citrate 200 mg TAB PO SCH (09:17)
[2024-11-20] MEDS: oxyCODONE/Acetamin 5/325 mg TAB PO PRN (11:41)
[2024-11-20] MEDS: Warfarin per PHARMACY **NOTE FOLLOW UP SCH (20:08)
[2024-11-21 05:32] LABS: ABS Eosinophils 0.2 10^3/uL (0.0-0.5); ABS Lymphocytes 1.8 10^3/uL (1.0-4.8); ABS Monocytes 1.1 10^3/uL (0.0-0.9); ABS Neutrophils 6.8 10^3/uL (1.5-7.6); ABS Nucleated RBC 0.02 10^3/ul; Eosinophil % 1.9 %; Hematocrit 29.8 % (35-45); Hemoglobin 10.1 g/dL (11.5-14.3); Lymphocyte % 18.3 %; Mean Corpuscular Hgb Conc 33.8 g/dL (31-36); Mean Corpuscular Volume 88.8 fL (80-97); Mean Platelet Volume 8.1 fL (7.5-11.2); Nucleated Red Blood Cells % 0.2 %/100WBC (0.0-0.8); Platelet Count 305 10^3/uL (150-450); Red Blood Count 3.36 10^6/uL (3.63-4.92); Red Cell Distribution Width 15.9 % (12-17)
[2024-11-21 05:37] LABS: INR 1.09 (0.85-1.14)
[2024-11-21 08:57] LABS: Rapid COVID-19 Molecular Undetected (Undetected)
[2024-11-21] MEDS: Enoxaparin 80 MG/0.8 ML SYR SUBCUT SCH (10:01)
[2024-11-21] MEDS: Warfarin DAILY REMINDER **NOTE FOLLOW UP SCH (12:59)
[2024-11-21] MEDS: Iohexol 350 (CONTRAST) 500 ML MDV IV ONE (22:44)
[2024-11-22 06:16] LABS: INR 1.47 (0.85-1.14)
[2024-11-22 10:16] VITALS: BP 100/59
[2024-11-22 12:59] LABS: Rapid COVID-19 Molecular Undetected (Undetected)
== END 2024-11-22 14:10 | DRG 799 ==
LOC: ED 22:54 → ICU 11-16 02:43 → EDHOLD 11-16 04:44 → MED 11-16 12:36 → SSU 11-21 11:56
PROVIDERS: ADMIT Surgery; ATTEND Surgery